=== PATIENT | female | born 1980 | race Caucasian/White ===

== ENCOUNTER 2016-04-10 10:37 | Inpatient (IN) | payer MEDICARE ==
[~2016-04-10] VITALS: Ht 160 cm; Wt 94.8 kg
[~2016-04-10 10:37] MED LIST: HYDR200T5 PO; HYDR2TAB15 PO; PRED5 PO; RIVA20TA PO; ZOLP10TA PO
[2016-04-10] MEDS ORDERED: METHYLPREDNISOLONE 125 MG INJ IV ONE (12:30)
[2016-04-10] MEDS ORDERED: FENTAnyl 50 MCG/ML VIAL IV ONE (12:30)
[2016-04-10] MEDS ORDERED: SOD CHLORIDE 0.9% 1,000 ML IV ONE ×2 (12:30→23:30)
[2016-04-10] MEDS ORDERED: DIPHENHYDRAMINE 50 MG INJ IV ONE ×2 (12:30→20:00)
[2016-04-10 12:47] LABS: ADD UMIC YES; URINE BILIRUBIN (Dip) NEGATIVE (NEGATIVE); URINE BLOOD (Dip) TRACE (NEGATIVE); URINE COLOR YELLOW (YELLOW); URINE GLUCOSE (Dip) NEGATIVE (NEGATIVE); URINE KETONES (Dip) NEGATIVE (NEGATIVE); URINE LEUKOCYTE ESTERASE (Dip) NEGATIVE (NEGATIVE); URINE NITRITE (Dip) NEGATIVE (NEGATIVE); URINE TOTAL PROTEIN (Dip) 1+ (NEGATIVE); URINE UROBILINOGEN (Dip) 0.2 E.U./dL (0.1-1.0)
[2016-04-10 12:48] LABS: BASOPHIL # 0.1 10^3/ul (0.0-0.1); BASOPHILS % 0.6 % (0.0-2.0); LYMPHOCYTES # 0.6 10^3/ul (0.8-2.9); LYMPHOCYTES % 4.3 % (15.0-51.0); MEAN CORPUSCULAR HEMOGLOBIN 28.8 pg (29.0-33.0); MEAN CORPUSCULAR HGB CONC 32.2 g/dl (32.0-37.0); MEAN CORPUSCULAR VOLUME 89.4 fl (82.0-101.0); MEAN PLATELET VOLUME 7.8 fl (7.4-10.4); MONOCYTES % 0.3 % (0.0-11.0); NEUTROPHIL # 13.7 10^3/ul (1.6-7.5); NEUTROPHILS % 94.8 % (39.0-77.0); PLATELET COUNT 246 10^3/UL (140-440); RED BLOOD COUNT 3.81 10^6/ul (4.20-5.40); RED CELL DISTRIBUTION WIDTH 20.9 % (11.5-14.5); UNCORRECTED WBC 14.4 10^3/ul (4.8-10.8); WHITE BLOOD COUNT 14.4 10^3/ul (4.8-10.8)
[2016-04-10 12:50] LABS: CONDITION 1; LH ANALYZER COMMENTS 1
[2016-04-10 12:51] LABS: CHLORIDE 105 mmol/L (97-110); POTASSIUM 4.6 mmol/L (3.5-5.1); SODIUM 141 mmol/L (135-144)
[2016-04-10 12:54] LABS: ANION GAP 16 (8-16); BLOOD UREA NITROGEN 23 mg/dl (7-20); CARBON DIOXIDE 25 mmol/L (21-31); CREATININE 0.88 mg/dl (0.44-1.00)
[2016-04-10 12:55] LABS: CALCIUM 9.4 mg/dl (8.4-10.2); GLUCOSE 122 mg/dl (70-220)
[2016-04-10] MEDS ORDERED: IOHEXOL 100 ML ONE (13:02)
[2016-04-10] MEDS ORDERED: SOD CHLORIDE 0.9% 100 ML ONE (13:03)
[2016-04-10 13:04] LABS: B-TYPE NATRIURETIC PEPTIDE 64 PG/ML (0-125)
[2016-04-10 13:06] LABS: INR 0.93; PROTIME 12.5 Sec (12.2-14.2)
[2016-04-10 13:07] LABS: PARTIAL THROMBOPLASTIN TIME 22.3 Sec (25.0-35.0)
[2016-04-10 13:09] LABS: TROPONIN-I < 0.012 ng/ml (0.00-0.12)
[2016-04-10 13:09] LABS: BACTERIA,URINE RARE; URINE RBCS 0-2 /HPF (0)
--- NOTE | 2016-04-10 13:38 | RADRPT ---
PROCEDURE: XR Chest. CLINICAL INDICATION: Chest pain. TECHNIQUE: Single frontal view of the chest was obtained. COMPARISON: None. FINDINGS: Cardiomediastinal silhouette appears normal Pulmonary vasculature appears normal. There is minimal discoid atelectasis at the right lung base. Costophrenic angles are well defined. The osseous elements appear intact. IMPRESSION: 1. Minimal right basilar discoid atelectasis. 2. No confluent airspace process identified. RPTAT: [facility] Physician Rebecca Date Time Electronically viewed and signed by Checo Chamberlain Physician on 04/10/2016 13:37 /
[2016-04-10] MEDS ORDERED: HYDROmorphONE 1 MG/ML SYG IV STA ×3 (14:07→19:06)
[2016-04-10] MEDS ORDERED: ONDANSETRON 4 MG INJ ONE (14:13)
[2016-04-10] MEDS ORDERED: ONDANSETRON 4 MG INJ IV STA (14:14)
--- NOTE | 2016-04-10 14:22 | RADRPT ---
PROCEDURE: CTA Chest and pulmonary angiogram. CLINICAL INDICATION: Chest pain and shortness of breath. TECHNIQUE: CT scan of the chest and CT pulmonary angiogram was performed on a multidetector high-r esolution CT scanner. High-resolution thin slice coronal and sagittal imaging was obtained from the axial source images. 3-D volumetric rendered post processing was performed as well. The patient w as examined following the uncomplicated intravenous administration of 100 cc of Omnipaque-300. The i mages were reviewed on a PACS workstation. The total exam CTDI equals 55.26 mGy, and the total exam DLP equals 827.72 mGy-cm. COMPARISON: CT pulmonary angiogram March 09, 2016 FINDINGS: There is no central or peripheral pulmonary embolism. Thoracic aorta is normal. No dissection or a neurysm is present. There is minimal atelectasis in the right costophrenic recess. A few scattered ill-defined nodular densities are seen in the right upper lobe suggestive of mild bronchiolitis. N o alveolar infiltrate or mass is present. There is no pleural or pericardial effusion. No pneumoth orax is present. No hilar or mediastinal adenopathy or masses seen. There is a left upper extremit y PICC line. No upper abdominal or adrenal mass is present. The gallbladder has been removed. Thoracic spine is normal. IMPRESSION: No pulmonary embolism. No aortic dissection or aneurysm. A few scattered ill-defined nodular densities right upper lobe suggestive of mild bronchiolitis. Post cholecystectomy. RPTAT: HMJB .Russ Turner MD, Date Time Electronically viewed and signed by .Russ Turner MD, MD on 04/10/2016 14:22 .A/
[2016-04-10] MEDS ORDERED: BEN50 PO (14:25)
[2016-04-10] MEDS ORDERED: VAN500I IMPLANTED (14:26)
[2016-04-10] MEDS ORDERED: VANCOMYCIN 1.25 GM in SOD CHLORIDE 0.9% 250 ML IVPB ONE (18:00)
[2016-04-10] MEDS ORDERED: CEFTRIAXONE 1 GM/50 ML (PMX) 50 ML IVPB ONE (18:00)
[2016-04-10] MEDS ORDERED: ACETAMINOPHEN 325 MG TAB PO PRN ×2 (19:30→20:00)
[2016-04-10] MEDS ORDERED: ONDANSETRON 4 MG INJ IV PRN ×2 (19:30→20:00)
[2016-04-10 19:37] VITALS: TEMP 98.7
[2016-04-10] MEDS ORDERED: LORAZEPAM 2 MG INJ IV PRN (20:00)
[2016-04-10] MEDS ORDERED: NACL 0.9% 3 ML SYG IV SCH (20:00)
[2016-04-10] MEDS ORDERED: DOCUSATE SODIUM 100 MG CAP PO PRN (20:00)
[2016-04-10] MEDS ORDERED: DIPHENHYDRAMINE 50 MG CAP PO PRN (20:00)
[2016-04-10] MEDS ORDERED: ALBUTEROL/IPRATROPIUM (NEB) 3 ML AMP HHN PRN (20:00)
[2016-04-10] MEDS ORDERED: NITROGLYCERIN (SL) 0.4 MG TAB SL PRN (20:00)
[2016-04-10] MEDS ORDERED: hydrALAzine 20 MG INJ IV PRN (20:00)
[2016-04-10] MEDS ORDERED: ZOLPIDEM 5 MG TAB PO PRN (20:00)
[2016-04-10] MEDS ORDERED: NA PHOSPHATE/BIPHOS 133 ML ENEMA PR PRN (20:00)
[2016-04-10] MEDS ORDERED: MAGNESIUM HYDROXIDE 30ML CUP PO PRN (20:00)
[2016-04-10] MEDS ORDERED: HYDROCODONE/APAP (5/325) TAB PO PRN (20:00)
[2016-04-10 20:20] VITALS: PULSE 117
[2016-04-10 20:39] VITALS: Ht 160 cm; Wt 94.8 kg
[2016-04-10 20:50] LABS: CREATINE KINASE 22 IU/L (23-200)
[2016-04-10 21:00] LABS: CK-MB 0.36 ng/ml (0.0-2.4)
[2016-04-10] MEDS ORDERED: HEPARIN 5,000 UNIT/0.5 ML SYG SC SCH (21:00)
[2016-04-10] MEDS ORDERED: VANCOMYCIN 500MG INJ IMPLANTED SCH (21:00)
[2016-04-10 21:04] LABS: TROPONIN-I < 0.012 ng/ml (0.00-0.12)
[2016-04-10 22:02] VITALS: BP 137/78; RESP 20
[2016-04-10] MEDS: SOD CHLORIDE 0.9% 1,000 ML IV SCH (22:14)
[2016-04-10] MEDS: morphine 2 MG INJ IV PRN (22:21)
--- NOTE | 2016-04-10 23:29 | ERA ---
ER Documentation Chief Complaint Date/Time DATE: 04/10/16 TIME: 23:08 Chief Complaint SHORTNESS OF BREATH; SHARP PAIN @ LEFT CHEST AREA NON -RADIATING - HX OF PE HPI This 35-year-old female presents with 2 days of sharp left-sided chest pain with shortness of breath. States that she feels like she is having pulmonary embolism. She has lupus anticoagulant and is currently on Xarelto. She denies fever and chills. Denies dysuria. Has felt generally weak for the last couple days as well. ROS All systems reviewed and are negative except as per history of present illness. Medications Home Meds Reported Medications Vancomycin HCl (Vancomycin HCl) 500 Mg Vial.port, 500 MG IMPLANTED Q12 ON GOING TREATMENT PER PT 04/10/16 Diphenhydramine Hcl* (Benadryl*) 50 Mg Cap, 50 MG PO Q4 Y for ITCHING, CAP 04/10/16 Zolpidem Tartrate* (Ambien*) 10 Mg Tablet, 10 MG PO QHS Y for INSOMNIA, TAB 03/09/16 Hydromorphone Hcl* (Dilaudid*) 2 Mg Tablet, 2 MG PO Q4 Y for PAIN, TAB 03/09/16 Rivaroxaban* (Xarelto*) 20 Mg Tablet, 20 MG PO WITH DINNER, TAB 03/09/16 Prednisone* (Prednisone*) 5 Mg Tab, 5 MG PO DAILY, TAB 03/09/16 Hydroxychloroquine Sulfate* (Plaquenil*) 200 Mg Tab, 400 MG PO DAILY, TAB 03/09/16 Allergies Allergies: Coded Allergies: adhesive tape (Verified Allergy, Severe, 04/10/16) chlorhexidine (Verified Allergy, Severe, anaphylaxis, 03/10/16) ketorolac (Verified Allergy, Severe, anaphylaxis, 03/10/16) NSAIDS (Non-Steroidal Anti-Inflamma (Verified Allergy, Intermediate, hives , 03/10/16) Sulfa (Sulfonamide Antibiotics) (Verified Allergy, Intermediate, hives, ) Uncoded Allergies: CT CONTRAST (Allergy, Severe, 04/10/16) ARTIFICIAL SWEATNERS (Allergy, Unknown, 04/10/16) PMhx/Soc History of Surgery: Yes (CHOLECYSTECTOMY, IVC FILTERS, APPENDECTOMY, META PORTS ) Anesthesia Reaction: No Hx Neurological Disorder: No Hx Cardiac Disorders: No Hx Psychiatric Problems: No Hx Alcohol Use: No Hx Substance Use: No Hx Tobacco Use: No Smoking Status: Never smoker Physical Exam Vitals Vital Signs Date Time Temp Pulse Resp B/P Pulse Ox O2 Delivery O2 Flow Rate FiO2 04/10/16 17:53 118 18 134/95 98 Room Air 04/10/16 16:33 123 18 143/108 98 Room Air 04/10/16 15:32 104 18 130/91 98 Room Air 04/10/16 13:44 122 18 113/89 99 Room Air 04/10/16 10:42 98.3 125 24 124/88 94 Physical Exam Const: [] Mild distress Head: Atraumatic Eyes: Normal Conjunctiva ENT: Normal External Ears, Nose and Mouth. Neck: Full range of motion..~ No meningismus. Resp: Clear to auscultation bilaterally Cardio: Regular tachycardia, no murmurs Abd: Soft, non tender, non distended. Normal bowel sounds Skin: No petechiae or rashes Back: No midline or flank tenderness Ext: No cyanosis, or edema Neur: Awake and alert 3, no focal deficits Psych: Normal Mood and Affect Result Diagram: 04/10/16 1234 04/10/16 1234 Results 24 hrs Laboratory Tests Test 04/10/16 12:28 04/10/16 12:34 04/10/16 17:50 Urine Bacteria RARE Urine Bilirubin NEGATIVE Urine Clarity CLEAR Urine Color YELLOW Urine Epithelial Cells RARE Urine Glucose NEGATIVE% Urine Hemoglobin TRACE Urine Ketones NEGATIVE Urine Leukocyte Esterase NEGATIVE Urine Microscopic RBC 0-2/HPF Urine Microscopic WBC 0-2/HPF Urine Nitrite NEGATIVE Urine Specific [place] 1.010 Urine Total Protein 1+ Urine Urobilinogen 0.2 E.U./dL Urine pH 7.0 Activated Partial Thromboplast Time 22.3Sec Anion Gap 16 B-Type Natriuretic Peptide 64PG/ML Basophils # 0.110^3/ul Basophils % 0.6% Blood Morphology Comment Blood Urea Nitrogen 23mg/dl Calcium Level 9.4mg/dl Carbon Dioxide Level 25mmol/L Chloride Level 105mmol/L Creatinine 0.88mg/dl Eosinophils # 0.010^3/ul Eosinophils % 0.0% Free Thyroxine 1.06ng/dl Glucose Level 122mg/dl Hematocrit 34.0% Hemoglobin 11.0g/dl INR International Normalized Ratio 0.93 Lymphocytes # 0.610^3/ul Lymphocytes % 4.3% Mean Corpuscular Hemoglobin 28.8pg Mean Corpuscular Hemoglobin Concent 32.2g/dl Mean Corpuscular Volume 89.4fl Mean Platelet Volume 7.8fl Monocytes # 0.010^3/ul Monocytes % 0.3% Neutrophils # 13.710^3/ul Neutrophils % 94.8% Nucleated Red Blood Cells # 0.010^3/ul Nucleated Red Blood Cells % 0.0/100WBC Platelet Count 82327^3/UL Potassium Level 4.6mmol/L Prothrombin Time 12.5Sec Prothrombin Time Ratio 1.0 Red Blood Count 3.8110^6/ul Red Cell Distribution Width 20.9% Sodium Level 141mmol/L Troponin I < 0.012ng/ml White Blood Count 14.410^3/ul Lactic Acid Level 2.7mmol/L Current Medications Medications (Trade) Dose Ordered Sig/Omega Route PRN Reason Start Time Stop Time Status Last Admin Dose Admin Methylprednisolone Sodium Succinate (Solu-Medrol) 125 mg ONCE ONCE IV 04/10/16 12:30 04/10/16 12:31 DC 04/10/16 13:10 Diphenhydramine HCl (Benadryl) 50 mg ONCE ONCE IV 04/10/16 12:30 04/10/16 12:31 DC 04/10/16 13:10 Fentanyl 50 mcg 50 mcg ONCE ONCE IV 04/10/16 12:30 04/10/16 12:31 DC 04/10/16 13:10 Sodium Chloride 1,000 ml @ 1,000 mls/hr Q1H ONCE IV 04/10/16 12:30 04/10/16 13:29 DC 04/10/16 13:10 Iohexol 100 ml @ STK-MED ONCE .ROUTE 04/10/16 13:02 04/10/16 13:03 DC 04/10/16 13:28 Sodium Chloride (NS) 100 ml @ STK-MED ONCE .ROUTE 04/10/16 13:03 04/10/16 13:04 DC 04/10/16 13:38 Hydromorphone HCl (Dilaudid) 1 mg ONCE STAT IV 04/10/16 14:07 04/10/16 14:08 DC 04/10/16 14:19 Ondansetron HCl (Zofran Inj) 4 mg STK-MED ONCE .ROUTE 04/10/16 14:13 04/10/16 14:14 DC Ondansetron HCl (Zofran Inj) 4 mg ONCE STAT IV 04/10/16 14:14 04/10/16 14:15 DC 04/10/16 14:19 Hydromorphone HCl 1 mg 1 mg ONCE STAT IV 04/10/16 16:38 04/10/16 16:39 DC 04/10/16 16:42 Vancomycin HCl 1.25 gm/Sodium Chloride 250 ml @ 83.333 mls/ hr ONCE ONCE IVPB 04/10/16 18:00 04/10/16 20:59 DC 04/10/16 19:52 Ceftriaxone Sodium (Rocephin) 50 ml @ 100 mls/hr ONCE ONCE IVPB 04/10/16 18:00 04/10/16 18:29 DC 04/10/16 17:50 Hydromorphone HCl (Dilaudid) 1 mg ONCE STAT IV 04/10/16 19:06 04/10/16 19:07 DC 04/10/16 19:52 Procedures/MDM 35-year-old female multiple risk factors for pulmonary embolism. Stated has leukocytosis and lactic acidosis. Also has persistent tachycardia. He should meet Sirs Oniel the only sign of any infection is the slight airway inflammation on the CT scan. This likely indicates a viral infection. Diagnosis of sepsis was not made until 1435 when laboratories returned and patient remained persistently tachycardic. She is given 3 L total fluid by myself 1 L in the emergency room and 2 L after she had been taking up to the floor, to complete 30 mL/kg and a morbidly obese patient. She is also given a gram of Rocephin. She received Benadryl and Dilaudid as well as Solu-Medrol because this is her normal protocol for a CT scan. She received Dilaudid and vancomycin at home per IV. Ordered dose of her vancomycin as well as her request. She had asked her more Dilaudid. She stated that she could not get her vancomycin without receiving 50 mild grams IV Benadryl first. I do suspect narcotic and IV Benadryl dependence in this patient. She had an elevated lactic acid as well. Does have chest pain and initial troponin is negative and patient has a nonischemic EKG and with a negative troponin acute coronary syndrome is not completely ruled out. She'll be admitted for serial troponins. Spoke with Dr. Diamond who will be admitting. EKG interpretation: Sinus tachycardia rate of 124, normal axis, no ST-T wave changes concerning for acute ischemia youth nutritional monitor interpretation: Sinus tachycardia with no other arrhythmia Chest x-ray interpretation by myself: I see no acute process, no widened mediastinum, no pneumothorax, no infiltrates, no fractures. CTA chest interpretation: No pulmonary embolism or dissection, no acute infiltrates, bronchiolitis, no pulmonary edema, no fractures Critical care time: 31 minutes: Includes management of sepsis in a patient with multiple medical comorbidities, careful fluid administration, antibiotic selection, chart review, discussion with patient admitting doctor, multiple visits the patient's bedside to reassess status. Does not including bubble procedures. Departure Diagnosis: Primary Impression: Sepsis Additional Impressions: Chest pain Dyspnea Normocytic anemia Lactic acidosis Condition: Serious DONNA STAPLETON DO Apr 10, 2016 23:21
[2016-04-10] MEDS: SOD CHLORIDE 0.9% 1,000 ML IV ONE (23:57)
[2016-04-11] VITALS (10 sets, daily range): BP systolic 133–146; BP diastolic 73–87; PULSE 84–127; RESP 18–20
[2016-04-11] MEDS: HYDROmorphONE 2 MG TAB PO PRN ×3 (00:13→18:23)
[2016-04-11] MEDS: DIPHENHYDRAMINE 50 MG INJ IV PRN ×4 (00:13→20:49)
[2016-04-11] MEDS: SOD CHLORIDE 0.9% 1,000 ML IV ONE (00:19)
[2016-04-11 01:32] LABS: CREATINE KINASE < 20 IU/L (23-200)
[2016-04-11 02:16] LABS: CK-MB 0.25 ng/ml (0.0-2.4)
[2016-04-11 02:34] LABS: TROPONIN-I < 0.012 ng/ml (0.00-0.12)
[2016-04-11] MEDS: SOD CHLORIDE 0.9% 1,000 ML IV SCH ×3 (05:07→12:09)
[2016-04-11] MEDS: morphine 2 MG INJ IV PRN ×4 (05:48→20:48)
[2016-04-11] MEDS: PANTOPRAZOLE (EC) 40 MG TAB PO SCH (05:48)
[2016-04-11 07:45] LABS: CHOL/HDL RATIO 4.6 RATIO
[2016-04-11 08:16] LABS: THYROID STIMULATING HORMONE 0.862 MIU/L (0.465-4.680)
--- NOTE | 2016-04-11 08:28 | HP ---
DATE OF ADMISSION: 04/10/2016 Patient is a 35-year-old female with a history of pulmonary embolism, status post IVC filter, on Xar elto, lupus, questionable osteomyelitis of the cervical and thoracic spine, chronic pain syndrome, o besity with a BMI of 37, and possible hemolytic anemia, who presented to the emergency department wi th chest pain. She stated that the pain started this morning, and it is localized under her left br east and is sharp in nature and it is nonradiating. The patient was admitted here a month ago after she presented with chest pain. At that time, she had 3 negative troponins and her echocardiogram s howed EF of 50% to 55%. Now, she states that her pain started this morning as described above. When she presented to the ER she was tachycardic with a heart rate of 125. Otherwise, the rest of h er vitals were stable. CT pulmonary angiogram was done and it was negative for PE, aortic dissection, or aneurysm, but note d were a few scattered, ill-defined nodular densities in the right upper lobe suggestive of mild bro nchiolitis. Chest x-ray shows minimal right basilar discoid atelectasis. Laboratory value was notable for a WBC of 14.4. The patient was given Solu-Medrol with Dilaudid and was started on antibiotics. Of note, during last hospitalization it was noted that the patient did exhibit some drug seeking beh avior. She also reported that she had cervical and thoracic spine osteomyelitis for which she state d she gets treated with antibiotics for 9 months and then takes a break for 3 months. She was suppo sed to present documentation, but during last hospitalization she never did. In any case, patient i s currently admitted to telemetry unit to rule out ACS. Her first troponin is negative and EKG with no ST-T wave abnormality. Of note, she did present with a lactic acid of 2.7. REVIEW OF SYSTEMS: A 12-point review of systems performed, negative except as in the HPI. PAST MEDICAL HISTORY: As per HPI. PAST SURGICAL HISTORY: Cholecystectomy, IVC filter placement, appendectomy. SOCIAL HISTORY: Denied a history of tobacco, alcohol or illicit drug use. ALLERGIES: NO KNOWN DRUG ALLERGIES. HOME MEDICATIONS: 1. Benadryl. 2. Plaquenil. 3. Vancomycin. 4. Xarelto. 5. Dilaudid. 6. Ambien. 7. Prednisone. PHYSICAL EXAMINATION: VITAL SIGNS: Blood pressure 137/78, heart rate 112, respiratory rate 20, temperature 98, oxygen sat uration 98% on room air. GENERAL: No acute distress. Obese. HEENT: No obvious head deformity. Pupils are reactive to light. Extraocular muscles intact. CARDIOVASCULAR: Tachycardic with regular rhythm. LUNGS: Clear. ABDOMEN: Obese, soft, nontender, nondistended. EXTREMITIES: No edema. She has a PICC line in the upper extremity. NEUROLOGIC: No focal deficit. LABORATORY: Pertinent positives as mentioned in the HPI. IMAGING: CT pulmonary angiogram and chest x-ray results as mentioned in the HPI. IMPRESSION: 1. Chest pain, will rule out acute coronary syndrome. 2. Systemic inflammatory response syndrome, with leukocytosis and tachycardia. 3. History of lupus. 4. Chronic pain syndrome. 5. Lactic acidosis. 6. 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 PLAN: Continue telemetry monitoring. We will rule out ACS by sending additional troponins. So far her first troponin and EKG have been negative. We will not perform a 2D echo since she had one las t month and it showed an ejection fraction of 50% to 55%. She will be placed on a beta milo, oxy gen, and as-needed nitroglycerin and morphine. She will be continued with her home medication with adjustment as needed. As far as her presentation of SIRS is concerned, her leukocytosis is most lik kraig steroid induced, as she is on prednisone, but given the lactic acidosis and the fact that she re ported chronic osteomyelitis, it could be from an infectious etiology as well. We will send blood c ulture. Further workup and management per clinical course. Dictated By: LISA OVERTON/OLENA Conf#: [id number] DID#: [id number]
[2016-04-11 08:57] LABS: BASOPHIL # 0.1 10^3/ul (0.0-0.1); BASOPHILS % 0.3 % (0.0-2.0); HEMATOCRIT 28.6 % (37.0-47.0); HEMOGLOBIN 9.3 g/dl (12.0-16.0); LYMPHOCYTES # 0.7 10^3/ul (0.8-2.9); LYMPHOCYTES % 4.4 % (15.0-51.0); MEAN CORPUSCULAR HEMOGLOBIN 29.1 pg (29.0-33.0); MEAN CORPUSCULAR HGB CONC 32.6 g/dl (32.0-37.0); MEAN CORPUSCULAR VOLUME 89.2 fl (82.0-101.0); MEAN PLATELET VOLUME 8.4 fl (7.4-10.4); MONOCYTE # 0.6 10^3/ul (0.3-0.9); MONOCYTES % 3.5 % (0.0-11.0); NEUTROPHIL # 15.3 10^3/ul (1.6-7.5); NEUTROPHILS % 91.8 % (39.0-77.0); PLATELET COUNT 226 10^3/UL (140-440); RED BLOOD COUNT 3.21 10^6/ul (4.20-5.40); RED CELL DISTRIBUTION WIDTH 20.9 % (11.5-14.5); UNCORRECTED WBC 16.6 10^3/ul (4.8-10.8); WHITE BLOOD COUNT 16.6 10^3/ul (4.8-10.8)
[2016-04-11] MEDS: ASPIRIN (EC) 325 MG TAB PO SCH (09:00)
[2016-04-11 09:07] LABS: CONDITION 1; LH ANALYZER COMMENTS 1
[2016-04-11] MEDS: predniSONE 5 MG TAB PO SCH (09:24)
[2016-04-11] MEDS: HYDROXYCHLOROQUINE 200 MG TAB PO SCH (09:24)
[2016-04-11 09:58] LABS: POTASSIUM 4.1 mmol/L (3.5-5.1)
[2016-04-11 10:01] LABS: CREATININE 0.76 mg/dl (0.44-1.00); PHOSPHORUS 3.2 mg/dl (2.5-4.9)
[2016-04-11 10:02] LABS: CALCIUM 8.5 mg/dl (8.4-10.2); MAGNESIUM 1.9 mg/dl (1.7-2.5)
[2016-04-11] MEDS ORDERED: CEPASTAT LOZENGE MT PRN (11:30)
[2016-04-11] MEDS: ALBUTEROL/IPRATROPIUM (NEB) 3 ML AMP HHN PRN ×2 (12:58→20:58)
[2016-04-11] MEDS ORDERED: VANCOMYCIN IV PER PHARMACY XX SCH (16:00)
[2016-04-11] MEDS: LEVOFLOXACIN 750MG/D5W (PMX) 150 ML IVPB SCH (16:35)
--- NOTE | 2016-04-11 18:23 | PN ---
Date/Time of Note Date/Time of Note DATE: 04/11/16 TIME: 18:18 Assessment/Plan VTE Prophylaxis VTE Prophylaxis Intervention: other Lines/Catheters Urinary Cath still in place: No Assessment/Plan Chief Complaint/Hosp Course 1. Atypical Chest pain 2/2 mild bronchiolitis in the RUL -no ACS -Levaquin IV 2. Systemic inflammatory response syndrome, with leukocytosis and tachycardia. -pt on Steroids and reports having pain but may be 2/2 #1 3. History of lupus -cont Prednisone 4. Chronic pain syndrome -cont Home regimen with Dilaudid PO 5. Lactic acidosis-resolved 6. Self-reported osteomyelitis of the cervical and thoracic spine -this has never been conformed but continue Vanco for now PPx- Xarelto Dispo- DC in 1-2 days Problems: Subjective 24 Hr Interval Summary Musculoskeletal: bone/joint pain Exam/Review of Systems Vital Signs Vitals Vital Signs Date Time Temp Pulse Resp B/P Pulse Ox O2 Delivery O2 Flow Rate FiO2 04/11/16 16:03 104 04/11/16 16:00 98.6 18 142/86 93 Room Air 04/11/16 13:00 21 Intake and Output 04/10/16 04/10/16 04/11/16 15:00 23:00 07:00 Intake Total 1000 ml 1400 ml Balance 1000 ml 1400 ml Exam Constitutional: alert, oriented Respiratory: congested cough Cardiovascular: regular rate and rhythm Gastrointestinal: soft, No distended Musculoskeletal: nl extremities to inspection Results Result Diagram: 04/11/16 0535 04/11/16 0912 Results 24 hrs Laboratory Tests Test 04/10/16 20:25 04/11/16 01:06 04/11/16 05:35 04/11/16 09:12 Creatine Kinase 22 L < 20 L Creatine Kinase Index 1.6 Creatinine Kinase MB (Mass) 0.36 0.25 Lactic Acid Level 2.6 H 2.5 H 2.4 H Troponin I < 0.012 < 0.012 Basophils # 0.1 Basophils % 0.3 Blood Morphology Comment Cholesterol Level 196 Cholesterol/HDL Ratio 4.6 Eosinophils # 0.0 Eosinophils % 0.0 HDL Cholesterol 42 Hematocrit 28.6 L Hemoglobin 9.3 L Hemoglobin A1c 4.6 LDL Cholesterol, Calculated 136 Lymphocytes # 0.7 L Lymphocytes % 4.4 L Mean Corpuscular Hemoglobin 29.1 Mean Corpuscular Hemoglobin Concent 32.6 Mean Corpuscular Volume 89.2 Mean Platelet Volume 8.4 Monocytes # 0.6 Monocytes % 3.5 Neutrophils # 15.3 H Neutrophils % 91.8 H Nucleated Red Blood Cells # 0.0 Nucleated Red Blood Cells % 0.0 Platelet Count 226 Red Blood Count 3.21 L Red Cell Distribution Width 20.9 H Thyroid Stimulating Hormone (TSH) 0.862 Triglycerides Level 92 White Blood Count 16.6 H Anion Gap 13 Blood Urea Nitrogen 17 Calcium Level 8.5 Carbon Dioxide Level 24 Chloride Level 109 Creatinine 0.76 Glucose Level 112 Magnesium Level 1.9 Phosphorus Level 3.2 Potassium Level 4.1 Sodium Level 142 Test 04/11/16 12:18 Lactic Acid Level 1.5 Medications Medications Current Medications Ondansetron HCl (Zofran Inj) 4 mg Q6H PRN IV NAUSEA AND/OR VOMITING; Start at 20:00 Acetaminophen (Tylenol Tab) 650 mg Q6H PRN PO PAIN LEVEL 1-3 OR FEVER; Start at 20:00 Acetaminophen/ Hydrocodone Bitart ([place] (5/325)) 1 tab Q6H PRN PO MODERATE PAIN LEVEL 4-6; Start 04/10/16 at 20:00 Morphine Sulfate (morphine) 2 mg Q4H PRN IV SEVERE PAIN LEVEL 7-10 Last administered on 04/11/16 16:17; Admin Dose 2 MG; Start 04/10/16 at 20:00 Docusate Sodium (Colace) 100 mg Q12H PRN PO CONSTIPATION; Start 04/10/16 at 20: 00 Magnesium Hydroxide (Milk Of Mag) 30 ml DAILY PRN PO CONSTIPATION; Start at 20:00 Sodium Biphosphate/ Sodium Phosphate (Fleet Enema) 133 ml DAILY PRN [place] CONSTIPATION; Start 04/10/16 at 20:00 Pantoprazole (Protonix Tab) 40 mg DAILY@06 PO Last administered on 04/11/16 05 :48; Admin Dose 40 MG; Start 04/11/16 at 06:00 Lorazepam 0.5 mg 0.5 mg Q6H PRN IV ANXIETY; Start 04/10/16 at 20:00 Sodium Chloride (NS) 1,000 ml @ 100 mls/hr Q10H IV Last administered on 12:09; Admin Dose 100 MLS/HR; Start 04/10/16 at 19:41 Hydralazine HCl (Apresoline) 10 mg Q6H PRN IV ELEVATED BLOOD PRESSURE; Start at 20:00 Clonidine (Catapres) 0.1 mg Q6H PRN PO ELEVATED BLOOD PRESSURE; Start 04/10/16 at 20:00 Nitroglycerin (Nitroglycerin (Sl Tab) 0.4 Mg) 1 tab Q5M PRN SL ANGINA; Start at 20:00 Aspirin (Ecotrin) 325 mg DAILY PO ; Start 04/11/16 at 09:00 Hydromorphone HCl (Dilaudid) 2 mg Q4 PRN PO PAIN Last administered on 09:23; Admin Dose 2 MG; Start 04/10/16 at 20:00 Hydroxychloroquine Sulfate (Plaquenil) 400 mg DAILY PO Last administered on 09:24; Admin Dose 400 MG; Start 04/11/16 at 09:00 Prednisone (Prednisone) 5 mg DAILY PO Last administered on 04/11/16 09:24; Admin Dose 5 MG; Start 04/11/16 at 09:00 Zolpidem Tartrate (Ambien) 10 mg QHS PRN PO INSOMNIA; Start 04/10/16 at 20:00 Diphenhydramine HCl (Benadryl) 50 mg Q4 PRN IV ITCHING Last administered on 16:56; Admin Dose 50 MG; Start 04/10/16 at 23:00 Phenol 1 lozenge 1 lozenge Q1H PRN [place] COUGH; Start 04/11/16 at 11:30 Levofloxacin/ Dextrose 150 ml @ 100 mls/hr Q24H IVPB Last administered on 04/11 16:35; Admin Dose 100 MLS/HR; Start 04/11/16 at 17:00 Vancomycin HCl/ Sodium Chloride (Vancocin/NS) 250 ml @ 83.333 mls/ hr Q12H IVPB ; Start 04/11/16 at 18:00 ZULEIMA ERAZO Apr 11, 2016 18:23
[2016-04-11] MEDS: RIVAROXABAN 20 MG TABLET PO SCH (18:24)
[2016-04-11] MEDS: VANCOMYCIN 1.5 GM in SOD CHLORIDE 0.9% 250 ML IVPB SCH (18:24)
[2016-04-12] VITALS (13 sets, daily range): BP systolic 136–166; BP diastolic 67–100; PULSE 83–108; RESP 18–20
[2016-04-12] MEDS: DIPHENHYDRAMINE 50 MG INJ IV PRN ×6 (00:50→21:35)
[2016-04-12] MEDS: morphine 2 MG INJ IV PRN ×6 (00:50→21:35)
[2016-04-12] MEDS: SOD CHLORIDE 0.9% 1,000 ML IV SCH ×4 (01:57→21:36)
[2016-04-12] MEDS: PANTOPRAZOLE (EC) 40 MG TAB PO SCH (05:01)
[2016-04-12] MEDS: VANCOMYCIN 1.5 GM in SOD CHLORIDE 0.9% 250 ML IVPB SCH ×2 (05:02→18:23)
[2016-04-12 07:58] LABS: POTASSIUM 3.3 mmol/L (3.5-5.1)
[2016-04-12 08:00] LABS: CREATININE 0.9 mg/dl (0.44-1.00)
[2016-04-12 08:01] LABS: CALCIUM 8.2 mg/dl (8.4-10.2)
[2016-04-12 08:21] LABS: BASOPHILS % 0.3 % (0.0-2.0); EOSINOPHILS % 0.2 % (0.0-7.0); HEMATOCRIT 25.9 % (37.0-47.0); HEMOGLOBIN 8.5 g/dl (12.0-16.0); LYMPHOCYTES # 1.4 10^3/ul (0.8-2.9); LYMPHOCYTES % 15.1 % (15.0-51.0); MEAN CORPUSCULAR HEMOGLOBIN 29.6 pg (29.0-33.0); MEAN CORPUSCULAR HGB CONC 32.7 g/dl (32.0-37.0); MEAN CORPUSCULAR VOLUME 90.5 fl (82.0-101.0); MONOCYTE # 0.5 10^3/ul (0.3-0.9); MONOCYTES % 5.5 % (0.0-11.0); NEUTROPHIL # 7.4 10^3/ul (1.6-7.5); NEUTROPHILS % 78.9 % (39.0-77.0); PLATELET COUNT 173 10^3/UL (140-440); RED BLOOD COUNT 2.86 10^6/ul (4.20-5.40); RED CELL DISTRIBUTION WIDTH 21.2 % (11.5-14.5); UNCORRECTED WBC 9.4 10^3/ul (4.8-10.8); WHITE BLOOD COUNT 9.4 10^3/ul (4.8-10.8)
[2016-04-12 08:22] LABS: CONDITION 1; LH ANALYZER COMMENTS 1
[2016-04-12] MEDS: ASPIRIN (EC) 325 MG TAB PO SCH (08:48)
[2016-04-12] MEDS: HYDROXYCHLOROQUINE 200 MG TAB PO SCH (08:49)
[2016-04-12] MEDS: predniSONE 5 MG TAB PO SCH (08:49)
[2016-04-12] MEDS ORDERED: POTASSIUM CHLORIDE (SR) 20 MEQ TAB PO STA (13:19)
--- NOTE | 2016-04-12 13:22 | PN ---
Date/Time of Note Date/Time of Note DATE: 04/12/16 TIME: 13:17 Assessment/Plan VTE Prophylaxis VTE Prophylaxis Intervention: other Lines/Catheters IV Catheter Type (from Nrs): PICC Line Central line still needed: Yes Urinary Cath still in place: No Assessment/Plan Assessment/Plan 1.Chest pain, chest wall pain from cough 2. Acute bronchitis, still with SOB, on levaquin and vanco 3. Systemic inflammatory response syndrome, with leukocytosis and tachycardia. 4. History of lupus. 5. Lactic acidosis. 6. 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 7. Chronic pain syndrome. Subjective 24 Hr Interval Summary Free Text/Dictation still cough with diffuse frontal chest pain, shortness of breath Exam/Review of Systems Vital Signs Vitals Vital Signs Date Time Temp Pulse Resp B/P Pulse Ox O2 Delivery O2 Flow Rate FiO2 04/12/16 12:10 94 04/12/16 11:34 98.2 20 136/75 95 04/12/16 07:28 Room Air 04/11/16 20:59 21 Intake and Output 04/11/16 04/11/16 04/12/16 15:00 23:00 07:00 Intake Total 1600 ml 1583.33 ml Balance 1600 ml 1583.33 ml Exam Constitutional: alert, oriented, well developed Psych: nl mood/affect, no complaints Head: atraumatic, normocephalic Eyes: EOMI, PERRL, nl conjunctiva, nl lids, nl sclera ENMT: mucosa pink and moist, nl external ears & nose, nl lips & teeth, nl nasal mucosa & septum Neck: non-tender, supple Respiratory: other (diffuse rhonchi) Cardiovascular: nl pulses, regular rate and rhythm, No S3, No S4, No bruits, No diastolic murmur, No edema, No gallop, No irregular rhythm, No jugular venous distention (JVD), No murmurs/extra sounds, No rub, No systolic murmur Gastrointestinal: bowel sounds, nl liver, spleen, non-tender, soft, No ascites, No distended, No firm, No hepatomegaly, No mass, No rebound or guarding, No splenomegaly, No surgical scars, No tender Musculoskeletal: nl extremities to inspection Extremities: normal pulses, No calf tenderness, No clubbing, No cyanosis, No edema, No palpable cord, No pitting pedal edema, No tenderness 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, nl mental status, nl speech, nl strength Skin: nl turgor, rash or lesions Lymph: nl lymph nodes Results Result Diagram: 04/12/16 0600 04/12/16 0600 Results 24 hrs Laboratory Tests Test 04/11/16 17:45 04/12/16 06:00 Lactic Acid Level 1.6 Anion Gap 15 Basophils # 0.0 Basophils % 0.3 Blood Morphology Comment Blood Urea Nitrogen 16 Calcium Level 8.2 L Carbon Dioxide Level 22 Chloride Level 111 H Creatinine 0.90 Eosinophils # 0.0 Eosinophils % 0.2 Glucose Level 86 Hematocrit 25.9 L Hemoglobin 8.5 L Lymphocytes # 1.4 Lymphocytes % 15.1 Mean Corpuscular Hemoglobin 29.6 Mean Corpuscular Hemoglobin Concent 32.7 Mean Corpuscular Volume 90.5 Mean Platelet Volume 8.0 Monocytes # 0.5 Monocytes % 5.5 Neutrophils # 7.4 Neutrophils % 78.9 H Nucleated Red Blood Cells # 0.0 Nucleated Red Blood Cells % 0.0 Platelet Count 173 # Potassium Level 3.3 L Red Blood Count 2.86 L Red Cell Distribution Width 21.2 H Sodium Level 145 H White Blood Count 9.4 # Medications Medications Current Medications Ondansetron HCl (Zofran Inj) 4 mg Q6H PRN IV NAUSEA AND/OR VOMITING; Start at 20:00 Acetaminophen (Tylenol Tab) 650 mg Q6H PRN PO PAIN LEVEL 1-3 OR FEVER; Start at 20:00 Acetaminophen/ Hydrocodone Bitart ([place] (5/325)) 1 tab Q6H PRN PO MODERATE PAIN LEVEL 4-6; Start 04/10/16 at 20:00 Morphine Sulfate (morphine) 2 mg Q4H PRN IV SEVERE PAIN LEVEL 7-10 Last administered on 04/12/16t 13:03; Admin Dose 2 MG; Start 04/10/16 at 20:00 Docusate Sodium (Colace) 100 mg Q12H PRN PO CONSTIPATION; Start 04/10/16 at 20: 00 Magnesium Hydroxide (Milk Of Mag) 30 ml DAILY PRN PO CONSTIPATION; Start at 20:00 Sodium Biphosphate/ Sodium Phosphate (Fleet Enema) 133 ml DAILY PRN [place] CONSTIPATION; Start 04/10/16 at 20:00 Pantoprazole (Protonix Tab) 40 mg DAILY@06 PO Last administered on 04/12/16 05 :01; Admin Dose 40 MG; Start 04/11/16 at 06:00 Lorazepam 0.5 mg 0.5 mg Q6H PRN IV ANXIETY; Start 04/10/16 at 20:00 Sodium Chloride (NS) 1,000 ml @ 100 mls/hr Q10H IV Last administered on 01:57; Admin Dose 100 MLS/HR; Start 04/10/16 at 19:41 Hydralazine HCl (Apresoline) 10 mg Q6H PRN IV ELEVATED BLOOD PRESSURE; Start at 20:00 Clonidine (Catapres) 0.1 mg Q6H PRN PO ELEVATED BLOOD PRESSURE Last administered on 04/12/16 08:49; Admin Dose 0.1 MG; Start 04/10/16 at 20:00 Nitroglycerin (Nitroglycerin (Sl Tab) 0.4 Mg) 1 tab Q5M PRN SL ANGINA; Start at 20:00 Aspirin (Ecotrin) 325 mg DAILY PO ; Start 04/11/16 at 09:00 Hydromorphone HCl (Dilaudid) 2 mg Q4 PRN PO PAIN Last administered on 18:23; Admin Dose 2 MG; Start 04/10/16 at 20:00 Hydroxychloroquine Sulfate (Plaquenil) 400 mg DAILY PO Last administered on 08:49; Admin Dose 400 MG; Start 04/11/16 at 09:00 Prednisone (Prednisone) 5 mg DAILY PO Last administered on 04/12/16 08:49; Admin Dose 5 MG; Start 04/11/16 at 09:00 Zolpidem Tartrate (Ambien) 10 mg QHS PRN PO INSOMNIA; Start 04/10/16 at 20:00 Diphenhydramine HCl (Benadryl) 50 mg Q4 PRN IV ITCHING Last administered on 13:02; Admin Dose 50 MG; Start 04/10/16 at 23:00 Phenol 1 lozenge 1 lozenge Q1H PRN MT COUGH Last administered on 04/12/16 05: 01; Admin Dose 1 LOZENGE; Start 04/11/16 at 11:30 Levofloxacin/ Dextrose 150 ml @ 100 mls/hr Q24H IVPB Last administered on 04/11 16:35; Admin Dose 100 MLS/HR; Start 04/11/16 at 17:00 Vancomycin HCl/ Sodium Chloride (Vancocin/NS) 250 ml @ 83.333 mls/ hr Q12H IVPB Last administered on 04/12/16 05:02; Admin Dose 83.333 MLS/HR; Start at 18:00 Miscellaneous Information (*Rx Drug Level Order Reminder*) VANCOMYCIN TROUGH AT 0500 ONCE ONCE XX ; Start 04/13/16 at 05:00; Stop 04/13/16 at 05:01 JILLIAN COLORADO MD Apr 12, 2016 13:22
[2016-04-12] MEDS: LEVOFLOXACIN 750MG/D5W (PMX) 150 ML IVPB SCH (17:04)
[2016-04-12] MEDS: RIVAROXABAN 20 MG TABLET PO SCH (18:22)
--- NOTE | 2016-04-12 20:10 | CONS ---
DATE OF ADMISSION: 04/10/2016 DATE OF CONSULTATION: 04/12/2016 TYPE OF CONSULTATION: Cardiology. REASON FOR CONSULTATION: Chest pain, assess for acute coronary syndrome. REQUESTING PHYSICIAN: Dr. Mckeon HISTORY OF PRESENT ILLNESS: Ms. Genao is a 35-year-old female with a history of recurrent pulmon belén embolism, status post IVC filter placement, on systemic anticoagulation; hypercoagulable state _ ___ anticoagulant; obesity who initially presented with complaints of substernal chest pain. The pa tient states that she had stabbing substernal chest pain, was afraid she was having another pulmonar y embolism. Upon arrival in the emergency department, temperature of 97.5, blood pressure 133/95, p ulse 121, respiratory rate 22, saturating 96%. The patient's labs revealed a white cell count of 22 .8, hemoglobin 9.4, platelet count of 354. Sodium of 141, potassium 3.5, creatinine 0.7, BUN of 20. Troponin negative. BNP 257. INR 1. UA negative. The patient underwent a CTA revealing no evide nce of central, proximal or segmental pulmonary emboli; distal segmental and subsegmental branches w ere not well visualized; no acute airspace infiltrates. The patient additionally underwent a renal ultrasound revealing 2 left renal cysts up to 1.4 cm, multiple right kidney hyperenhancing ____ structures seen on CT, no ndistended urinary bladder. The patient's electrocardiogram was sinus tachycardia, rate of 124, nor mal axis, normal intervals, nonspecific ST and T abnormalities. The patient subsequently admitted t o the floor and since admit to the floor denies ongoing chest pain, has had some improvement in her systolic blood pressure, continues to have mild tachycardia. PAST MEDICAL HISTORY: As above in HPI. MEDICATIONS CURRENTLY IN HOSPITAL: 1. Xarelto 20 mg daily. 2. Vancomycin. 3. Levofloxacin. 4. Aspirin 325 grams daily. 5. Plaquenil 400 mg daily. 6. Prednisone 5 mg daily. 7. Protonix 40 mg daily. ALLERGIES: 1. NSAIDS. 2. SULFA. 3. CHLORHEXADINE. SOCIAL HISTORY: No tobacco, ETOH, illicit drug use. FAMILY HISTORY: No history of sudden cardiac or early CAD. REVIEW OF SYSTEMS: As above in HPI. CONSTITUTIONAL: No fevers, chills. PULMONARY: No current shortness of breath. CARDIOVASCULAR: Intermittent chest pain. GASTROINTESTINAL: No vomiting. GENITOURINARY: No hematuria. MUSCULOSKELETAL: No degenerative joint disease. PSYCHIATRIC: The patient denies depression. NEUROLOGIC: No documented history of CVA. ENDOCRINE: No documented history of diabetes mellitus or thyroid disease. PHYSICAL EXAMINATION: VITAL SIGNS: Temperature 98.2, blood pressure most recently 151/89, respiratory rate 20, saturating 98%. GENERAL: The patient is alert, awake. No acute distress. NECK: JVP approximately 9 cm water. CHEST: Fair air movement throughout. HEART: Regular rate, rhythm. Normal S1, S2. I/ systolic murmur. Nondisplaced PMI. ABDOMEN: Positive bowel sounds, soft. EXTREMITIES: No pitting edema. 1+ pulses bilaterally at posterior tibial. LABORATORIES: As above in HPI with most recent from today: White cells 9.4, hemoglobin 8.5, platel et count of 173. Sodium 145, potassium 3.3, creatinine 0.9, BUN of 16. INR 0.9. UA negative. ELECTROCARDIOGRAM: As above in HPI. No further electrocardiograms for my review at this time. IMPRESSION: 1. Chest pain, somewhat atypical symptomatology for cardiac etiology at this time. Assess for acut e coronary syndrome. 2. Abnormal electrocardiogram with nonspecific ST and T abnormalities, assess for acute coronary sy ndrome. 3. History of deep venous thrombosis, status post inferior vena cava filter, on systemic anticoagul ation with a negative CT, CTA. 4. Anemia. 5. Hypernatremia. 6. Leukocytosis, improving. RECOMMENDATIONS: 1. At this time would maintain the patient on telemetry monitoring to follow rhythm and rate contro l closely. 2. Continue the patient's aspirin for prophylaxis against cardiovascular events and will start martha ent on beta milo to improve overall heart rate and blood pressure control in setting of chest carolyn n, EKG abnormalities. 3. Continue the patient's Xarelto systemic anticoagulation given history of recurrent DVT, PE. 4. The patient is status post 2D echo 12/____ preserved EF, and now patient has recurrent admission s for chest pain less than a month apart and thus will schedule patient for a stress test to assess for any possible ischemia lending to her symptoms of chest pain, EKG abnormalities and recurrent adm issions to the hospital. Thank you for allowing me to take part in the care of this patient. I will continue to follow along very closely with you with further recommendations to be made as the patient progresses through her inpatient hospital clinical course. Dictated By: ILAN MACDONALD/OLENA Conf#: [id number] DID#: [id number] CC: JILLIAN MCKEON MD;*EndCC*
[2016-04-12] MEDS: METOPROLOL 25 MG TAB PO SCH (21:36)
[2016-04-13] VITALS (9 sets, daily range): BP systolic 139–159; BP diastolic 77–108; PULSE 73–97; RESP 20
[2016-04-13] MEDS: DIPHENHYDRAMINE 50 MG INJ IV PRN ×6 (01:40→22:54)
[2016-04-13] MEDS: morphine 2 MG INJ IV PRN ×6 (01:41→22:55)
[2016-04-13] MEDS: PANTOPRAZOLE (EC) 40 MG TAB PO SCH (06:00)
[2016-04-13 07:10] LABS: CHOL/HDL RATIO 4.7 RATIO
[2016-04-13 07:41] LABS: BASOPHILS % 0.4 % (0.0-2.0); EOSINOPHILS # 0.1 10^3/ul (0.0-0.5); EOSINOPHILS % 1.1 % (0.0-7.0); HEMATOCRIT 26.6 % (37.0-47.0); HEMOGLOBIN 8.7 g/dl (12.0-16.0); LYMPHOCYTES # 1.7 10^3/ul (0.8-2.9); LYMPHOCYTES % 18.9 % (15.0-51.0); MEAN CORPUSCULAR HEMOGLOBIN 29.7 pg (29.0-33.0); MEAN CORPUSCULAR HGB CONC 32.8 g/dl (32.0-37.0); MEAN CORPUSCULAR VOLUME 90.6 fl (82.0-101.0); MEAN PLATELET VOLUME 7.9 fl (7.4-10.4); MONOCYTE # 0.6 10^3/ul (0.3-0.9); MONOCYTES % 7.1 % (0.0-11.0); NEUTROPHIL # 6.6 10^3/ul (1.6-7.5); NEUTROPHILS % 72.5 % (39.0-77.0); PLATELET COUNT 222 10^3/UL (140-440); RED BLOOD COUNT 2.93 10^6/ul (4.20-5.40); UNCORRECTED WBC 9.2 10^3/ul (4.8-10.8); WHITE BLOOD COUNT 9.2 10^3/ul (4.8-10.8)
[2016-04-13 07:43] LABS: CONDITION 1; LH ANALYZER COMMENTS 1
[2016-04-13 08:36] LABS: POTASSIUM 3.7 mmol/L (3.5-5.1)
[2016-04-13 08:39] LABS: CALCIUM 8.5 mg/dl (8.4-10.2); CREATININE 0.83 mg/dl (0.44-1.00)
[2016-04-13] MEDS: predniSONE 5 MG TAB PO SCH ×2 (09:00→15:23)
[2016-04-13] MEDS: HYDROXYCHLOROQUINE 200 MG TAB PO SCH ×2 (09:00→15:24)
[2016-04-13] MEDS: ASPIRIN (EC) 325 MG TAB PO SCH (09:00)
[2016-04-13] MEDS: METOPROLOL 25 MG TAB PO SCH ×3 (09:00→21:10)
[2016-04-13] MEDS: SOD CHLORIDE 0.9% 1,000 ML IV SCH ×2 (09:12→17:32)
[2016-04-13] MEDS ORDERED: REGADENOSON 0.4 MG/5 ML SYG ONE (12:23)
--- NOTE | 2016-04-13 14:17 | PN ---
Date/Time of Note Date/Time of Note DATE: 04/13/16 TIME: 14:16 Assessment/Plan VTE Prophylaxis VTE Prophylaxis Intervention: other (xarelto) Lines/Catheters IV Catheter Type (from Nrsg): PICC Line Central line still needed: Yes Urinary Cath still in place: No Assessment/Plan Assessment/Plan 1.Chest pain, negative stress test result, chest wall pain from cough 2. Acute bronchitis, still with SOB, on levaquin and vanco 3. Systemic inflammatory response syndrome, with leukocytosis and tachycardia. 4. History of lupus. 5. Lactic acidosis. 6. 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 7. Chronic pain syndrome Subjective 24 Hr Interval Summary Free Text/Dictation still cough Exam/Review of Systems Vital Signs Vitals Vital Signs Date Time Temp Pulse Resp B/P Pulse Ox O2 Delivery O2 Flow Rate FiO2 04/13/16 11:52 98.0 80 20 144/88 96 04/12/16 07:28 Room Air 04/11/16 20:59 21 Intake and Output 04/12/16 04/12/16 04/13/16 15:00 23:00 07:00 Intake Total 1800 ml 1600 ml Balance 1800 ml 1600 ml Exam Constitutional: alert, oriented, well developed Psych: nl mood/affect, no complaints Head: atraumatic, normocephalic Eyes: EOMI, nl conjunctiva, nl lids, nl sclera ENMT: nl external ears & nose, nl lips & teeth, nl nasal mucosa & septum Neck: non-tender, supple Respiratory: crackles/rales, normal air movement Cardiovascular: nl pulses, regular rate and rhythm, No S3, No S4, No bruits, No diastolic murmur, No edema, No gallop, No irregular rhythm, No jugular venous distention (JVD), No murmurs/extra sounds, No rub, No systolic murmur Gastrointestinal: nl liver, spleen, non-tender, soft, No ascites, No bowel sounds, No distended, No firm, No hepatomegaly, No mass , No rebound or guarding, No splenomegaly, No surgical scars, No tender Musculoskeletal: nl extremities to inspection Extremities: normal pulses 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, nl mental status, nl speech, nl strength Skin: nl turgor, rash or lesions Lymph: nl lymph nodes Results Result Diagram: 04/13/16 0520 04/13/16 0520 Results 24 hrs Laboratory Tests Test 04/13/16 05:20 Anion Gap 15 Basophils # 0.0 Basophils % 0.4 Blood Morphology Comment Blood Urea Nitrogen 10 Calcium Level 8.5 Carbon Dioxide Level 24 Chloride Level 108 Cholesterol Level 184 Cholesterol/HDL Ratio 4.7 Creatinine 0.83 Eosinophils # 0.1 Eosinophils % 1.1 Glucose Level 71 HDL Cholesterol 39 Hematocrit 26.6 L Hemoglobin 8.7 L LDL Cholesterol, Calculated 105 Lymphocytes # 1.7 Lymphocytes % 18.9 Mean Corpuscular Hemoglobin 29.7 Mean Corpuscular Hemoglobin Concent 32.8 Mean Corpuscular Volume 90.6 Mean Platelet Volume 7.9 Monocytes # 0.6 Monocytes % 7.1 Neutrophils # 6.6 Neutrophils % 72.5 Nucleated Red Blood Cells # 0.0 Nucleated Red Blood Cells % 0.0 Platelet Count 222 # Potassium Level 3.7 Red Blood Count 2.93 L Red Cell Distribution Width 21.0 H Sodium Level 143 Triglycerides Level 201 H Vancomycin Level Trough 20.9 *H White Blood Count 9.2 Medications Medications Current Medications Ondansetron HCl (Zofran Inj) 4 mg Q6H PRN IV NAUSEA AND/OR VOMITING; Start at 20:00 Acetaminophen (Tylenol Tab) 650 mg Q6H PRN PO PAIN LEVEL 1-3 OR FEVER; Start at 20:00 Acetaminophen/ Hydrocodone Bitart ([place] (5/325)) 1 tab Q6H PRN PO MODERATE PAIN LEVEL 4-6; Start 04/10/16 at 20:00 Morphine Sulfate (morphine) 2 mg Q4H PRN IV SEVERE PAIN LEVEL 7-10 Last administered on 04/13/16 09:38; Admin Dose 2 MG; Start 04/10/16 at 20:00 Docusate Sodium (Colace) 100 mg Q12H PRN PO CONSTIPATION; Start 04/10/16 at 20: 00 Magnesium Hydroxide (Milk Of Mag) 30 ml DAILY PRN PO CONSTIPATION; Start at 20:00 Sodium Biphosphate/ Sodium Phosphate (Fleet Enema) 133 ml DAILY PRN [place] CONSTIPATION; Start 04/10/16 at 20:00 Pantoprazole (Protonix Tab) 40 mg DAILY@06 PO Last administered on 04/12/16 05 :01; Admin Dose 40 MG; Start 04/11/16 at 06:00 Lorazepam 0.5 mg 0.5 mg Q6H PRN IV ANXIETY; Start 04/10/16 at 20:00 Sodium Chloride (NS) 1,000 ml @ 100 mls/hr Q10H IV Last administered on 09:12; Admin Dose 100 MLS/HR; Start 04/10/16 at 19:41 Hydralazine HCl (Apresoline) 10 mg Q6H PRN IV ELEVATED BLOOD PRESSURE; Start at 20:00 Clonidine (Catapres) 0.1 mg Q6H PRN PO ELEVATED BLOOD PRESSURE Last administered on 04/12/16 08:49; Admin Dose 0.1 MG; Start 04/10/16 at 20:00 Nitroglycerin (Nitroglycerin (Sl Tab) 0.4 Mg) 1 tab Q5M PRN SL ANGINA; Start at 20:00 Aspirin (Ecotrin) 325 mg DAILY PO ; Start 04/11/16 at 09:00 Hydromorphone HCl (Dilaudid) 2 mg Q4 PRN PO PAIN Last administered on 18:23; Admin Dose 2 MG; Start 04/10/16 at 20:00 Hydroxychloroquine Sulfate (Plaquenil) 400 mg DAILY PO Last administered on 08:49; Admin Dose 400 MG; Start 04/11/16 at 09:00 Prednisone (Prednisone) 5 mg DAILY PO Last administered on 04/12/16 08:49; Admin Dose 5 MG; Start 04/11/16 at 09:00 Zolpidem Tartrate (Ambien) 10 mg QHS PRN PO INSOMNIA; Start 04/10/16 at 20:00 Diphenhydramine HCl (Benadryl) 50 mg Q4 PRN IV ITCHING Last administered on 09:38; Admin Dose 50 MG; Start 04/10/16 at 23:00 Phenol 1 lozenge 1 lozenge Q1H PRN MT COUGH Last administered on 04/12/16 05: 01; Admin Dose 1 LOZENGE; Start 04/11/16 at 11:30 Levofloxacin/ Dextrose (Levaquin 750 Mg/ D5W 150 ml (Pmx)) 150 ml @ 100 mls/hr Q24H IVPB Last administered on 04/12/16 17:04; Admin Dose 100 MLS/HR; Start at 17:00 Metoprolol Tartrate 25 mg 25 mg BID PO Last administered on 04/12/16 21:36; Admin Dose 25 MG; Start 04/12/16 at 21:00 Vancomycin HCl/ Sodium Chloride (Vancocin/NS) 250 ml @ 83.333 mls/ hr Q12H IVPB ; Start 04/13/16 at 13:00 JILLIAN COLORADO MD Apr 13, 2016 14:17
[2016-04-13] MEDS: VANCOMYCIN 1.25 GM in SOD CHLORIDE 0.9% 250 ML IVPB SCH (14:56)
--- NOTE | 2016-04-13 15:38 | RADRPT ---
PROCEDURE: Lexiscan myocardial perfusion study CLINICAL INDICATION: 35 -year-old patient complaining of chest pain. TECHNIQUE: Lexiscan 0.4 mg intravenously separate acquisition gated myocardial perfusion SPECT usi ng Tc 99m Myoview 31.9 mCi intravenously at stress and Tc-99m Myoview, 10.8 mCi intravenously at res t was performed using the rest/stress sequence. Poststress Myoview SPECT images were obtained in th e supine position. COMPARISON: No prior studies. FINDINGS: Perfusion images reveal mild nonreversible reduction in perfusion is seen in the anterior and inferi or kelly, which as likely related to soft tissue attenuation. Lexiscan post stress gated SPECT images demonstrate mild to moderate hypokinesis of the left ventric le. IMPRESSION: 1. No evidence of stress-induced ischemia. 2. Mild to moderate hypokinesis of the left ventricle. 3. The left ventricle ejection fraction at stress is 38%. A call report was made to Dr. Russell at 03:35 p.m. on April 13, 2016. RPTAT: HH .Lala Pinon MD, Date Time Electronically viewed and signed by .Lala Pinon MD, on 04/13/2016 15:38 .L/
--- NOTE | 2016-04-13 16:40 | CONS ---
Date/Time of Note Date/Time of Note DATE: 04/13/16 TIME: 16:34 Assessment/Plan Assessment/Plan Chief Complaint/Hosp Course IMPRESSION: 1. Chest pain, somewhat atypical symptomatology for cardiac etiology at this time. Assess for acute coronary syndrome.-negative troponini x3 2. Abnormal electrocardiogram with nonspecific ST and T abnormalities, assess for acute coronary syndrome. 3. History of deep venous thrombosis, status post inferior vena cava filter, on systemic anticoagulation with a negative CT, CTA. 4. Anemia. 5. Hypernatremia. 6. Leukocytosis, improving. 7.HTN Recc: -Tele -serial ecg's -Increase BB to improve BP -Lexiscan stress test today -Continue xarelto/baby asa -Continue abx's -Contineu steroids Problems: Consultation Date/Type/Reason Admit Date/Time Apr 10, 2016 at 19:06 Initial Consult Date 04/12/2016 Type of Consultation: Cardiology Reason for Consultation Chest pain Referring Provider: JILLIAN COLORADO MD Exam/Review of Systems Vital Signs Vitals Vital Signs Date Time Temp Pulse Resp B/P Pulse Ox O2 Delivery O2 Flow Rate FiO2 04/13/16 16:16 98.4 93 20 139/77 98 04/12/16 07:28 Room Air 04/11/16 20:59 21 Intake and Output 04/12/16 04/12/16 04/13/16 15:00 23:00 07:00 Intake Total 1800 ml 1600 ml Balance 1800 ml 1600 ml Exam Review of Systems: CONSTITUTIONAL: No fevers, chills. PULMONARY: No sob CARDIOVASCULAR:intermittent chest pain GASTROINTESTINAL: No nausea/vomiting. GENITOURINARY: No hematuria/dysuria. MUSCULOSKELETAL: No myagias/arthalgias. PSYCHIATRIC: The patient denies depression. NEUROLOGIC: No weakness Constitutional: alert, oriented Psych: no complaints Head: normocephalic ENMT: mucosa pink and moist Neck: jvd (9 cm water), supple Respiratory: diminished breath sounds (at bases/B) Cardiovascular: regular rate and rhythm Gastrointestinal: non-tender, soft Extremities: edema Neurological: other (No focal mdeficits) Results Result Diagram: 04/13/16 0520 04/13/16 0520 Results 24 hrs Laboratory Tests Test 04/13/16 05:20 Anion Gap 15 Basophils # 0.0 Basophils % 0.4 Blood Morphology Comment Blood Urea Nitrogen 10 Calcium Level 8.5 Carbon Dioxide Level 24 Chloride Level 108 Cholesterol Level 184 Cholesterol/HDL Ratio 4.7 Creatinine 0.83 Eosinophils # 0.1 Eosinophils % 1.1 Glucose Level 71 HDL Cholesterol 39 Hematocrit 26.6 L Hemoglobin 8.7 L LDL Cholesterol, Calculated 105 Lymphocytes # 1.7 Lymphocytes % 18.9 Mean Corpuscular Hemoglobin 29.7 Mean Corpuscular Hemoglobin Concent 32.8 Mean Corpuscular Volume 90.6 Mean Platelet Volume 7.9 Monocytes # 0.6 Monocytes % 7.1 Neutrophils # 6.6 Neutrophils % 72.5 Nucleated Red Blood Cells # 0.0 Nucleated Red Blood Cells % 0.0 Platelet Count 222 # Potassium Level 3.7 Red Blood Count 2.93 L Red Cell Distribution Width 21.0 H Sodium Level 143 Triglycerides Level 201 H Vancomycin Level Trough 20.9 *H White Blood Count 9.2 Medications Medications Current Medications Ondansetron HCl (Zofran Inj) 4 mg Q6H PRN IV NAUSEA AND/OR VOMITING; Start at 20:00 Acetaminophen (Tylenol Tab) 650 mg Q6H PRN PO PAIN LEVEL 1-3 OR FEVER; Start at 20:00 Acetaminophen/ Hydrocodone Bitart ([place] (5/325)) 1 tab Q6H PRN PO MODERATE PAIN LEVEL 4-6; Start 04/10/16 at 20:00 Morphine Sulfate (morphine) 2 mg Q4H PRN IV SEVERE PAIN LEVEL 7-10 Last administered on 04/13/16 14:52; Admin Dose 2 MG; Start 04/10/16 at 20:00 Docusate Sodium (Colace) 100 mg Q12H PRN PO CONSTIPATION; Start 04/10/16 at 20: 00 Magnesium Hydroxide (Milk Of Mag) 30 ml DAILY PRN PO CONSTIPATION; Start at 20:00 Sodium Biphosphate/ Sodium Phosphate (Fleet Enema) 133 ml DAILY PRN [place] CONSTIPATION; Start 04/10/16 at 20:00 Pantoprazole (Protonix Tab) 40 mg DAILY@06 PO Last administered on 04/12/16 05 :01; Admin Dose 40 MG; Start 04/11/16 at 06:00 Lorazepam 0.5 mg 0.5 mg Q6H PRN IV ANXIETY; Start 04/10/16 at 20:00 Sodium Chloride (NS) 1,000 ml @ 100 mls/hr Q10H IV Last administered on 09:12; Admin Dose 100 MLS/HR; Start 04/10/16 at 19:41 Hydralazine HCl (Apresoline) 10 mg Q6H PRN IV ELEVATED BLOOD PRESSURE; Start at 20:00 Clonidine (Catapres) 0.1 mg Q6H PRN PO ELEVATED BLOOD PRESSURE Last administered on 04/12/16 08:49; Admin Dose 0.1 MG; Start 04/10/16 at 20:00 Nitroglycerin (Nitroglycerin (Sl Tab) 0.4 Mg) 1 tab Q5M PRN SL ANGINA; Start at 20:00 Aspirin (Ecotrin) 325 mg DAILY PO ; Start 04/11/16 at 09:00 Hydromorphone HCl (Dilaudid) 2 mg Q4 PRN PO PAIN Last administered on 18:23; Admin Dose 2 MG; Start 04/10/16 at 20:00 Hydroxychloroquine Sulfate (Plaquenil) 400 mg DAILY PO Last administered on 15:24; Admin Dose 400 MG; Start 04/11/16 at 09:00 Prednisone (Prednisone) 5 mg DAILY PO Last administered on 04/13/16 15:23; Admin Dose 5 MG; Start 04/11/16 at 09:00 Zolpidem Tartrate (Ambien) 10 mg QHS PRN PO INSOMNIA; Start 04/10/16 at 20:00 Diphenhydramine HCl (Benadryl) 50 mg Q4 PRN IV ITCHING Last administered on 14:51; Admin Dose 50 MG; Start 04/10/16 at 23:00 Phenol 1 lozenge 1 lozenge Q1H PRN MT COUGH Last administered on 04/12/16 05: 01; Admin Dose 1 LOZENGE; Start 04/11/16 at 11:30 Levofloxacin/ Dextrose (Levaquin 750 Mg/ D5W 150 ml (Pmx)) 150 ml @ 100 mls/hr Q24H IVPB Last administered on 04/12/16 17:04; Admin Dose 100 MLS/HR; Start at 17:00 Metoprolol Tartrate 25 mg 25 mg BID PO Last administered on 04/13/16 15:24; Admin Dose 25 MG; Start 04/12/16 at 21:00 Vancomycin HCl/ Sodium Chloride (Vancocin/NS) 250 ml @ 83.333 mls/ hr Q12H IVPB Last administered on 04/13/16 14:56; Admin Dose 83.333 MLS/HR; Start at 13:00 ILAN PAINTING Apr 13, 2016 16:40
[2016-04-13] MEDS: LEVOFLOXACIN 750MG/D5W (PMX) 150 ML IVPB SCH (17:49)
[2016-04-13] MEDS: RIVAROXABAN 20 MG TABLET PO SCH (17:49)
--- NOTE | 2016-04-13 23:06 | CARRPT ---
DATE OF PROCEDURE: 04/13/2016 PROCEDURE: Lexiscan Cardiolite stress test, electrocardiogram portion. REASON FOR STRESS TESTING: Chest pain, assess for ischemia. BASELINE VITAL SIGNS AND ELECTROCARDIOGRAM: Pulse 79, blood pressure 163/105. Electrocardiogram wa s normal sinus rhythm, rate of 79, normal axis, normal intervals, lateral T-wave inversion. PROCEDURE: The patient underwent standard Lexiscan infusion protocol over 10 seconds followed by ra diolabeled tracer. The patient's test was stopped due to completion of protocol. Maximal achieved blood pressure during the test 161/103. Maximal achieved heart rate during the test 114. ELECTROCARDIOGRAM FINDINGS: The patient did not develop any new Lexiscan-induced ST or T-wave b[place] es from baseline abnormalities. No documented PVCs, rare PAC. SYMPTOMS: The patient had complaints of chest pain, stomach ache during stress test that resolved i n recovery. IMPRESSION: 1. No Lexiscan-induced ST or T-wave changes from baseline abnormalities diagnostic of cardiac ische mary. 2. Positive complaints of chest pain during stress test, resolved in recovery. 3. No documented premature ventricular contractions during stress test. 4. Report of nuclear images to follow in separate dictation. Dictated By: ILAN MACDONALD/OLENA Conf#: [id number] DID#: [id number] CC: KOMAL CHARLES;*EndCC*
[2016-04-14] VITALS (10 sets, daily range): BP systolic 135–176; BP diastolic 83–104; PULSE 84–90; RESP 18–20
[2016-04-14] MEDS: VANCOMYCIN 1.25 GM in SOD CHLORIDE 0.9% 250 ML IVPB SCH ×2 (01:00→13:57)
[2016-04-14] MEDS: DIPHENHYDRAMINE 50 MG INJ IV PRN ×5 (03:14→20:20)
[2016-04-14] MEDS: SOD CHLORIDE 0.9% 1,000 ML IV SCH ×3 (03:14→23:41)
[2016-04-14] MEDS: morphine 2 MG INJ IV PRN ×5 (03:15→20:19)
[2016-04-14] MEDS ORDERED: FLUCONAZOLE 200 MG TAB PO ONE (04:00)
[2016-04-14] MEDS: PANTOPRAZOLE (EC) 40 MG TAB PO SCH (05:40)
[2016-04-14] MEDS ORDERED: ALTEPLASE (CATHFLO) 2 MG INJ CATHETER ONE (08:30)
[2016-04-14] MEDS: predniSONE 5 MG TAB PO SCH (08:51)
[2016-04-14] MEDS: METOPROLOL 25 MG TAB PO SCH ×2 (08:52→20:26)
[2016-04-14] MEDS: HYDROXYCHLOROQUINE 200 MG TAB PO SCH (08:52)
[2016-04-14 12:34] LABS: POTASSIUM 3.5 mmol/L (3.5-5.1)
[2016-04-14 12:37] LABS: BASOPHILS % 0.4 % (0.0-2.0); CREATININE 0.83 mg/dl (0.44-1.00); EOSINOPHILS # 0.1 10^3/ul (0.0-0.5); EOSINOPHILS % 1.6 % (0.0-7.0); HEMATOCRIT 31.8 % (37.0-47.0); HEMOGLOBIN 10.2 g/dl (12.0-16.0); LYMPHOCYTES # 1.4 10^3/ul (0.8-2.9); LYMPHOCYTES % 16.6 % (15.0-51.0); MEAN CORPUSCULAR HEMOGLOBIN 28.9 pg (29.0-33.0); MEAN CORPUSCULAR HGB CONC 32.2 g/dl (32.0-37.0); MEAN CORPUSCULAR VOLUME 89.9 fl (82.0-101.0); MEAN PLATELET VOLUME 7.6 fl (7.4-10.4); MONOCYTE # 0.5 10^3/ul (0.3-0.9); MONOCYTES % 6.1 % (0.0-11.0); NEUTROPHIL # 6.6 10^3/ul (1.6-7.5); NEUTROPHILS % 75.3 % (39.0-77.0); PLATELET COUNT 228 10^3/UL (140-440); RED BLOOD COUNT 3.53 10^6/ul (4.20-5.40); RED CELL DISTRIBUTION WIDTH 20.6 % (11.5-14.5); UNCORRECTED WBC 8.7 10^3/ul (4.8-10.8); WHITE BLOOD COUNT 8.7 10^3/ul (4.8-10.8)
[2016-04-14 12:38] LABS: CALCIUM 8.2 mg/dl (8.4-10.2)
[2016-04-14 12:49] LABS: CONDITION 1; LH ANALYZER COMMENTS 1
--- NOTE | 2016-04-14 14:08 | CONS ---
Date/Time of Note Date/Time of Note DATE: 04/14/16 TIME: 14:05 Assessment/Plan Assessment/Plan Additional Assessment/Plan 1. Chest pain, somewhat atypical symptomatology for cardiac etiology at this time. Assess for acute coronary syndrome.-negative troponini x3 - stress test with EF 38%, no rev ischemia noted 2. Abnormal electrocardiogram with nonspecific ST and T abnormalities, assess for acute coronary syndrome. No rev ischemia by stress test 3. History of deep venous thrombosis, status post inferior vena cava filter, on systemic anticoagulation with a negative CT, CTA. 4. Anemia- H/H stable - no obvious bleed 5. Hypernatremia. 6. Leukocytosis, improving- con't Rx 7.HTN Consultation Date/Type/Reason Admit Date/Time Apr 10, 2016 at 19:06 Initial Consult Date Type of Consultation: Cardiology Referring Provider: JILLIAN COLORADO MD 24 HR Interval Summary Free Text/Dictation Stress test with EF 38%, no rev ischemia noted - no chest pain noted now. ROS: No fever, no chills, no nausea, no vomiting, no diarrhea/constipation No recent weight changes No chest pain, no PND, no orthopnea No dizziness, blurred vision No thirst, no heat or cold intolerance Exam/Review of Systems Vital Signs Vitals Vital Signs Date Time Temp Pulse Resp B/P Pulse Ox O2 Delivery O2 Flow Rate FiO2 04/14/16 12:41 88 04/14/16 11:59 98.3 20 135/92 98 04/12/16 07:28 Room Air 04/11/16 20:59 21 Intake and Output 04/13/16 04/13/16 04/14/16 15:00 23:00 07:00 Intake Total 1650 ml 1750 ml Balance 1650 ml 1750 ml Exam General: WN/WD/NAD, AOx 2-3 HEENT: Unicetric/atraumatic/EOMI (follow commands) NECK: JVD elevated, no thyromegaly Lymph: no lymphadenopathy HEART: regular with no S3, II/ systolic murmur at apex LUNGS: Coarse sounds ABD: soft, NT, ND, +BS : Intact Neuro: non focal SKIN: chronic changes EXT: trace edema Results Result Diagram: 04/14/16 1205 04/14/16 1205 Results 24 hrs Laboratory Tests Test 04/14/16 12:05 Anion Gap 13 Basophils # 0.0 Basophils % 0.4 Blood Morphology Comment Blood Urea Nitrogen 11 Calcium Level 8.2 L Carbon Dioxide Level 26 Chloride Level 105 Creatinine 0.83 Eosinophils # 0.1 Eosinophils % 1.6 Glucose Level 86 Hematocrit 31.8 L Hemoglobin 10.2 L Lymphocytes # 1.4 Lymphocytes % 16.6 Mean Corpuscular Hemoglobin 28.9 L Mean Corpuscular Hemoglobin Concent 32.2 Mean Corpuscular Volume 89.9 Mean Platelet Volume 7.6 Monocytes # 0.5 Monocytes % 6.1 Neutrophils # 6.6 Neutrophils % 75.3 Nucleated Red Blood Cells # 0.0 Nucleated Red Blood Cells % 0.0 Platelet Count 228 Potassium Level 3.5 Red Blood Count 3.53 #L Red Cell Distribution Width 20.6 H Sodium Level 140 White Blood Count 8.7 Medications Medications Current Medications Ondansetron HCl (Zofran Inj) 4 mg Q6H PRN IV NAUSEA AND/OR VOMITING; Start at 20:00 Acetaminophen (Tylenol Tab) 650 mg Q6H PRN PO PAIN LEVEL 1-3 OR FEVER; Start at 20:00 Acetaminophen/ Hydrocodone Bitart ([place] (5/325)) 1 tab Q6H PRN PO MODERATE PAIN LEVEL 4-6; Start 04/10/16 at 20:00 Morphine Sulfate (morphine) 2 mg Q4H PRN IV SEVERE PAIN LEVEL 7-10 Last administered on 04/14/16 12:03; Admin Dose 2 MG; Start 04/10/16 at 20:00 Docusate Sodium (Colace) 100 mg Q12H PRN PO CONSTIPATION; Start 04/10/16 at 20: 00 Magnesium Hydroxide (Milk Of Mag) 30 ml DAILY PRN PO CONSTIPATION; Start at 20:00 Sodium Biphosphate/ Sodium Phosphate (Fleet Enema) 133 ml DAILY PRN [place] CONSTIPATION; Start 04/10/16 at 20:00 Pantoprazole (Protonix Tab) 40 mg DAILY@06 PO Last administered on 04/14/16 05 :40; Admin Dose 40 MG; Start 04/11/16 at 06:00 Lorazepam 0.5 mg 0.5 mg Q6H PRN IV ANXIETY; Start 04/10/16 at 20:00 Sodium Chloride (NS) 1,000 ml @ 100 mls/hr Q10H IV Last administered on 03:14; Admin Dose 100 MLS/HR; Start 04/10/16 at 19:41 Hydralazine HCl (Apresoline) 10 mg Q6H PRN IV ELEVATED BLOOD PRESSURE; Start at 20:00 Clonidine (Catapres) 0.1 mg Q6H PRN PO ELEVATED BLOOD PRESSURE Last administered on 04/12/16 08:49; Admin Dose 0.1 MG; Start 04/10/16 at 20:00 Nitroglycerin (Nitroglycerin (Sl Tab) 0.4 Mg) 1 tab Q5M PRN SL ANGINA; Start at 20:00 Hydromorphone HCl (Dilaudid) 2 mg Q4 PRN PO PAIN Last administered on 18:23; Admin Dose 2 MG; Start 04/10/16 at 20:00 Hydroxychloroquine Sulfate (Plaquenil) 400 mg DAILY PO Last administered on 08:52; Admin Dose 400 MG; Start 04/11/16 at 09:00 Prednisone (Prednisone) 5 mg DAILY PO Last administered on 04/14/16 08:51; Admin Dose 5 MG; Start 04/11/16 at 09:00 Zolpidem Tartrate (Ambien) 10 mg QHS PRN PO INSOMNIA; Start 04/10/16 at 20:00 Diphenhydramine HCl (Benadryl) 50 mg Q4 PRN IV ITCHING Last administered on 12:03; Admin Dose 50 MG; Start 04/10/16 at 23:00 Phenol (Cepastat Lozenge) 1 lozenge Q1H PRN MT COUGH Last administered on 05:01; Admin Dose 1 LOZENGE; Start 04/11/16 at 11:30 Metoprolol Tartrate 25 mg 25 mg BID PO Last administered on 04/14/16 08:52; Admin Dose 25 MG; Start 04/12/16 at 21:00 Vancomycin HCl/ Sodium Chloride (Vancocin/NS) 250 ml @ 83.333 mls/ hr Q12H IVPB Last administered on 04/14/16 13:57; Admin Dose 83.333 MLS/HR; Start 1/ 24/17 at 13:00 Levofloxacin (Levaquin) 750 mg DAILY@06 PO ; Start 04/14/16 at 17:00 TASHA HUGHES MD Apr 14, 2016 14:08
--- NOTE | 2016-04-14 14:49 | RADRPT ---
Vent Rate: 0 bpm RR Interval: 0 msec [place] Interval: 0 msec QRS Duration: 0 msec QT Interval: 0 msec QTC Interval: 0 msec P-R-T [place]: 0 - 0 - 0 degrees Electronically Signed By: Dany Singleton [id number]
--- NOTE | 2016-04-14 15:15 | PN ---
Date/Time of Note Date/Time of Note DATE: 04/14/16 TIME: 15:12 Assessment/Plan VTE Prophylaxis VTE Prophylaxis Intervention: other (xarelto) Lines/Catheters IV Catheter Type (from Nrsg): PICC Line Central line still needed: Yes Urinary Cath still in place: No Assessment/Plan Assessment/Plan 1.Chest pain, chest wall pain from cough, negative stress test result 2. Acute bronchitis, still with SOB, on levaquin and vanco 3. Systemic inflammatory response syndrome, with leukocytosis and tachycardia. 4. History of lupus. 5. Lactic acidosis. 6. 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 7. Chronic pain syndrome Subjective 24 Hr Interval Summary Free Text/Dictation still cough with chest pain. Talked to her about discharge she states she is still weak and cough Exam/Review of Systems Vital Signs Vitals Vital Signs Date Time Temp Pulse Resp B/P Pulse Ox O2 Delivery O2 Flow Rate FiO2 04/14/16 12:41 88 04/14/16 11:59 98.3 20 135/92 98 04/12/16 07:28 Room Air 04/11/16 20:59 21 Intake and Output 04/13/16 04/13/16 04/14/16 15:00 23:00 07:00 Intake Total 1650 ml 1750 ml Balance 1650 ml 1750 ml Exam Constitutional: alert, oriented, well developed Psych: nl mood/affect, no complaints Head: atraumatic, normocephalic Eyes: EOMI, PERRL, nl conjunctiva, nl sclera ENMT: nl external ears & nose, nl lips & teeth, nl nasal mucosa & septum Neck: non-tender, supple Respiratory: congested cough, other (some rhonchi) Cardiovascular: nl pulses, regular rate and rhythm, No S3, No S4, No bruits, No diastolic murmur, No edema, No gallop, No irregular rhythm, No jugular venous distention (JVD), No murmurs/extra sounds, No rub, No systolic murmur Gastrointestinal: nl liver, spleen, non-tender, soft, No ascites, No bowel sounds, No distended, No firm, No hepatomegaly, No mass , No rebound or guarding, No splenomegaly, No surgical scars, No tender Musculoskeletal: nl extremities to inspection Extremities: normal pulses, No calf tenderness, No clubbing, No cyanosis, No edema, No palpable cord, No pitting pedal edema, No tenderness Neurological: [employer] II-XII intact, nl mental status, nl speech, nl strength Skin: nl turgor, rash or lesions Lymph: nl lymph nodes Results Result Diagram: 04/14/16 1205 04/14/16 1205 Results 24 hrs Laboratory Tests Test 04/14/16 12:05 Anion Gap 13 Basophils # 0.0 Basophils % 0.4 Blood Morphology Comment Blood Urea Nitrogen 11 Calcium Level 8.2 L Carbon Dioxide Level 26 Chloride Level 105 Creatinine 0.83 Eosinophils # 0.1 Eosinophils % 1.6 Glucose Level 86 Hematocrit 31.8 L Hemoglobin 10.2 L Lymphocytes # 1.4 Lymphocytes % 16.6 Mean Corpuscular Hemoglobin 28.9 L Mean Corpuscular Hemoglobin Concent 32.2 Mean Corpuscular Volume 89.9 Mean Platelet Volume 7.6 Monocytes # 0.5 Monocytes % 6.1 Neutrophils # 6.6 Neutrophils % 75.3 Nucleated Red Blood Cells # 0.0 Nucleated Red Blood Cells % 0.0 Platelet Count 228 Potassium Level 3.5 Red Blood Count 3.53 #L Red Cell Distribution Width 20.6 H Sodium Level 140 White Blood Count 8.7 Medications Medications Current Medications Ondansetron HCl (Zofran Inj) 4 mg Q6H PRN IV NAUSEA AND/OR VOMITING; Start at 20:00 Acetaminophen (Tylenol Tab) 650 mg Q6H PRN PO PAIN LEVEL 1-3 OR FEVER; Start at 20:00 Acetaminophen/ Hydrocodone Bitart ([place] (5/325)) 1 tab Q6H PRN PO MODERATE PAIN LEVEL 4-6; Start 04/10/16 at 20:00 Morphine Sulfate (morphine) 2 mg Q4H PRN IV SEVERE PAIN LEVEL 7-10 Last administered on 04/14/16t 12:03; Admin Dose 2 MG; Start 04/10/16 at 20:00 Docusate Sodium (Colace) 100 mg Q12H PRN PO CONSTIPATION; Start 04/10/16 at 20: 00 Magnesium Hydroxide (Milk Of Mag) 30 ml DAILY PRN PO CONSTIPATION; Start at 20:00 Sodium Biphosphate/ Sodium Phosphate (Fleet Enema) 133 ml DAILY PRN [place] CONSTIPATION; Start 04/10/16 at 20:00 Pantoprazole (Protonix Tab) 40 mg DAILY@06 PO Last administered on 04/14/16 05 :40; Admin Dose 40 MG; Start 04/11/16 at 06:00 Lorazepam 0.5 mg 0.5 mg Q6H PRN IV ANXIETY; Start 04/10/16 at 20:00 Sodium Chloride (NS) 1,000 ml @ 100 mls/hr Q10H IV Last administered on 03:14; Admin Dose 100 MLS/HR; Start 04/10/16 at 19:41 Hydralazine HCl (Apresoline) 10 mg Q6H PRN IV ELEVATED BLOOD PRESSURE; Start at 20:00 Clonidine (Catapres) 0.1 mg Q6H PRN PO ELEVATED BLOOD PRESSURE Last administered on 04/12/16 08:49; Admin Dose 0.1 MG; Start 04/10/16 at 20:00 Nitroglycerin (Nitroglycerin (Sl Tab) 0.4 Mg) 1 tab Q5M PRN SL ANGINA; Start at 20:00 Hydromorphone HCl (Dilaudid) 2 mg Q4 PRN PO PAIN Last administered on 18:23; Admin Dose 2 MG; Start 04/10/16 at 20:00 Hydroxychloroquine Sulfate (Plaquenil) 400 mg DAILY PO Last administered on 08:52; Admin Dose 400 MG; Start 04/11/16 at 09:00 Prednisone (Prednisone) 5 mg DAILY PO Last administered on 04/14/16 08:51; Admin Dose 5 MG; Start 04/11/16 at 09:00 Zolpidem Tartrate (Ambien) 10 mg QHS PRN PO INSOMNIA; Start 04/10/16 at 20:00 Diphenhydramine HCl (Benadryl) 50 mg Q4 PRN IV ITCHING Last administered on 12:03; Admin Dose 50 MG; Start 04/10/16 at 23:00 Phenol (Cepastat Lozenge) 1 lozenge Q1H PRN [place] COUGH Last administered on 05:01; Admin Dose 1 LOZENGE; Start 04/11/16 at 11:30 Metoprolol Tartrate 25 mg 25 mg BID PO Last administered on 04/14/16 08:52; Admin Dose 25 MG; Start 04/12/16 at 21:00 Vancomycin HCl/ Sodium Chloride (Vancocin/NS) 250 ml @ 83.333 mls/ hr Q12H IVPB Last administered on 04/14/16 13:57; Admin Dose 83.333 MLS/HR; Start at 13:00 Levofloxacin (Levaquin) 750 mg DAILY@06 PO ; Start 04/14/16 at 17:00 JILLIAN COLORADO MD Apr 14, 2016 15:15
[2016-04-14] MEDS: LEVOFLOXACIN 750 MG TABLET PO SCH (17:27)
[2016-04-14] MEDS: RIVAROXABAN 20 MG TABLET PO SCH (17:27)
[2016-04-15] MEDS: DIPHENHYDRAMINE 50 MG INJ IV PRN ×5 (00:37→16:39)
[2016-04-15] MEDS: morphine 2 MG INJ IV PRN ×5 (00:37→16:40)
[2016-04-15] MEDS ORDERED: VANCOMYCIN 1 GM in NS 250 ML IVPB SCH (05:00)
[2016-04-15] MEDS: PANTOPRAZOLE (EC) 40 MG TAB PO SCH (05:31)
[2016-04-15] MEDS: LEVOFLOXACIN 750 MG TABLET PO SCH (05:31)
[2016-04-15 08:21] VITALS: BP 139/92; RESP 18
[2016-04-15] MEDS: METOPROLOL 25 MG TAB PO SCH (08:48)
[2016-04-15] MEDS: predniSONE 5 MG TAB PO SCH (08:48)
[2016-04-15] MEDS: HYDROXYCHLOROQUINE 200 MG TAB PO SCH (08:48)
[2016-04-15 10:32] LABS: BASOPHILS % 0.4 % (0.0-2.0); EOSINOPHILS # 0.1 10^3/ul (0.0-0.5); EOSINOPHILS % 1.8 % (0.0-7.0); HEMATOCRIT 32.6 % (37.0-47.0); HEMOGLOBIN 10.8 g/dl (12.0-16.0); LYMPHOCYTES # 1.1 10^3/ul (0.8-2.9); LYMPHOCYTES % 15.2 % (15.0-51.0); MEAN CORPUSCULAR HGB CONC 33.2 g/dl (32.0-37.0); MEAN CORPUSCULAR VOLUME 90.4 fl (82.0-101.0); MEAN PLATELET VOLUME 7.8 fl (7.4-10.4); MONOCYTE # 0.3 10^3/ul (0.3-0.9); MONOCYTES % 4.7 % (0.0-11.0); NEUTROPHIL # 5.4 10^3/ul (1.6-7.5); NEUTROPHILS % 77.9 % (39.0-77.0); PLATELET COUNT 223 10^3/UL (140-440); RED BLOOD COUNT 3.61 10^6/ul (4.20-5.40); RED CELL DISTRIBUTION WIDTH 20.6 % (11.5-14.5); UNCORRECTED WBC 6.9 10^3/ul (4.8-10.8); WHITE BLOOD COUNT 6.9 10^3/ul (4.8-10.8)
[2016-04-15 10:34] LABS: CONDITION 1; LH ANALYZER COMMENTS 1
[2016-04-15 10:44] LABS: POTASSIUM 3.7 mmol/L (3.5-5.1)
[2016-04-15 10:47] LABS: CREATININE 0.89 mg/dl (0.44-1.00)
[2016-04-15 10:48] LABS: CALCIUM 8.6 mg/dl (8.4-10.2)
--- NOTE | 2016-04-15 11:07 | CONS ---
Date/Time of Note Date/Time of Note DATE: 04/15/16 TIME: 11:05 Assessment/Plan Assessment/Plan Additional Assessment/Plan 1. Chest pain, somewhat atypical symptomatology for cardiac etiology at this time. Assess for acute coronary syndrome.-negative troponini x3 - stress test with EF 38%, no rev ischemia noted - STABLE now. 2. Abnormal electrocardiogram with nonspecific ST and T abnormalities, assess for acute coronary syndrome. No rev ischemia by stress test 3. History of deep venous thrombosis, status post inferior vena cava filter, on systemic anticoagulation with a negative CT, CTA. 4. Anemia- H/H stable - no obvious bleed 5. Hypernatremia. 6. Leukocytosis, improving- con't Rx 7. HTN - well Rx - will adjust Rx as needed =- dispo plan in place Consultation Date/Type/Reason Admit Date/Time Apr 10, 2016 at 19:06 Type of Consultation: Cardiology Referring Provider: JILLIAN COLORADO MD 24 HR Interval Summary Free Text/Dictation NO acute change. BP stable. Dispo plan in place. ROS: No fever, no chills, no nausea, no vomiting, no diarrhea/constipation No recent weight changes No chest pain, no PND, no orthopnea No dizziness, blurred vision No thirst, no heat or cold intolerance Exam/Review of Systems Vital Signs Vitals Vital Signs Date Time Temp Pulse Resp B/P Pulse Ox O2 Delivery O2 Flow Rate FiO2 04/15/16 08:21 98.4 81 18 139/92 100 04/12/16 07:28 Room Air 04/11/16 20:59 21 Intake and Output 04/14/16 04/14/16 04/15/16 15:00 23:00 07:00 Intake Total 1450 ml 850 ml Balance 1450 ml 850 ml Exam General: WN/WD/NAD, AOx 3 HEENT: Unicetric/atraumatic/EOMI (follow commands) NECK: JVD elevated, no thyromegaly Lymph: no lymphadenopathy HEART: regular with no S3, II/ systolic murmur at apex LUNGS: Coarse sounds ABD: soft, NT, ND, +BS : Intact Neuro: non focal SKIN: chronic changes EXT: trace edema Results Result Diagram: 04/15/16 1005 04/15/16 1005 Results 24 hrs Laboratory Tests Test 04/14/16 12:05 04/15/16 00:45 04/15/16 10:05 Anion Gap 13 13 Basophils # 0.0 0.0 Basophils % 0.4 0.4 Blood Morphology Comment Blood Urea Nitrogen 11 Pending Calcium Level 8.2 L 8.6 Carbon Dioxide Level 26 26 Chloride Level 105 107 Creatinine 0.83 0.89 Eosinophils # 0.1 0.1 Eosinophils % 1.6 1.8 Glucose Level 86 96 Hematocrit 31.8 L 32.6 L Hemoglobin 10.2 L 10.8 L Lymphocytes # 1.4 1.1 Lymphocytes % 16.6 15.2 Mean Corpuscular Hemoglobin 28.9 L 30.0 Mean Corpuscular Hemoglobin Concent 32.2 33.2 Mean Corpuscular Volume 89.9 90.4 Mean Platelet Volume 7.6 7.8 Monocytes # 0.5 0.3 Monocytes % 6.1 4.7 Neutrophils # 6.6 5.4 Neutrophils % 75.3 77.9 H Nucleated Red Blood Cells # 0.0 0.0 Nucleated Red Blood Cells % 0.0 0.0 Platelet Count 228 223 Potassium Level 3.5 3.7 Red Blood Count 3.53 #L 3.61 L Red Cell Distribution Width 20.6 H 20.6 H Sodium Level 140 142 White Blood Count 8.7 6.9 # Vancomycin Level Trough 22.0 *H Medications Medications Current Medications Ondansetron HCl (Zofran Inj) 4 mg Q6H PRN IV NAUSEA AND/OR VOMITING; Start at 20:00 Acetaminophen (Tylenol Tab) 650 mg Q6H PRN PO PAIN LEVEL 1-3 OR FEVER; Start at 20:00 Acetaminophen/ Hydrocodone Bitart ([place] (5/325)) 1 tab Q6H PRN PO MODERATE PAIN LEVEL 4-6; Start 04/10/16 at 20:00 Morphine Sulfate (morphine) 2 mg Q4H PRN IV SEVERE PAIN LEVEL 7-10 Last administered on 04/15/16t 08:47; Admin Dose 2 MG; Start 04/10/16 at 20:00 Docusate Sodium (Colace) 100 mg Q12H PRN PO CONSTIPATION; Start 04/10/16 at 20: 00 Magnesium Hydroxide (Milk Of Mag) 30 ml DAILY PRN PO CONSTIPATION; Start at 20:00 Sodium Biphosphate/ Sodium Phosphate (Fleet Enema) 133 ml DAILY PRN [place] CONSTIPATION; Start 04/10/16 at 20:00 Pantoprazole (Protonix Tab) 40 mg DAILY@06 PO Last administered on 04/15/16 05 :31; Admin Dose 40 MG; Start 04/11/16 at 06:00 Lorazepam (Ativan) 0.5 mg Q6H PRN IV ANXIETY; Start 04/10/16 at 20:00 Hydralazine HCl (Apresoline) 10 mg Q6H PRN IV ELEVATED BLOOD PRESSURE; Start at 20:00 Clonidine (Catapres) 0.1 mg Q6H PRN PO ELEVATED BLOOD PRESSURE Last administered on 04/12/16 08:49; Admin Dose 0.1 MG; Start 04/10/16 at 20:00 Nitroglycerin (Nitroglycerin (Sl Tab) 0.4 Mg) 1 tab Q5M PRN SL ANGINA; Start at 20:00 Hydromorphone HCl (Dilaudid) 2 mg Q4 PRN PO PAIN Last administered on 18:23; Admin Dose 2 MG; Start 04/10/16 at 20:00 Hydroxychloroquine Sulfate (Plaquenil) 400 mg DAILY PO Last administered on 08:48; Admin Dose 400 MG; Start 04/11/16 at 09:00 Prednisone (Prednisone) 5 mg DAILY PO Last administered on 04/15/16 08:48; Admin Dose 5 MG; Start 04/11/16 at 09:00 Zolpidem Tartrate (Ambien) 10 mg QHS PRN PO INSOMNIA; Start 04/10/16 at 20:00 Diphenhydramine HCl (Benadryl) 50 mg Q4 PRN IV ITCHING Last administered on 08:47; Admin Dose 50 MG; Start 04/10/16 at 23:00 Phenol (Cepastat Lozenge) 1 lozenge Q1H PRN [place] COUGH Last administered on 05:01; Admin Dose 1 LOZENGE; Start 04/11/16 at 11:30 Metoprolol Tartrate (Lopressor) 25 mg BID PO Last administered on 04/15/16 08: 48; Admin Dose 25 MG; Start 04/12/16 at 21:00 Levofloxacin 750 mg 750 mg DAILY@06 PO Last administered on 04/15/16t 05:31; Admin Dose 750 MG; Start 04/14/16 at 17:00 Vancomycin HCl/ Sodium Chloride (Vancocin/NS) 150 ml @ 75 mls/hr Q12H IVPB ; Start 04/15/16 at 18:00 TASHA HUGHES MD Apr 15, 2016 11:07
[2016-04-15] MEDS ORDERED: LEVO500T72 PO (15:42)
--- NOTE | 2016-04-15 15:47 | DS ---
Date/Time of Note Date/Time of Note DATE: 04/15/16 TIME: 15:43 Discharge Summary Admission/Discharge Info Admit Date/Time Apr 10, 2016 at 19:06 Discharge Date/Time Final Diagnosis 1.Chest pain, chest wall pain from cough, negative stress test result 2. Acute bronchitis, still with SOB, on levaquin and vanco 3. Systemic inflammatory response syndrome, with leukocytosis and tachycardia. 4. History of lupus. 5. Lactic acidosis. 6. 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 7. Chronic pain syndrome Procedures [place] [address] Radiology Main Line: [phone] DIAGNOSTIC IMAGING REPORT Patient: CLAUDIA FERREIRA : 1980 Age: 35 Sex: F MR #: [id number] DOS: 04/10/16 1215 Ordering MD: DONNA STAPLETON DO Location: E/R Room/Bed: PROCEDURE: CTA Chest and pulmonary angiogram. CLINICAL INDICATION: Chest pain and shortness of breath. TECHNIQUE: CT scan of the chest and CT pulmonary angiogram was performed on a multidetector high-resolution CT scanner. High-resolution thin slice coronal and sagittal imaging was obtained from the axial source images. 3-D volumetric rendered post processing was performed as well. The patient was examined following the uncomplicated intravenous administration of 100 cc of Omnipaque- 300. The images were reviewed on a PACS workstation. The total exam CTDI equals 55.26 mGy, and the total exam DLP equals 827.72 mGy-cm. COMPARISON: CT pulmonary angiogram March 09, 2016 FINDINGS: There is no central or peripheral pulmonary embolism. Thoracic aorta is normal. No dissection or aneurysm is present. There is minimal atelectasis in the right costophrenic recess. A few scattered ill-defined nodular densities are seen in the right upper lobe suggestive of mild bronchiolitis. No alveolar infiltrate or mass is present. There is no pleural or pericardial effusion. No pneumothorax is present. No hilar or mediastinal adenopathy or masses seen. There is a left upper extremity PICC line. No upper abdominal or adrenal mass is present. The gallbladder has been removed. Thoracic spine is normal. IMPRESSION: No pulmonary embolism. No aortic dissection or aneurysm. A few scattered ill-defined nodular densities right upper lobe suggestive of mild bronchiolitis. Post cholecystectomy. RPTAT: HMJB .Russ Turner MD, Date Time Electronically viewed and signed by .Russ Turner MD, MD on 04/10/2016 14: 22 .A/ CC: DONNA STAPLETON DO [place] [address] Radiology Main Line: [phone] DIAGNOSTIC IMAGING REPORT Patient: CLADUIA FERREIRA : 1980 Age: 35 Sex: F MR #: [id number] DOS: 04/13/16 1200 Ordering MD: ILAN RUSSELL MD Location: [facility] [place] Room/Bed: [place] PROCEDURE: Lexiscan myocardial perfusion study CLINICAL INDICATION: 35 -year-old patient complaining of chest pain. TECHNIQUE: Lexiscan 0.4 mg intravenously separate acquisition gated myocardial perfusion SPECT using Tc 99m Myoview 31.9 mCi intravenously at stress and Tc-99m Myoview, 10.8 mCi intravenously at rest was performed using the rest/stress sequence. Poststress Myoview SPECT images were obtained in the supine position. COMPARISON: No prior studies. FINDINGS: Perfusion images reveal mild nonreversible reduction in perfusion is seen in the anterior and inferior kelly, which as likely related to soft tissue attenuation. Lexiscan post stress gated SPECT images demonstrate mild to moderate hypokinesis of the left ventricle. IMPRESSION: 1. No evidence of stress-induced ischemia. 2. Mild to moderate hypokinesis of the left ventricle. 3. The left ventricle ejection fraction at stress is 38%. A call report was made to Dr. Russell at 03:35 p.m. on April 13, 2016. RPTAT: HH .Lala Pinon MD, MD Date Time Electronically viewed and signed by .Lala Pinon MD, MD on 04/13/2016 15:38 .L/ CC: ILAN RUSSELL of Present Illness Patient is a 35-year-old female with a history of pulmonary embolism, status post IVC filter, on Xarelto, lupus, questionable osteomyelitis of the cervical and thoracic spine, chronic pain syndrome, obesity with a BMI of 37, and possible hemolytic anemia, who presented to the emergency department with chest pain. She stated that the pain started this morning, and it is localized under her left breast and is sharp in nature and it is nonradiating. The patient was admitted here a month ago after she presented with chest pain. At that time, she had 3 negative troponins and her echocardiogram showed EF of 50% to 55%. Now, she states that her pain started this morning as described above. When she presented to the ER she was tachycardic with a heart rate of 125. Otherwise, the rest of her vitals were stable. CT pulmonary angiogram was done and it was negative for PE, aortic dissection, or aneurysm, but noted were a few scattered, ill-defined nodular densities in the right upper lobe suggestive of mild bronchiolitis. Chest x-ray shows minimal right basilar discoid atelectasis. Laboratory value was notable for a WBC of 14.4. The patient was given Solu- Medrol with Dilaudid and was started on antibiotics. Of note, during last hospitalization it was noted that the patient did exhibit some drug seeking behavior. She also reported that she had cervical and thoracic spine osteomyelitis for which she stated she gets treated with antibiotics for 9 months and then takes a break for 3 months. She was supposed to present documentation, but during last hospitalization she never did. In any case, patient is currently admitted to telemetry unit to rule out ACS. Her first troponin is negative and EKG with no ST-T wave abnormality. Of note, she did present with a lactic acid of 2.7. Hospital Course About the chest pain, patient has negative troponin, negative stress thallium test. The chest pain is considered chest wall pain from cough. Patgient has bronchitis/pneumonia that she is on levaquin. She is discharged on levaquin 5 days. No preganancy while taking levaquin. Home Meds Active Scripts Levofloxacin* (Levaquin*) 500 Mg Tablet, 500 MG PO DAILY for 5 Days, TAB Prov:JILLIAN COLORADO MD 04/15/16 Reported Medications Vancomycin HCl (Vancomycin HCl) 500 Mg Vial.port, 500 MG IMPLANTED Q12 ON GOING TREATMENT PER PT 04/10/16 Diphenhydramine Hcl* (Benadryl*) 50 Mg Cap, 50 MG PO Q4 Y for ITCHING, CAP 04/10/16 Zolpidem Tartrate* (Ambien*) 10 Mg Tablet, 10 MG PO QHS Y for INSOMNIA, TAB 03/09/16 Hydromorphone Hcl* (Dilaudid*) 2 Mg Tablet, 2 MG PO Q4 Y for PAIN, TAB 03/09/16 Rivaroxaban* (Xarelto*) 20 Mg Tablet, 20 MG PO WITH DINNER, TAB 03/09/16 Prednisone* (Prednisone*) 5 Mg Tab, 5 MG PO DAILY, TAB 03/09/16 Hydroxychloroquine Sulfate* (Plaquenil*) 200 Mg Tab, 400 MG PO DAILY, TAB 03/09/16 Follow-up Plan PCP 1-2 weeks Pending Labs Laboratory Tests Test 04/15/16 00:45 04/15/16 10:05 Vancomycin Level Trough 22.0ug/ml (10.0-20.0) Anion Gap 13 (8-16) Basophils # 0.010^3/ul (0.0-0.1) Basophils % 0.4% (0.0-2.0) Blood Morphology Comment Blood Urea Nitrogen 12mg/dl (7-20) Calcium Level 8.6mg/dl (8.4-10.2) Carbon Dioxide Level 26mmol/L (21-31) Chloride Level 107mmol/L (97-110) Creatinine 0.89mg/dl (0.44-1.00) Eosinophils # 0.110^3/ul (0.0-0.5) Eosinophils % 1.8% (0.0-7.0) Glucose Level 96mg/dl (70-220) Hematocrit 32.6% (37.0-47.0) Hemoglobin 10.8g/dl (12.0-16.0) Lymphocytes # 1.110^3/ul (0.8-2.9) Lymphocytes % 15.2% (15.0-51.0) Mean Corpuscular Hemoglobin 30.0pg (29.0-33.0) Mean Corpuscular Hemoglobin Concent 33.2g/dl (32.0-37.0) Mean Corpuscular Volume 90.4fl (82.0-101.0) Mean Platelet Volume 7.8fl (7.4-10.4) Monocytes # 0.310^3/ul (0.3-0.9) Monocytes % 4.7% (0.0-11.0) Neutrophils # 5.410^3/ul (1.6-7.5) Neutrophils % 77.9% (39.0-77.0) Nucleated Red Blood Cells # 0.010^3/ul (0.0-0.0) Nucleated Red Blood Cells % 0.0/100WBC (0.0-0.0) Platelet Count 84096^3/UL (140-440) Potassium Level 3.7mmol/L (3.5-5.1) Red Blood Count 3.6110^6/ul (4.20-5.40) Red Cell Distribution Width 20.6% (11.5-14.5) Sodium Level 142mmol/L (135-144) White Blood Count 6.910^3/ul (4.8-10.8) JILLIAN COLORADO MD Apr 15, 2016 15:47
[2016-04-15] MEDS ORDERED: VANCOMYCIN 750 MG in SOD CHLORIDE 0.9% 150 ML IVPB SCH (18:00)
== END 2016-04-15 18:40 | disposition home or self-care (01) | DRG 202 ==
LOC: E/R 10:37 → MS4 19:06 → PP2 04-14 18:39
PROVIDERS: ADMIT Hospitalist; ATTEND Hospitalist
DX: J20.9 Acute bronchitis, unspecified (principal); R65.10 Systemic inflammatory response syndrome (SIRS) of non-infectious origin without acute organ dysfunction; E87.0 Hyperosmolality and hypernatremia; E87.2 Acidosis; D68.62 Lupus anticoagulant syndrome; Z79.52 Long term (current) use of systemic steroids; D64.9 Anemia, unspecified; Z86.711 Personal history of pulmonary embolism; Z79.02 Long term (current) use of antithrombotics/antiplatelets; G89.4 Chronic pain syndrome; R07.89 Other chest pain; I10 Essential (primary) hypertension
CPT/HCPCS: 36415; 71010; 71275; 78452; 80048; 80061; 80202; 81001; 81003; 82550; 82553; 83036; 83605; 83735; 83880; 84100; 84439; 84443; 84484; 85025; 85610; 85730; 87040; 87086; 93005; 93017; 94640; 94664; 96374; 96375; 96376; 97162; A9500; A9505; J0696; J1170; J1200; J1956; J2270; J2405; J2785; J2930; J2997; J3010; J3370; J7030; J7050; J7512; Q9967

== ENCOUNTER 2016-06-16 09:42 | Observation (INO) | payer MEDICARE ==
[~2016-06-16] VITALS: Ht 160 cm; Wt 90.0 kg
[~2016-06-16 09:42] MED LIST changes: +BEN50 IV; +HYDR2TAB15 IV*; -HYDR2TAB15 PO; +LEVO500T72 PO; +VAN500I IMPLANTED
[2016-06-16] MEDS ORDERED: SOD CHLORIDE 0.9% 1,000 ML IV STA (10:03)
[2016-06-16] MEDS ORDERED: HYDROmorphONE 2 MG/ML SYG IV STA ×2 (10:03→12:21)
[2016-06-16] MEDS ORDERED: METHYLPREDNISOLONE 125 MG INJ IV ONE (10:30)
[2016-06-16] MEDS ORDERED: DIPHENHYDRAMINE 50 MG INJ IV ONE ×2 (10:30→12:30)
[2016-06-16 10:49] LABS: ADD SCAN DIFF NO
[2016-06-16 10:50] LABS: BASOPHILS % 0.1 % (0.0-2.0); HEMATOCRIT 35.7 % (37.0-47.0); HEMOGLOBIN 11.7 g/dl (12.0-16.0); LYMPHOCYTES # 0.8 10^3/ul (0.8-2.9); LYMPHOCYTES % 5.3 % (15.0-51.0); MEAN CORPUSCULAR HEMOGLOBIN 29.8 pg (29.0-33.0); MEAN CORPUSCULAR HGB CONC 32.8 g/dl (32.0-37.0); MEAN CORPUSCULAR VOLUME 91.1 fl (82.0-101.0); MEAN PLATELET VOLUME 10.3 fl (7.4-10.4); MONOCYTE # 0.6 10^3/ul (0.3-0.9); MONOCYTES % 4.4 % (0.0-11.0); NEUTROPHIL # 12.8 10^3/ul (1.6-7.5); NEUTROPHILS % 89.7 % (39.0-77.0); PLATELET COUNT 291 10^3/UL (140-415); RED BLOOD COUNT 3.92 10^6/ul (4.20-5.40); RED CELL DISTRIBUTION WIDTH 13.9 % (11.5-14.5); WHITE BLOOD COUNT 14.3 10^3/ul (4.8-10.8)
[2016-06-16 11:01] LABS: INR 0.95; PARTIAL THROMBOPLASTIN TIME 22.6 Sec (25.0-35.0); PROTIME 12.7 Sec (12.2-14.2)
[2016-06-16 11:02] LABS: ALBUMIN 3.9 g/dl (3.3-4.9); CHLORIDE 105 mmol/L (97-110)
[2016-06-16 11:03] LABS: POTASSIUM 3.6 mmol/L (3.5-5.1); SODIUM 144 mmol/L (135-144)
[2016-06-16 11:05] LABS: ALANINE AMINOTRANSFERASE 32 IU/L (13-69); ALKALINE PHOSPHATASE 84 IU/L (42-121); ANION GAP 16 (8-16); ASPARTATE AMINO TRANSFERASE 19 IU/L (15-46); BILIRUBIN,INDIRECT 0.1 mg/dl (0-1.1); BILIRUBIN,TOTAL 0.1 mg/dl (0.2-1.3); BLOOD UREA NITROGEN 16 mg/dl (7-20); CARBON DIOXIDE 27 mmol/L (21-31); CREATININE 0.77 mg/dl (0.44-1.00); GLUCOSE 94 mg/dl (70-220); TOTAL PROTEIN 6.5 g/dl (6.1-8.1)
[2016-06-16 11:06] LABS: CALCIUM 9.4 mg/dl (8.4-10.2); CREATINE KINASE 23 IU/L (23-200)
[2016-06-16 11:15] LABS: B-TYPE NATRIURETIC PEPTIDE 600 PG/ML (0-125)
[2016-06-16 11:29] LABS: TROPONIN-I < 0.012 ng/ml (0.00-0.12)
[2016-06-16 11:30] LABS: CK-MB < 0.22 ng/ml (0.0-2.4)
[2016-06-16] MEDS ORDERED: SOD CHLORIDE 0.9% 100 ML ONE (11:51)
[2016-06-16] MEDS ORDERED: IODIXANOL LOCM 100 ML BTL ONE (11:51)
[2016-06-16] MEDS ORDERED: IODIXANOL LOCM 50 ML BTL ONE (11:51)
--- NOTE | 2016-06-16 12:20 | RADRPT ---
PROCEDURE: CTA Chest. CLINICAL INDICATION: Chest pain and shortness of breath TECHNIQUE: Continues 1.25 mm axial images were obtained from lung apices to the domes of diaphragm s following intravenous injection of 115 cc of Isovue 370. Images reconstructed in coronal, sagitta l, and 3-D format using maximum intensity projection technique.. The calculated dose length product (DLP) = 687.65 mGy-cm. The CTDlvol = 19.80 mGy. One or more of the following dose reduction techniq ues were used: Automated exposure control, adjustment of the mA and or KV according to patient size, or use of iterative reconstruction technique. COMPARISON: 04/10/2016 FINDINGS: Images through the pulmonary arteries demonstrates no evidence of a large or central pulmonary embol i. The ascending and descending thoracic aorta are normal in caliber without aneurysmal dilatation or dissection. Heart chambers are normal in size. There is no pericardial effusion. No significan t coronary calcification is seen. There are no pathologically enlarged mediastinal or axillary lymp h nodes. Evaluation of the lung luna demonstrates interval resolution of previously described foci of pneum onitis in the right upper lung. There is a persistent area of rounded atelectasis in the right lowe r lobe posteriorly. The lungs otherwise clear. No suspicious or dominant lung nodules or masses ar e seen. There is no confluent pneumonia, pleural fluid, or pneumothorax. The underlying architectu re of the lungs is normal. No destructive bony lesions are seen. Images through the upper abdomen demonstrate hyperdense cysts within the right kidney. This may rep resent hemorrhagic/proteinaceous cyst. The gallbladder surgically absent. Incidental note is made of left arm PICC line. IMPRESSION: 1. No evidence of large or central pulmonary emboli. 2. No aortic aneurysm or dissection. 3. Previously seen areas of pneumonitis in the right upper lung of resolved. There is stable rounde d atelectasis in the right lower lobe. Lungs otherwise clear. 4. Left arm PICC line. 5. Stable hyperdense cyst within the right kidney. 6. Status post cholecystectomy RPTAT: HH .Shamir Reis MD, MD Date Time Electronically viewed and signed by .Shamir Reis MD, on 06/16/2016 12:20 .W/
--- NOTE | 2016-06-16 12:40 | ERA ---
ER Documentation Chief Complaint Date/Time DATE: 06/16/16 TIME: 12:34 Chief Complaint chest pain sudden onset for the past hour. mild sob. HPI This is a 35-year-old female with a significant past medical history of lupus, ostium myelitis, hemolytic anemia and multiple pulmonary embolisms. The patient had a first pulmonary embolism in 2011 and since that time has had had subsequently 7 recurrent pulmonary embolisms. She had 2 IVC filters placed in 2011 after her second pulmonary and pleasant. The patient takes 20 mg of Xarelto on a daily basis but indicates she does still have recurrent PEs while on the Xarelto. 3 days prior to arrival the patient had traveled on an airplane from [place] to [place] for 4 hours. She indicates that just an hour prior to arrival she developed a sudden onset of left chest pressure which was underneath her breast, nonradiating, worse with exertion and shortness of breath. The patient indicated that 1 hour prior to arrival she was sitting and had a brief transient loss of consciousness that lasted for roughly 30 seconds. She denies a headache. She denies any neck pain. The patient is currently on IV vancomycin and takes Dilaudid through her PICC line. 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 She has had no fevers or shaking or chills. She denies any associated symptoms of nausea vomiting or diaphoresis. ROS All systems reviewed and are negative except as per history of present illness. Medications Home Meds Reported Medications Vancomycin HCl (Vancomycin HCl) 500 Mg Vial.port, 500 MG IMPLANTED Q12 ON GOING TREATMENT PER PT 04/10/16 Diphenhydramine Hcl* (Benadryl*) 50 Mg Cap, 50 MG PO Q4 Y for ITCHING, CAP 04/10/16 Zolpidem Tartrate* (Ambien*) 10 Mg Tablet, 10 MG PO QHS Y for INSOMNIA, TAB 03/09/16 Hydromorphone Hcl* (Dilaudid*) 2 Mg Tablet, 2 MG PO Q4 Y for PAIN, TAB 03/09/16 Rivaroxaban* (Xarelto*) 20 Mg Tablet, 20 MG PO WITH DINNER, TAB 03/09/16 Hydroxychloroquine Sulfate* (Plaquenil*) 200 Mg Tab, 400 MG PO DAILY, TAB 03/09/16 Discontinued Reported Medications Prednisone* (Prednisone*) 5 Mg Tab, 5 MG PO DAILY, TAB 03/09/16 Discontinued Scripts Levofloxacin* (Levaquin*) 500 Mg Tablet, 500 MG PO DAILY for 5 Days, TAB Prov:JILLIAN COLORADO MD 04/15/16 Allergies Allergies: Coded Allergies: adhesive tape (Verified Allergy, Severe, 04/10/16) chlorhexidine (Verified Allergy, Severe, anaphylaxis, 03/10/16) ketorolac (Verified Allergy, Severe, anaphylaxis, 03/10/16) NSAIDS (Non-Steroidal Anti-Inflamma (Verified Allergy, Intermediate, hives , 03/10/16) Sulfa (Sulfonamide Antibiotics) (Verified Allergy, Intermediate, hives, ) aspirin (Verified Allergy, Unknown, 04/13/16) Uncoded Allergies: CT CONTRAST (Allergy, Severe, 04/10/16) ARTIFICIAL SWEATNERS (Allergy, Unknown, 04/10/16) PMhx/Soc History of Surgery: Yes (CHOLECYSTECTOMY, IVC FILTERS, APPENDECTOMY, META PORTS ) Anesthesia Reaction: No Hx Neurological Disorder: No Hx Cardiac Disorders: No Hx Psychiatric Problems: No Hx Miscellaneous Medical Probl: Yes (Lupus anticoagulants, SLE lupus, hemolytic anemia.) Hx Alcohol Use: No Hx Substance Use: No Hx Tobacco Use: No Smoking Status: Never smoker Physical Exam Vitals Vital Signs Date Time Temp Pulse Resp B/P Pulse Ox O2 Delivery O2 Flow Rate FiO2 06/16/16 12:31 98.8 124 22 167/103 98 Nasal Cannula 2.0 06/16/16 10:21 Nasal Cannula 2 06/16/16 09:47 98.8 115 22 178/98 98 Physical Exam Constitutional:Well-developed. Well-nourished. HEENT:Normocephalic. Atraumatic.Pupils were equal round reactive to light. Moist mucous membranes.No tonsillar exudates. Neck: No nuchal rigidity. No lymphadenopathy. No posterior cervical spine tenderness or step-offs. Respiratory: Not using accessory muscles of respiration.Lungs were clear to auscultation bilaterally. No rhonchi. No rales. No wheezing. Cardiovascular: Tachycardic with regular rhythm.No murmurs. No rubs were appreciated.S1, S2 normal. Distal pulses are palpable 2+ bilaterally. No reproducible chest wall tenderness crepitus or ecchymosis GI: Abdomen was soft. Nontender. Non Distended. No pulsatile abdominal masses or bruits. No rebound. No guarding. Bowel sounds were present and normal. Muscle skeletal: Full range of motion of both the upper and lower extremities bilaterally.Normal muscle tone.No assymetrical calf tenderness or swelling. No tenderness with palpation or percussion of the thoracic or lumbar spinous processes Skin: No petechia, no purpura. No lesions on the palms or the soles of the feet. No maculopapular rash. Left-sided PICC line in the upper extremity is clean dry and intact NEURO: Patient was alert, awake, orientated x3.No facial droop. Gait observed and normal with no ataxia.Speech had regular rate and rhythm. No focal neurological deficits. Result Diagram: 06/16/16 1025 06/16/16 1025 Results 24 hrs Laboratory Tests Test 06/16/16 10:25 White Blood Count 14.310^3/ul Red Blood Count 3.9210^6/ul Hemoglobin 11.7g/dl Hematocrit 35.7% Mean Corpuscular Volume 91.1fl Mean Corpuscular Hemoglobin 29.8pg Mean Corpuscular Hemoglobin Concent 32.8g/dl Red Cell Distribution Width 13.9% Platelet Count 01085^3/UL Mean Platelet Volume 10.3fl Neutrophils % 89.7% Lymphocytes % 5.3% Monocytes % 4.4% Eosinophils % 0.0% Basophils % 0.1% Nucleated Red Blood Cells % 0.0/100WBC Neutrophils # 12.810^3/ul Lymphocytes # 0.810^3/ul Monocytes # 0.610^3/ul Eosinophils # 0.010^3/ul Basophils # 0.010^3/ul Nucleated Red Blood Cells # 0.010^3/ul Prothrombin Time 12.7Sec Prothrombin Time Ratio 1.0 INR International Normalized Ratio 0.95 Activated Partial Thromboplast Time 22.6Sec Sodium Level 144mmol/L Potassium Level 3.6mmol/L Chloride Level 105mmol/L Carbon Dioxide Level 27mmol/L Anion Gap 16 Blood Urea Nitrogen 16mg/dl Creatinine 0.77mg/dl Glucose Level 94mg/dl Calcium Level 9.4mg/dl Total Bilirubin 0.1mg/dl Direct Bilirubin 0.00mg/dl Indirect Bilirubin 0.1mg/dl Aspartate Amino Transf (AST/SGOT) 19IU/L Alanine Aminotransferase (ALT/SGPT) 32IU/L Alkaline Phosphatase 84IU/L Creatine Kinase 23IU/L Creatine Kinase Index 1.0 Creatinine Kinase MB (Mass) < 0.22ng/ml Troponin I < 0.012ng/ml B-Type Natriuretic Peptide 600PG/ML Total Protein 6.5g/dl Albumin 3.9g/dl Globulin 2.60g/dl Albumin/Globulin Ratio 1.50 Serum HCG, Qualitative NEGATIVE Current Medications Medications (Trade) Dose Ordered Sig/Omega Route PRN Reason Start Time Stop Time Status Last Admin Dose Admin Sodium Chloride (NS) 1,000 ml @ 1,000 mls/hr Q1H STAT IV 06/16/16 10:03 06/16/16 11:03 DC 06/16/16 10:15 Hydromorphone HCl (Dilaudid) 2 mg ONCE STAT IV 06/16/16 10:03 06/16/16 10:06 DC 06/16/16 10:15 Diphenhydramine HCl (Benadryl) 50 mg ONCE ONCE IV 06/16/16 10:30 06/16/16 10:31 DC 06/16/16 10:15 Methylprednisolone Sodium Succinate (Solu-Medrol) 125 mg ONCE ONCE IV 06/16/16 10:30 06/16/16 10:31 DC 06/16/16 10:15 IV Flush 10 ml 10 ml STK-MED ONCE .ROUTE 06/16/16 11:51 06/16/16 11:52 DC 06/16/16 12:11 Sodium Chloride (NS) 100 ml @ ud STK-MED ONCE .ROUTE 06/16/16 11:51 06/16/16 11:52 DC 06/16/16 12:11 Iodixanol (Visipaque Locm) 100 ml STK-MED ONCE .ROUTE 06/16/16 11:51 06/16/16 11:52 DC 06/16/16 12:12 Iodixanol (Visipaque Locm) 50 ml STK-MED ONCE .ROUTE 06/16/16 11:51 06/16/16 11:52 DC 06/16/16 12:12 Diphenhydramine HCl (Benadryl) 50 mg ONCE ONCE IV 06/16/16 12:30 06/16/16 12:31 DC 06/16/16 12:29 Hydromorphone HCl (Dilaudid) 2 mg ONCE STAT IV 06/16/16 12:21 06/16/16 12:22 DC 06/16/16 12:29 Procedures/MDM The patient presented to the emergency department with shortness of breath. My differential diagnosis included but was not limited to upper airway obstruction , CHF, pulmonary embolism, cardiac ischemia, pneumonia, pneumothorax, anemia, drug overdose, pulmonary edema, COPD or asthma. The patient was immediately placed on residential monitor continuous pulse oximetry and indicates that she has an allergy to IV contrast and therefore requested to be given 125 mg of Solu-Medrol and 50 mg of Benadryl prior to the CT scan. The CT scan was reviewed by myself and indicated there is no evidence of a pulmonary embolism at this time. The abdominal aorta was not widened my clinical suspicion for aortic dissection was low. The patient also complained of chest pain which she stated was exacerbated with exertion. I did feel this could be result of pleurisy. Cardiac troponins were normal. There is no evidence of ischemia on the 12-lead EKG tracing. 12 Lead EKG tracing ordered and reviewed by myself showed: Sinus tachycardia at 114 bpm and no arrhythmia. TN interval normal. QRS duration normal. No ST segment elevation No ST segment depression. No changes consistent with acute ischemia. The patient also presented to the emergency department with a transient loss of consciousness with loss of postural tone, suggestive of a syncope episode in addition to her chest pain and SOB. The differential diagnosis of syncope is vast but my workup considered common benign disorders to life-threatening processes. Therefore my differential diagnosis included but was not limited to reflex-mediated syncope such as vasovagal or carotid sinus syncope from coughing , sneezing, micturition, or GI stimulation (eg, defecation). Other etiologies in my workup included orthostatic hypotension which could cause syncope from an abrupt drop in venous return to heart from volume depletion. An EKG and cardiac enzymes were obtained to rule out cardiac arrhythmias or ischemia. Cardiopulmonary disease such as valvular disease, hypertrophic cardiomyopathy, pericardial tamponade, or pulmonary embolism were considered as a factor causing the patients syncope episode. The patient had no difference in blood pressure in both arms that could suggest aortic dissection or subclavian steal syndrome. Rectal exam was negative for fecal occult blood that could suggest GI bleeding. Ancillary laboratory work was obtained to evaluate for metabolic or electrolyte abnormalities. The patient had no witnessed brief tonic movements that could suggest postictal confusion. Given that the patient has multiple comorbidities is still stated she was feeling chest discomfort after receiving IV Dilaudid I did feel she required admission for observation. She will be admitted to the hospitalist. Departure Diagnosis: Primary Impression: Chest pain Qualified Code: R07.1 - Chest pain on breathing Additional Impression: Syncope Qualified Code: R55 - Syncope, unspecified syncope type Condition: Serious CHARI WILLINGHAM Jun 16, 2016 12:40
[2016-06-16] MEDS ORDERED: ONDANSETRON 4 MG INJ IV PRN ×2 (13:30→16:30)
[2016-06-16] MEDS ORDERED: ACETAMINOPHEN 325 MG TAB PO PRN ×2 (13:30→16:30)
[2016-06-16] MEDS ORDERED: LABETALOL HCL 20MG INJ IV ONE (14:00)
[2016-06-16 14:02] VITALS: TEMP 98.6
[2016-06-16 14:21] VITALS: BP 161/85; PULSE 104; RESP 20
[2016-06-16 14:27] VITALS: Ht 160 cm; Wt 90.0 kg
[2016-06-16 16:00] VITALS: BP 131/96; PULSE 94; RESP 20
[2016-06-16] MEDS ORDERED: LORAZEPAM 2 MG INJ IV PRN (16:30)
[2016-06-16] MEDS ORDERED: NACL 0.9% 3 ML SYG IV SCH (16:30)
[2016-06-16] MEDS ORDERED: ZOLPIDEM 5 MG TAB PO PRN (16:30)
[2016-06-16] MEDS ORDERED: MAGNESIUM HYDROXIDE 30ML CUP PO PRN (16:30)
[2016-06-16] MEDS ORDERED: NITROGLYCERIN (SL) 0.4 MG TAB SL PRN (16:30)
[2016-06-16] MEDS ORDERED: ALBUTEROL/IPRATROPIUM (NEB) 3 ML AMP HHN PRN (16:30)
[2016-06-16] MEDS ORDERED: hydrALAzine 20 MG INJ IV PRN ×2 (16:30→20:30)
[2016-06-16] MEDS ORDERED: DOCUSATE SODIUM 100 MG CAP PO PRN (16:30)
[2016-06-16] MEDS ORDERED: NA PHOSPHATE/BIPHOS 133 ML ENEMA PR PRN (16:30)
[2016-06-16 16:33] VITALS: PULSE 107
[2016-06-16] MEDS: morphine 2 MG INJ IV PRN ×2 (17:22→21:49)
[2016-06-16] MEDS: SOD CHLORIDE 0.45% 1,000 ML IV SCH (17:28)
[2016-06-16] MEDS ORDERED: VANCOMYCIN IV PER PHARMACY XX SCH (17:30)
[2016-06-16] MEDS: RIVAROXABAN 20 MG TABLET PO SCH (18:11)
[2016-06-16 18:17] LABS: CK-MB < 0.22 ng/ml (0.0-2.4); CREATINE KINASE < 20 IU/L (23-200); TROPONIN-I < 0.012 ng/ml (0.00-0.12)
[2016-06-16 20:00] VITALS: BP 155/87; RESP 19
[2016-06-16] MEDS: DIPHENHYDRAMINE 25 MG CAP PO PRN (20:01)
[2016-06-16] MEDS: LEVOFLOXACIN 750MG/D5W (PMX) 150 ML IVPB SCH (20:02)
[2016-06-16 20:19] VITALS: PULSE 98
--- NOTE | 2016-06-16 20:42 | HP ---
DATE OF ADMISSION: 06/16/2016 CHIEF COMPLAINT: Chest pain. HISTORY OF PRESENT ILLNESS: A 35-year-old female with past medical history of questionable osteomye litis of the C and T-spine regions on IV antibiotics at home for chronic treatment for the last 2 ye ars, history of chronic pain syndrome and drug-seeking behavior, multiple blood clots including pulm onary embolism status post IVC filter placement, on Xarelto, history of lupus on Plaquenil, who pres ents with chest pain that began earlier today, substernal in nature. Apparently, she traveled from [place] to [place] 3 days prior to arrival. When she was arriving at that time, she apparently d eveloped chest pain and had chest pain again today. No nausea, vomiting. No fevers or chills. No upper or lower GI bleeding, no diarrhea, no constipation. No headaches or neck pain. When she came into the ER today, she was found with a white blood cell count of 14.3 and her BNP is slightly high at 600. She had a CTA performed that was negative for any pulmonary embolism, but there are some a reas of possible pneumonitis in the right upper lung area as well. The patient was last here at our hospital from 04/10/2016 to 04/15/2016. At that time, she was treated for chest pain, ruled out fo r acute coronary syndrome including having a negative cardiac stress test at that time. Of note, he r last echocardiogram was in 02/2016. At that time, showed lower limits of normal systolic function , normal left ventricular cavity size, normal left ventricular wall thickness, ejection fraction of 50% to 55%, mild enlargement of the left atrium, mitral valve leaflets appear mildly thickened. PAST MEDICAL HISTORY: As stated above. ALLERGIES: SHE HAS MULTIPLE ALLERGIES INCLUDIN. ARTIFICIAL SWEETENERS. 2. CT CONTRAST. 3. NSAIDS. 4. SULFA MEDICATIONS. 5. ADHESIVE TAPE. 6. ASPIRIN. 7. CHLORHEXIDINE. 8. TORADOL. PAST SURGICAL HISTORY: Again apparently, IVC filter placement in the past as well as cholecystectom y, appendectomy. SOCIAL HISTORY: Negative for smoking, drinking, or IV drug abuse, supposedly. FAMILY HISTORY: Noncontributory. PHYSICAL EXAMINATION: VITAL SIGNS: T-max 98.8, pulse 115 to 124, respirations 22, blood pressure 167 to 178 systolic over 98 to 103, diastolic, saturating at 98% on 2 liters nasal cannula. GENERAL: The patient is sitting up in bed, answering questions appropriately, slightly anxious, but alert, in no acute distress. HEENT: Pupils equal, round, react to light. Extraocular muscles intact. NECK: Supple. No thyromegaly. LUNGS: Clear to auscultation bilaterally. CARDIOVASCULAR: Slightly tachycardic heart rate, but no rubs or gallops are noted. ABDOMEN: Soft, nontender, nondistended. Normal bowel sounds. No rebound or guarding. MUSCULOSKELETAL: No lower extremity edema bilaterally. NEUROLOGIC: No focal deficits. LABORATORIES: WBC 14.3, hemoglobin 11.7, hematocrit 35.7, platelets 291. The comprehensive metabol ic panel is normal. Again, the troponin is negative x1. BNP is 600. Free T4 is a little low at 0. 76. Again, CTA results as mentioned above in the HPI. ASSESSMENT AND PLAN: A 35-year-old female coming in with chest pain symptoms, rule out for acute co ronary syndrome with a prior history of multiple pulmonary embolisms and chronic osteomyelitis and l upus. 1. Chest pain. Again, admit her to telemetry floor, trend her troponins, check them every 6 hours x3. SHE IS ALLERGIC APPARENTLY TO ASPIRIN, so put her on morphine, oxygen, and nitrates p.r.n. Darek l check a TSH, A1c, lipid panel. If there are any abnormalities, we will get a cardiology consult a t that time. 2. Leukocytosis. Again, unclear source, possibly from a mild upper respiratory infection. Again a pparently, she has history of chronic osteomyelitis. I have asked her again to bring in her medical records to get more information about patient's possible chronic osteomyelitis and needs for PICC l ine and history of IVC filter placement. She claims she will bring that in. In the meantime regard ing leukocytosis, will put her on vancomycin and Levaquin for now to treat possible upper respirator y infection and/or osteomyelitis or both. If there are any abnormalities, we will get an ID consult at that time. 3. History of multiple pulmonary embolisms and possible lupus anticoagulant. Continue Xarelto for now. Again, CTA of the chest was negative for pulmonary embolism. We will also check anticonvulsan t antiphospholipid antibody test as well. See if I can confirm or deny that she may have lupus anti coagulant. 4. History of lupus. Continue Plaquenil for now. 5. Breast rash. Continue p.o. Benadryl for now and also will add Nystatin powder. 6. Chronic pain syndrome and drug-seeking behavior. It has been explained to the patient that ranjan viera she provides documentation about the needs for IV Benadryl and IV Dilaudid, which she claims she t akes at home, we will be cautious with her pain medicines. For now, her vital signs are relatively stable. She is not in any overt pain symptoms right now, so we will continue with just p.r.n. morph ine and [place] for now and monitor vital signs very carefully. 7. Gastrointestinal prophylaxis, proton pump inhibitor. 8. Deep venous thrombosis prophylaxis. She is on Xarelto. Dictated By: KOMAL KUMAR/OLENA Conf#: [id number] DID#: [id number] CC: ZULEIMA ERAZO MD;*[facility]*
[2016-06-16] MEDS ORDERED: VANCOMYCIN 500MG INJ IMPLANTED SCH (21:00)
[2016-06-16] MEDS: NYSTATIN 30 GM POWDER BTL TOP SCH (21:49)
[2016-06-16] MEDS: VANCOMYCIN 1.25 GM in SOD CHLORIDE 0.9% 250 ML IVPB SCH (21:50)
[2016-06-16] MEDS: HEPARIN 5,000 UNIT/0.5 ML VIAL SC SCH (22:00)
[2016-06-16 23:15] LABS: CK-MB < 0.22 ng/ml (0.0-2.4); CREATINE KINASE < 20 IU/L (23-200); TROPONIN-I < 0.012 ng/ml (0.00-0.12)
[2016-06-17] VITALS (12 sets, daily range): BP systolic 125–177; BP diastolic 68–105; PULSE 76–110; RESP 18–20
[2016-06-17] MEDS: morphine 2 MG INJ IV PRN ×6 (02:11→21:05)
[2016-06-17] MEDS: SOD CHLORIDE 0.45% 1,000 ML IV SCH ×2 (05:37→17:59)
[2016-06-17] MEDS: PANTOPRAZOLE (EC) 40 MG TAB PO SCH (06:45)
[2016-06-17] MEDS: DIPHENHYDRAMINE 25 MG CAP PO PRN ×2 (07:21→20:29)
[2016-06-17] MEDS: VANCOMYCIN 1.25 GM in SOD CHLORIDE 0.9% 250 ML IVPB SCH ×2 (07:22→20:29)
[2016-06-17] MEDS: HYDROCODONE/APAP (5/325) TAB PO PRN ×2 (07:31→16:07)
[2016-06-17 08:01] LABS: ADD SCAN DIFF NO
[2016-06-17 08:11] LABS: BASOPHILS % 0.1 % (0.0-2.0); HEMATOCRIT 30.4 % (37.0-47.0); HEMOGLOBIN 9.5 g/dl (12.0-16.0); LYMPHOCYTES # 0.7 10^3/ul (0.8-2.9); MEAN CORPUSCULAR HEMOGLOBIN 29.3 pg (29.0-33.0); MEAN CORPUSCULAR HGB CONC 31.3 g/dl (32.0-37.0); MEAN CORPUSCULAR VOLUME 93.8 fl (82.0-101.0); MEAN PLATELET VOLUME 10.1 fl (7.4-10.4); MONOCYTE # 0.7 10^3/ul (0.3-0.9); MONOCYTES % 5.6 % (0.0-11.0); NEUTROPHIL # 10.8 10^3/ul (1.6-7.5); NEUTROPHILS % 87.9 % (39.0-77.0); PLATELET COUNT 222 10^3/UL (140-415); RED BLOOD COUNT 3.24 10^6/ul (4.20-5.40); RED CELL DISTRIBUTION WIDTH 14.2 % (11.5-14.5); WHITE BLOOD COUNT 12.2 10^3/ul (4.8-10.8)
[2016-06-17 08:28] LABS: POTASSIUM 3.5 mmol/L (3.5-5.1)
[2016-06-17 08:31] LABS: CREATININE 0.76 mg/dl (0.44-1.00)
[2016-06-17 08:32] LABS: CALCIUM 8.5 mg/dl (8.4-10.2); MAGNESIUM 1.9 mg/dl (1.7-2.5); PHOSPHORUS 3.4 mg/dl (2.5-4.9)
[2016-06-17] MEDS: NYSTATIN 30 GM POWDER BTL TOP SCH ×2 (08:52→21:05)
[2016-06-17] MEDS: HYDROXYCHLOROQUINE 200 MG TAB PO SCH (08:52)
[2016-06-17] MEDS: HEPARIN 5,000 UNIT/0.5 ML VIAL SC SCH ×2 (08:53→20:31)
[2016-06-17] MEDS ORDERED: ASPIRIN (EC) 325 MG TAB PO SCH (09:00)
[2016-06-17 13:28] LABS: THYROID STIMULATING HORMONE 1.28 MIU/L (0.465-4.680)
--- NOTE | 2016-06-17 15:12 | PN ---
Date/Time of Note Date/Time of Note DATE: 06/17/16 TIME: 15:07 Assessment/Plan VTE Prophylaxis VTE Prophylaxis Intervention: other (xarelto) Lines/Catheters IV Catheter Type (from Nrs): PICC Line Central line still needed: Yes Urinary Cath still in place: No Assessment/Plan Assessment/Plan 1. Chest pain, musculoskeletal, negative stress test in 03/2016 2. Chronic cough, no significant pathology on CT chest, Robitassin prn 3. Leukocytosis. follow up with CBC 4. History of multiple pulmonary embolisms and possible lupus anticoagulant. Continue Xarelto for now. Again, CTA of the chest was negative for pulmonary embolism. We will also check anticonvulsant antiphospholipid antibody test as well. See if I can confirm or deny that she may have lupus anticoagulant. 5. History of lupus. Continue Plaquenil for now. 6. Breast rash. Continue p.o. Benadryl for now and also will add Nystatin powder. 7. Chronic pain syndrome and drug-seeking behavior. It has been explained to the patient that until she provides documentation about the needs for IV Benadryl and IV Dilaudid, which she claims she takes at home, we will be cautious with her pain medicines. For now, her vital signs are relatively stable. She is not in any overt pain symptoms right now, so we will continue with just p.r.n. morphine and [place] for now and monitor vital signs very carefully. 8. Gastrointestinal prophylaxis, proton pump inhibitor. 9. Deep venous thrombosis prophylaxis. She is on Xarelto. Subjective 24 Hr Interval Summary Free Text/Dictation chest pain all over, from cough. No sputum, no fever or chills. Exam/Review of Systems Vital Signs Vitals Vital Signs Date Time Temp Pulse Resp B/P Pulse Ox O2 Delivery O2 Flow Rate FiO2 06/17/16 12:26 100 06/17/16 12:17 98.9 20 177/105 99 Room Air 06/16/16 12:31 2.0 Intake and Output 06/16/16 06/16/16 06/17/16 15:00 23:00 07:00 Intake Total 1000 ml 400 ml Balance 1000 ml 400 ml Exam Constitutional: alert, obese, oriented, well developed Psych: nl mood/affect, no complaints Head: atraumatic, normocephalic Eyes: EOMI, PERRL, nl conjunctiva, nl lids ENMT: mucosa pink and moist, nl external ears & nose, nl lips & teeth, nl nasal mucosa & septum Neck: non-tender, supple Respiratory: clear to auscultation, normal air movement, No congested cough, No crackles/rales, No diminished breath sounds, No intercostal retraction, No labored breathing, No other, No respirations, No tactile fremitus, No wheezing Cardiovascular: nl pulses, regular rate and rhythm, No S3, No S4, No bruits, No diastolic murmur, No edema, No gallop, No irregular rhythm, No jugular venous distention (JVD), No murmurs/extra sounds, No other, No rub, No systolic murmur Gastrointestinal: nl liver, spleen, non-tender, soft, No ascites, No bowel sounds, No distended, No firm, No hepatomegaly, No mass , No other, No rebound or guarding, No splenomegaly, No surgical scars, No tender Musculoskeletal: nl extremities to inspection Extremities: normal pulses, No calf tenderness, No clubbing, No cyanosis, No edema, No other, No palpable cord, No pitting pedal edema, No tenderness Neurological: [employer] II-XII intact, nl mental status, nl speech Skin: nl turgor Lymph: nl lymph nodes Results Result Diagram: 06/17/1642 06/17/16 0642 Results 24 hrs Laboratory Tests Test 06/16/16 17:25 06/16/16 22:20 06/17/16 06:42 Creatine Kinase < 20 L < 20 L Creatine Kinase Index Creatinine Kinase MB (Mass) < 0.22 < 0.22 Troponin I < 0.012 < 0.012 Free Thyroxine 0.76 L Random Vancomycin Level < 5.0 White Blood Count 12.2 H Red Blood Count 3.24 L Hemoglobin 9.5 L Hematocrit 30.4 L Mean Corpuscular Volume 93.8 Mean Corpuscular Hemoglobin 29.3 Mean Corpuscular Hemoglobin Concent 31.3 L Red Cell Distribution Width 14.2 Platelet Count 222 # Mean Platelet Volume 10.1 Neutrophils % 87.9 H Lymphocytes % 6.0 L Monocytes % 5.6 Eosinophils % 0.0 Basophils % 0.1 Nucleated Red Blood Cells % 0.0 Neutrophils # 10.8 H Lymphocytes # 0.7 L Monocytes # 0.7 Eosinophils # 0.0 Basophils # 0.0 Nucleated Red Blood Cells # 0.0 Sodium Level 141 Potassium Level 3.5 Chloride Level 107 Carbon Dioxide Level 26 Anion Gap 12 Blood Urea Nitrogen 17 Creatinine 0.76 Glucose Level 84 Hemoglobin A1c 5.1 Calcium Level 8.5 Phosphorus Level 3.4 Magnesium Level 1.9 Triglycerides Level 58 Cholesterol Level 178 LDL Cholesterol, Calculated 108 HDL Cholesterol 58 Cholesterol/HDL Ratio 3.0 Thyroid Stimulating Hormone (TSH) 1.280 Medications Medications Current Medications Ondansetron HCl (Zofran Inj) 4 mg Q6H PRN IV NAUSEA AND/OR VOMITING; Start at 16:30 Acetaminophen (Tylenol Tab) 650 mg Q6H PRN PO PAIN LEVEL 1-3 OR FEVER; Start at 16:30 Acetaminophen/ Hydrocodone Bitart ([place] (5/325)) 1 tab Q6H PRN PO MODERATE PAIN LEVEL 4-6 Last administered on 06/17/16 07:31; Admin Dose 1 TAB; Start at 16:30 Morphine Sulfate (morphine) 2 mg Q4H PRN IV SEVERE PAIN LEVEL 7-10 Last administered on 06/17/16 14:24; Admin Dose 2 MG; Start 06/16/16 at 16:30 Docusate Sodium (Colace) 100 mg Q12H PRN PO CONSTIPATION; Start 06/16/16 at 16: 30 Magnesium Hydroxide (Milk Of Mag) 30 ml DAILY PRN PO CONSTIPATION; Start at 16:30 Sodium Biphosphate/ Sodium Phosphate (Fleet Enema) 133 ml DAILY PRN [place] CONSTIPATION; Start 06/16/16 at 16:30 Pantoprazole (Protonix Tab) 40 mg DAILY@06 PO Last administered on 06/17/16 06 :45; Admin Dose 40 MG; Start 06/17/16 at 06:00 Heparin Sodium (Porcine) 5000 unit 5,000 unit Q12 SC Last administered on 22:00; Admin Dose 5,000 UNIT; Start 06/16/16 at 21:00 Sodium Chloride (1/2 NS) 1,000 ml @ 75 mls/hr [id number] IV Last administered on 06/17/16 05:37; Admin Dose 75 MLS/HR; Start 06/16/16 at 16:17 Lorazepam (Ativan) 0.5 mg Q6H PRN IV ANXIETY; Start 06/16/16 at 16:30 Nitroglycerin (Nitroglycerin (Sl Tab) 0.4 Mg) 1 tab Q5M PRN SL ANGINA; Start at 16:30 Hydroxychloroquine Sulfate (Plaquenil) 400 mg DAILY PO Last administered on 08:52; Admin Dose 400 MG; Start 06/17/16 at 09:00 Zolpidem Tartrate (Ambien) 10 mg QHS PRN PO INSOMNIA; Start 06/16/16 at 16:30 Nystatin (Nystatin Powder) 1 applic BID TOP Last administered on 06/17/16 08: 52; Admin Dose 1 APPLIC; Start 06/16/16 at 21:00 Vancomycin HCl PER PHARMACY DOSING NOTE XX ; Start 06/16/16 at 17:30 Vancomycin HCl/ Sodium Chloride (Vancocin/NS) 250 ml @ 83.333 mls/ hr Q12H IVPB Last administered on 06/17/16 07:22; Admin Dose 83.333 MLS/HR; Start at 20:00 Diphenhydramine HCl 25 mg 25 mg Q6H PRN PO ITCHING Last administered on 07:21; Admin Dose 25 MG; Start 06/16/16 at 19:00 Levofloxacin/ Dextrose (Levaquin 750 Mg/ D5W 150 ml (Pmx)) 150 ml @ 100 mls/hr Q24H IVPB Last administered on 06/16/16 20:02; Admin Dose 100 MLS/HR; Start at 21:00 Hydralazine HCl (Apresoline) 10 mg Q4H PRN IV ELEVATED BLOOD PRESSURE Last administered on 06/17/16 12:19; Admin Dose 10 MG; Start 06/16/16 at 20:30 Phenol (Cepastat Lozenge) 1 lozenge Q1H PRN MT sore throat ; Start 06/17/16 at 10:30 Miscellaneous Information (*Rx Drug Level Order Reminder*) 1 ONCE ONCE XX ; Start 06/18/16 at 07:00; Stop 06/18/16 at 07:01 JILLIAN COLORADO MD Jun 17, 2016 15:12
[2016-06-17] MEDS: CEPASTAT LOZENGE MT PRN ×2 (16:07→17:53)
[2016-06-17] MEDS ORDERED: GUAIFENESIN 20 MG/ML 5ML CUP PO PRN (16:30)
[2016-06-17] MEDS: RIVAROXABAN 20 MG TABLET PO SCH (17:53)
[2016-06-18] MEDS: morphine 2 MG INJ IV PRN (00:04)
[2016-06-18 00:36] VITALS: PULSE 96
[2016-06-18] MEDS: LEVOFLOXACIN 750MG/D5W (PMX) 150 ML IVPB SCH (00:38)
[2016-06-18] MEDS: morphine 4 MG/ML VIAL IV PRN ×4 (00:38→15:17)
[2016-06-18] MEDS: HYDROCODONE/APAP (5/325) TAB PO PRN (01:05)
[2016-06-18] MEDS: CEPASTAT LOZENGE MT PRN (01:05)
[2016-06-18 04:35] VITALS: PULSE 94
[2016-06-18] MEDS: PANTOPRAZOLE (EC) 40 MG TAB PO SCH (07:04)
[2016-06-18 07:55] VITALS: BP 170/98; RESP 18
[2016-06-18 08:18] LABS: ADD SCAN DIFF NO
[2016-06-18 08:21] LABS: EOSINOPHILS # 0.3 10^3/ul (0.0-0.5); EOSINOPHILS % 3.6 % (0.0-7.0); HEMATOCRIT 29.5 % (37.0-47.0); HEMOGLOBIN 9.2 g/dl (12.0-16.0); LYMPHOCYTES # 0.8 10^3/ul (0.8-2.9); LYMPHOCYTES % 10.5 % (15.0-51.0); MEAN CORPUSCULAR HEMOGLOBIN 29.5 pg (29.0-33.0); MEAN CORPUSCULAR HGB CONC 31.2 g/dl (32.0-37.0); MEAN CORPUSCULAR VOLUME 94.6 fl (82.0-101.0); MEAN PLATELET VOLUME 10.1 fl (7.4-10.4); MONOCYTE # 0.7 10^3/ul (0.3-0.9); MONOCYTES % 9.1 % (0.0-11.0); NEUTROPHIL # 6.1 10^3/ul (1.6-7.5); NEUTROPHILS % 75.9 % (39.0-77.0); PLATELET COUNT 197 10^3/UL (140-415); RED BLOOD COUNT 3.12 10^6/ul (4.20-5.40); RED CELL DISTRIBUTION WIDTH 14.6 % (11.5-14.5)
[2016-06-18 08:36] VITALS: PULSE 117
[2016-06-18] MEDS: HEPARIN 5,000 UNIT/0.5 ML VIAL SC SCH (09:00)
[2016-06-18] MEDS: DIPHENHYDRAMINE 25 MG CAP PO PRN (09:20)
[2016-06-18] MEDS: NYSTATIN 30 GM POWDER BTL TOP SCH (09:20)
[2016-06-18] MEDS: HYDROXYCHLOROQUINE 200 MG TAB PO SCH (09:20)
[2016-06-18] MEDS: VANCOMYCIN 1.25 GM in SOD CHLORIDE 0.9% 250 ML IVPB SCH (09:20)
[2016-06-18] MEDS: SOD CHLORIDE 0.45% 1,000 ML IV SCH (09:24)
[2016-06-18 12:13] LABS: POTASSIUM 3.5 mmol/L (3.5-5.1)
[2016-06-18 12:16] LABS: CREATININE 0.69 mg/dl (0.44-1.00)
[2016-06-18 12:17] LABS: CALCIUM 8.2 mg/dl (8.4-10.2)
[2016-06-18 12:20] VITALS: BP 167/98; PULSE 86; RESP 18
--- NOTE | 2016-06-18 13:45 | DS ---
Date/Time of Note Date/Time of Note DATE: 06/18/16 TIME: 13:40 Discharge Summary Admission/Discharge Info Admit Date/Time Jun 16, 2016 at 13:02 Discharge Date/Time Final Diagnosis 1. Chest pain, musculoskeletal, negative stress test in 03/2016 2. Chronic cough, no significant pathology on CT chest, Robitassin prn 3. Leukocytosis. resolved 4. History of multiple pulmonary embolisms and possible lupus anticoagulant. Continue Xarelto for now. A 5. History of lupus. Continue Plaquenil 6. Breast rash. Continue p.o. Benadryl for now and also will add Nystatin powder. 7. Chronic pain syndrome and drug-seeking behavior. Patient Condition: Stable Hospital Course A 35-year-old female with past medical history of questionable osteomyelitis of the C and T-spine regions on IV antibiotics at home for chronic treatment for the last 2 years, history of chronic pain syndrome and drug-seeking behavior, multiple blood clots including pulmonary embolism status post IVC filter placement, on Xarelto, history of lupus on Plaquenil, who presents with chest pain that began earlier today, substernal in nature. Apparently, she traveled from [place] to [place] 3 days prior to arrival. When she was arriving at that time, she apparently developed chest pain and had chest pain again today. No nausea, vomiting. No fevers or chills. No upper or lower GI bleeding, no diarrhea, no constipation. No headaches or neck pain. When she came into the ER today, she was found with a white blood cell count of 14.3 and her BNP is slightly high at 600. She had a CTA performed that was negative for any pulmonary embolism, but there are some areas of possible pneumonitis in the right upper lung area as well. The patient was last here at our hospital from 04/10/2016 to 04/15/2016. At that time, she was treated for chest pain, ruled out for acute coronary syndrome including having a negative cardiac stress test at that time. Of note, her last echocardiogram was in 02/2016. At that time, showed lower limits of normal systolic function, normal left ventricular cavity size, normal left ventricular wall thickness, ejection fraction of 50% to 55%, mild enlargement of the left atrium, mitral valve leaflets appear mildly thickened. The chest pain is considered musculoskeletal, that has been stable, no need for further cardiac work up. Leukocytosis, there is no obvious evidence of infection. It resolved. Patient is on vancomycin in the last two years or so. Follow up with PCP. Home Meds Reported Medications Vancomycin HCl (Vancomycin HCl) 500 Mg Vial.port, 500 MG IMPLANTED Q12 ON GOING TREATMENT PER PT 04/10/16 Diphenhydramine Hcl* (Benadryl*) 50 Mg Cap, 50 MG IV Q4 Y for ITCHING, CAP 04/10/16 Zolpidem Tartrate* (Ambien*) 10 Mg Tablet, 10 MG PO QHS Y for INSOMNIA, TAB 03/09/16 Hydromorphone Hcl* (Dilaudid*) 2 Mg Tablet, 2 MG IV* Q4 Y for PAIN, TAB 03/09/16 Rivaroxaban* (Xarelto*) 20 Mg Tablet, 20 MG PO WITH DINNER, TAB 03/09/16 Hydroxychloroquine Sulfate* (Plaquenil*) 200 Mg Tab, 400 MG PO DAILY, TAB 03/09/16 Discontinued Reported Medications Prednisone* (Prednisone*) 5 Mg Tab, 5 MG PO DAILY, TAB 03/09/16 Discontinued Scripts Levofloxacin* (Levaquin*) 500 Mg Tablet, 500 MG PO DAILY for 5 Days, TAB Prov:JILLIAN COLORADO MD 04/15/16 Follow-up Plan PCP in two weeks Pending Labs Laboratory Tests Test 06/18/16 07:00 White Blood Count 8.010^3/ul (4.8-10.8) Red Blood Count 3.1210^6/ul (4.20-5.40) Hemoglobin 9.2g/dl (12.0-16.0) Hematocrit 29.5% (37.0-47.0) Mean Corpuscular Volume 94.6fl (82.0-101.0) Mean Corpuscular Hemoglobin 29.5pg (29.0-33.0) Mean Corpuscular Hemoglobin Concent 31.2g/dl (32.0-37.0) Red Cell Distribution Width 14.6% (11.5-14.5) Platelet Count 72014^3/UL (140-415) Mean Platelet Volume 10.1fl (7.4-10.4) Neutrophils % 75.9% (39.0-77.0) Lymphocytes % 10.5% (15.0-51.0) Monocytes % 9.1% (0.0-11.0) Eosinophils % 3.6% (0.0-7.0) Basophils % 0.0% (0.0-2.0) Nucleated Red Blood Cells % 0.0/100WBC (0.0-0.0) Neutrophils # 6.110^3/ul (1.6-7.5) Lymphocytes # 0.810^3/ul (0.8-2.9) Monocytes # 0.710^3/ul (0.3-0.9) Eosinophils # 0.310^3/ul (0.0-0.5) Basophils # 0.010^3/ul (0.0-0.1) Nucleated Red Blood Cells # 0.010^3/ul (0.0-0.0) Sodium Level 138mmol/L (135-144) Potassium Level 3.5mmol/L (3.5-5.1) Chloride Level 105mmol/L (97-110) Carbon Dioxide Level 26mmol/L (21-31) Anion Gap 11 (8-16) Blood Urea Nitrogen 11mg/dl (7-20) Creatinine 0.69mg/dl (0.44-1.00) Glucose Level 75mg/dl (70-220) Calcium Level 8.2mg/dl (8.4-10.2) Vancomycin Level Trough 15.7ug/ml (10.0-20.0) JILLIAN COLORADO MD Jun 18, 2016 13:45
[2016-06-18 16:44] VITALS: BP 148/89; RESP 18
== END 2016-06-18 16:32 | disposition home or self-care (01) ==
LOC: E/R 09:42 → MS4 13:02
PROVIDERS: ADMIT Internal Medicine; ATTEND Internal Medicine
DX: R07.9 Chest pain, unspecified (principal); R05 Cough; D72.829 Elevated white blood cell count, unspecified; M32.9 Systemic lupus erythematosus, unspecified; R21 Rash and other nonspecific skin eruption; G89.4 Chronic pain syndrome; Z76.5 Malingerer [conscious simulation]; Z86.711 Personal history of pulmonary embolism; Z88.6 Allergy status to analgesic agent; Z88.2 Allergy status to sulfonamides; Z88.8 Allergy status to other drugs, medicaments and biological substances; Z91.048 Other nonmedicinal substance allergy status; Z91.041 Radiographic dye allergy status; Z90.49 Acquired absence of other specified parts of digestive tract
CPT/HCPCS: 36415; 71275; 80048; 80053; 80061; 80202; 80307; 82550; 82553; 83036; 83735; 83880; 84100; 84439; 84443; 84484; 84703; 85025; 85610; 85613; 85730; 93005; 94664; 96361; 96365; 96366; 96372; 96374; 96375; 96376; 99285; G0378; J0360; J1170; J1200; J1644; J1956; J2060; J2270; J2930; J3370; J7030; J7050; Q9967

== ENCOUNTER 2017-02-18 09:11 | Emergency (ER) | payer MEDICARE ==
[~2017-02-18] VITALS: Ht 160 cm; Wt 87.8 kg
[~2017-02-18 09:11] MED LIST changes: -HYDR2TAB15 IV*; +HYDR2TAB36 IV*; -LEVO500T72 PO; -PRED5 PO
[2017-02-18 09:15] VITALS: Ht 160 cm; Wt 87.8 kg
[2017-02-18] MEDS ORDERED: ONDANSETRON 4 MG INJ IV STA ×2 (09:29→11:22)
[2017-02-18] MEDS ORDERED: HYDROmorphONE 1 MG/ML SYG IV STA ×2 (09:29→11:22)
--- NOTE | 2017-02-18 10:02 | RADRPT ---
PROCEDURE: XR Chest. CLINICAL INDICATION: The chest pain. TECHNIQUE: Single frontal view. COMPARISON: 04/10/2016. FINDINGS: The right arm PICC line is in satisfactory position with the tip in the lower superior vena cava. Th e lungs are clear. The heart size is normal. There is no pleural effusion. There is no pneumothorax. IMPRESSION: 1. Right arm PICC line in satisfactory position. 2. Clear lungs. 3. Otherwise unremarkable chest radiograph. RPTAT: QQ .Kenan Linares MD, MD Date Time Electronically viewed and signed by .Kenan Linares MD, on 02/18/2017 10:01 .R/
[2017-02-18 10:56] LABS: ABNORMAL IP MESSAGE 1; BASOPHILS % 0.3 % (0.0-2.0); HEMATOCRIT 37.6 % (37.0-47.0); LYMPHOCYTES # 0.5 10^3/ul (0.8-2.9); LYMPHOCYTES % 4.9 % (15.0-51.0); MEAN CORPUSCULAR HEMOGLOBIN 26.1 pg (29.0-33.0); MEAN CORPUSCULAR HGB CONC 31.9 g/dl (32.0-37.0); MEAN CORPUSCULAR VOLUME 81.7 fl (82.0-101.0); MONOCYTE # 0.1 10^3/ul (0.3-0.9); MONOCYTES % 0.8 % (0.0-11.0); NEUTROPHILS % 93.6 % (39.0-77.0); PLATELET COUNT 317 10^3/UL (140-415); RED CELL DISTRIBUTION WIDTH 14.5 % (11.5-14.5); WHITE BLOOD COUNT 9.6 10^3/ul (4.8-10.8)
[2017-02-18 10:58] LABS: POSITIVE DIFF @See below
[2017-02-18 11:11] LABS: ANION GAP 14 (8-16); BLOOD UREA NITROGEN 15 mg/dl (7-20); CALCIUM 9.2 mg/dl (8.4-10.2); CARBON DIOXIDE 22 mmol/L (21-31); CHLORIDE 111 mmol/L (97-110); CREATININE 0.86 mg/dl (0.44-1.00); GLUCOSE 109 mg/dl (70-220); POTASSIUM 3.9 mmol/L (3.5-5.1); SODIUM 143 mmol/L (135-144)
[2017-02-18 11:25] LABS: INR 0.98; PROTIME 13.1 Sec (11.9-14.9)
[2017-02-18 11:26] LABS: PARTIAL THROMBOPLASTIN TIME 27.3 Sec (25.0-35.0)
[2017-02-18 11:27] LABS: TROPONIN-I < 0.012 ng/ml (0.00-0.12)
[2017-02-18 12:05] VITALS: BP 156/107; PULSE 103; RESP 16; TEMP 98.1
--- NOTE | 2017-02-18 12:35 | ERD ---
ER Documentation Chief Complaint Chief Complaint Pt presents with CP and SOB X 1.5 hrs. Pt with hx of 9 PE's. HPI Patient is a 36-year-old female with lupus and previous pulmonary embolism he says "I think I might have a PE". The patient is complaining of chest pain. She has had chest pain that started this morning. The patient says that she is already on blood thinning medicines with Xarelto and has an IVC filter. She said that she started with chest pain and shortness of breath this morning. If left-sided pain with no radiation. Sharp in nature. She is not on control pills. She does not smoke. She has a PICC line and says that she gives herself Dilaudid and Benadryl through the PICC line at home. Upon review of old medical records this is the patient's third visit to the ER since 2016 but reviewed the emergency department information exchange system shows visits to 14 separate emergency departments over the past 1 year. ROS All systems reviewed and are negative except as per history of present illness. Medications Home Meds Reported Medications Vancomycin HCl (Vancomycin HCl) 500 Mg Vial.port, 500 MG IMPLANTED Q12 ON GOING TREATMENT PER PT 04/10/16 Diphenhydramine Hcl* (Benadryl*) 50 Mg Cap, 50 MG IV Q4 Y for ITCHING, CAP 04/10/16 Zolpidem Tartrate* (Ambien*) 10 Mg Tablet, 10 MG PO QHS Y for INSOMNIA, TAB 03/09/16 Hydromorphone Hcl* (Dilaudid*) 2 Mg Tablet, 2 MG IV* Q4 Y for PAIN, TAB 03/09/16 Rivaroxaban* (Xarelto*) 20 Mg Tablet, 20 MG PO WITH DINNER, TAB 03/09/16 Hydroxychloroquine Sulfate* (Plaquenil*) 200 Mg Tab, 400 MG PO DAILY, TAB 03/09/16 Allergies Allergies: Coded Allergies: adhesive tape (Verified Allergy, Severe, 04/10/16) chlorhexidine (Verified Allergy, Severe, anaphylaxis, 03/10/16) ketorolac (Verified Allergy, Severe, anaphylaxis, 03/10/16) NSAIDS (Non-Steroidal Anti-Inflamma (Verified Allergy, Intermediate, hives , 03/10/16) Sulfa (Sulfonamide Antibiotics) (Verified Allergy, Intermediate, hives, ) aspirin (Verified Allergy, Unknown, 04/13/16) Uncoded Allergies: CT CONTRAST (Allergy, Severe, 04/10/16) ARTIFICIAL SWEATNERS (Allergy, Unknown, 04/10/16) PMhx/Soc History of Surgery: Yes (colycystectomy, appendectomy, ivc filters, ports ) Anesthesia Reaction: No Hx Neurological Disorder: No Hx Respiratory Disorders: Yes (9 pulmonary embolisms in the past ) Hx Cardiac Disorders: Yes (loop recorder ) Hx Psychiatric Problems: No Hx Miscellaneous Medical Probl: Yes (LUPUS, HEMOLYTIC ANEMIA) Hx Alcohol Use: No Hx Substance Use: No Hx Tobacco Use: No Smoking Status: Never smoker FmHx Family History: coronary disease Physical Exam Vitals Vital Signs Date Time Temp Pulse Resp B/P Pulse Ox O2 Delivery O2 Flow Rate FiO2 02/18/17 12:05 98.1 103 16 156/107 95 Room Air 02/18/17 09:40 Nasal Cannula 2 02/18/17 09:15 99.2 113 24 168/112 97 Physical Exam Const: No acute distress Head: Atraumatic Eyes: Normal Conjunctiva ENT: Normal External Ears, Nose and Mouth. Neck: Full range of motion..~ No meningismus. Resp: Clear to auscultation bilaterally Cardio: Tachycardic rate without murmur Abd: Soft, non tender, non distended. Normal bowel sounds Skin: No petechiae or rashes Back: No midline or flank tenderness Ext: No cyanosis, or edema Neur: Awake and alert Psych: Normal Mood and Affect Result Diagram: 02/18/17 1023 02/18/17 1023 Results 24 hrs Laboratory Tests Test 02/18/17 10:23 White Blood Count 9.610^3/ul Red Blood Count 4.6010^6/ul Hemoglobin 12.0g/dl Hematocrit 37.6% Mean Corpuscular Volume 81.7fl Mean Corpuscular Hemoglobin 26.1pg Mean Corpuscular Hemoglobin Concent 31.9g/dl Red Cell Distribution Width 14.5% Platelet Count 55267^3/UL Mean Platelet Volume 10.0fl Neutrophils % 93.6% Lymphocytes % 4.9% Monocytes % 0.8% Eosinophils % 0.0% Basophils % 0.3% Nucleated Red Blood Cells % 0.0/100WBC Neutrophils # 9.010^3/ul Lymphocytes # 0.510^3/ul Monocytes # 0.110^3/ul Eosinophils # 0.010^3/ul Basophils # 0.010^3/ul Nucleated Red Blood Cells # 0.010^3/ul Prothrombin Time 13.1Sec Prothrombin Time Ratio 1.0 INR International Normalized Ratio 0.98 Activated Partial Thromboplast Time 27.3Sec Sodium Level 143mmol/L Potassium Level 3.9mmol/L Chloride Level 111mmol/L Carbon Dioxide Level 22mmol/L Anion Gap 14 Blood Urea Nitrogen 15mg/dl Creatinine 0.86mg/dl Glucose Level 109mg/dl Calcium Level 9.2mg/dl Troponin I < 0.012ng/ml Current Medications Medications (Trade) Dose Ordered Sig/Omega Route PRN Reason Start Time Stop Time Status Last Admin Dose Admin Hydromorphone HCl (Dilaudid) 1 mg ONCE STAT IV 02/18/17 09:29 02/18/17 09:30 DC 02/18/17 10:34 Ondansetron HCl (Zofran Inj) 4 mg ONCE STAT IV 02/18/17 09:29 02/18/17 09:30 DC 02/18/17 10:35 Hydromorphone HCl (Dilaudid) 1 mg ONCE STAT IV 02/18/17 11:22 02/18/17 11:23 DC 02/18/17 11:30 Ondansetron HCl (Zofran Inj) 4 mg ONCE STAT IV 02/18/17 11:22 02/18/17 11:23 DC 02/18/17 11:29 Procedures/MDM EKG read by me: Rate/Rhythm: Regular rate and rhythm at a rate of 86 Intervals: Normal Impression: No evidence of ischemia or arrhythmia Chest x-ray negative per radiology. Patient is a 36-year-old female with previous PE and lupus who presents with chest pain. Her oxygen saturation was 97% on room air. She was tachycardic. Her laboratory studies are basically normal with a negative troponin. EKG shows no signs of ischemia or arrhythmia. Chest x-ray shows no pneumonia or pneumothorax. It is possible the patient has a pulmonary embolism at this time however I did speak to her at length and she is already being treated with Xarelto and has an IVC filter. I felt like the risks of doing a another CT scan of the chest that with the benefit as she has had multiple CT scans of her chest and abdomen over the past few years. She agrees. We discussed the possibility of admission versus discharge. At this point she would prefer to be discharged and I feel this is likely a reasonable option. In any case is that does not appear to be a large pulmonary embolism and she is in no acute distress and is not hypoxic. The patient will be discharged home but will need to follow-up closely with a primary doctor within 24 hours. She can return sooner for any worsening symptoms. Shared decision-making was used and the patient agreed to the plan. Departure Diagnosis: Primary Impression: Chest pain Chest pain type: unspecified Qualified Code: R07.9 - Chest pain, unspecified type Condition: Fair Patient Instructions: Chest Pain, Uncertain Cause Referrals: Dr. Medrano Additional Instructions: Call your primary care doctor TOMORROW for an appointment during the next 1-2 days.See the doctor sooner or return here if your condition worsens before your appointment time. NATACHA BLAIR MD Feb 18, 2017 12:35
== END 2017-02-18 12:05 | disposition home or self-care (01) ==
LOC: E/R 09:11
DX: R07.9 Chest pain, unspecified (principal)
CPT/HCPCS: 36415; 71010; 80048; 84484; 85025; 85610; 85730; 93005; 96374; 96375; 96376; 99285; J1170; J2405

== ENCOUNTER 2017-02-20 18:06 | Observation (INO) | payer MEDICARE ==
[~2017-02-20] VITALS: Ht 160 cm; Wt 87.2 kg
[~2017-02-20 18:06] MED LIST changes: -RIVA20TA PO; +RIVA20TA5 PO
[2017-02-20 18:28] LABS: BASOPHILS % 0.1 % (0.0-2.0); HEMATOCRIT 35.7 % (37.0-47.0); HEMOGLOBIN 11.5 g/dl (12.0-16.0); LYMPHOCYTES # 0.6 10^3/ul (0.8-2.9); LYMPHOCYTES % 5.9 % (15.0-51.0); MEAN CORPUSCULAR HEMOGLOBIN 26.3 pg (29.0-33.0); MEAN CORPUSCULAR HGB CONC 32.2 g/dl (32.0-37.0); MEAN CORPUSCULAR VOLUME 81.7 fl (82.0-101.0); MEAN PLATELET VOLUME 9.2 fl (7.4-10.4); MONOCYTE # 0.1 10^3/ul (0.3-0.9); MONOCYTES % 0.9 % (0.0-11.0); NEUTROPHIL # 9.8 10^3/ul (1.6-7.5); NEUTROPHILS % 92.7 % (39.0-77.0); PLATELET COUNT 314 10^3/UL (140-415); RED BLOOD COUNT 4.37 10^6/ul (4.20-5.40); RED CELL DISTRIBUTION WIDTH 14.7 % (11.5-14.5); WHITE BLOOD COUNT 10.6 10^3/ul (4.8-10.8)
--- NOTE | 2017-02-20 18:33 | RADRPT ---
PROCEDURE: CT Brain. CLINICAL INDICATION: Left sided facial droop. TECHNIQUE: Multiple contiguous axial CT images of the brain were obtained without the administrati on of intravenous contrast. Coronal and sagittal reconstructions were also performed. DICOM images are available. CTDIvol (mGy): 42.56; Total Exam DLP (mGy-cm): 720.23. One or more of the following dose reduction techniques were utilized: - Automated exposure control. - Adjustment of the mA and/or kV according to patient size. - Use of iterative reconstruction technique. COMPARISON: 02/19/2017. FINDINGS: The ventricles are not enlarged. There is no mass effect or midline shift. There is no intracranial hemorrhage or extra-axial fluid collection. The still-white matter differentiation is well maintain ed. The posterior fossa is unremarkable. The paranasal sinuses and mastoid air cells are clear. The calvarium is intact. Extracalvarial sof t tissues are unremarkable. IMPRESSION: No evidence of acute intracranial pathology. Call report: Imaging findings discussed with Dr. Capps at 1830 hours. RPTAT: QQ .Leisa Heller MD, Date Time Electronically viewed and signed by .Leisa Heller MD, on 02/20/2017 18:33 .T/
[2017-02-20] MEDS ORDERED: VAN120L IV (18:40)
[2017-02-20] MEDS ORDERED: CARI350T PO (18:40)
--- NOTE | 2017-02-20 18:41 | RADRPT ---
PROCEDURE: XR Chest. Stroke CLINICAL INDICATION: 02/18/2017. TECHNIQUE: Single frontal chest x-ray. COMPARISON: None. FINDINGS: There is a right PICC line with tip in the SVC. Heart is normal in size.. There is no congestive he art failure.. There is hypoventilation with minimal right basilar atelectasis.. There is no pleural effusion. There is no pneumothorax. The osseous structures are unremarkable. IMPRESSION: Right PICC line. Hypoventilation with minimal right basilar atelectasis. RPTAT: HMVK .Neal Godoy MD, Date Time Electronically viewed and signed by .Neal Godoy MD, on 02/20/2017 18:41 .K/
[2017-02-20 18:45] LABS: ALANINE AMINOTRANSFERASE 31 IU/L (13-69); ALBUMIN/GLOBULIN RATIO 1.33; ALKALINE PHOSPHATASE 152 IU/L (42-121); ANION GAP 16 (8-16); ASPARTATE AMINO TRANSFERASE 22 IU/L (15-46); BILIRUBIN,INDIRECT 0.2 mg/dl (0-1.1); BILIRUBIN,TOTAL 0.2 mg/dl (0.2-1.3); BLOOD UREA NITROGEN 20 mg/dl (7-20); CALCIUM 9.1 mg/dl (8.4-10.2); CARBON DIOXIDE 23 mmol/L (21-31); CHLORIDE 110 mmol/L (97-110); CREATINE KINASE 147 IU/L (23-200); CREATININE 1.02 mg/dl (0.44-1.00); GLUCOSE 106 mg/dl (70-220); POTASSIUM 3.9 mmol/L (3.5-5.1); SODIUM 145 mmol/L (135-144)
[2017-02-20 18:53] LABS: CK-MB 0.94 ng/ml (0.0-2.4)
[2017-02-20 18:59] LABS: TROPONIN-I < 0.012 ng/ml (0.00-0.12)
[2017-02-20] MEDS ORDERED: HYDROmorphONE 1 MG/ML SYG IV STA ×2 (19:22→20:04)
[2017-02-20] MEDS ORDERED: ONDANSETRON 4 MG INJ IV STA (19:22)
[2017-02-20] MEDS ORDERED: DIPHENHYDRAMINE 50 MG INJ IV ONE (19:30)
[2017-02-20] MEDS ORDERED: ACETAMINOPHEN 325 MG TAB PO PRN ×2 (21:00→22:30)
[2017-02-20] MEDS ORDERED: ONDANSETRON 4 MG INJ IV PRN ×2 (21:00→22:30)
--- NOTE | 2017-02-20 21:07 | STROKE ---
Date/Time of Note Date/Time of Note DATE: 02/20/17 TIME: 23:04 Patient Information General Patient location: emergency Arrival Date Age 36 Gender female Weight 85.91 kg Vital Signs Vital Signs Vital Signs Date Time Temp Pulse Resp B/P Pulse Ox O2 Delivery O2 Flow Rate FiO2 02/20/17 18:45 98.0 101 19 170/134 98 Room Air Patient History Current Medications Allergies: Coded Allergies: adhesive tape (Verified Allergy, Severe, 02/20/17) chlorhexidine (Verified Allergy, Severe, anaphylaxis, 02/20/17) ketorolac (Verified Allergy, Severe, anaphylaxis, 02/20/17) NSAIDS (Non-Steroidal Anti-Inflamma (Verified Allergy, Intermediate, hives , 02/20/17) Sulfa (Sulfonamide Antibiotics) (Verified Allergy, Intermediate, hives, ) aspirin (Verified Allergy, Unknown, 02/20/17) Uncoded Allergies: CT CONTRAST (Allergy, Severe, 04/10/16) ARTIFICIAL SWEATNERS (Allergy, Unknown, 04/10/16) Labs Hematology Labs Hematology Test 02/20/17 18:20 White Blood Count 10.610^3/ul (4.8-10.8) Red Blood Count 4.3710^6/ul (4.20-5.40) Hemoglobin 11.5g/dl (12.0-16.0) Hematocrit 35.7% (37.0-47.0) Mean Corpuscular Volume 81.7fl (82.0-101.0) Mean Corpuscular Hemoglobin 26.3pg (29.0-33.0) Mean Corpuscular Hemoglobin Concent 32.2g/dl (32.0-37.0) Red Cell Distribution Width 14.7% (11.5-14.5) Platelet Count 18156^3/UL (140-415) Mean Platelet Volume 9.2fl (7.4-10.4) Neutrophils % 92.7% (39.0-77.0) Lymphocytes % 5.9% (15.0-51.0) Monocytes % 0.9% (0.0-11.0) Eosinophils % 0.0% (0.0-7.0) Basophils % 0.1% (0.0-2.0) Nucleated Red Blood Cells % 0.0/100WBC (0.0-0.0) Neutrophils # 9.810^3/ul (1.6-7.5) Lymphocytes # 0.610^3/ul (0.8-2.9) Monocytes # 0.110^3/ul (0.3-0.9) Eosinophils # 0.010^3/ul (0.0-0.5) Basophils # 0.010^3/ul (0.0-0.1) Nucleated Red Blood Cells # 0.010^3/ul (0.0-0.0) Chemistry Labs Chemistry Test 02/20/17 18:20 Sodium Level 145mmol/L (135-144) Potassium Level 3.9mmol/L (3.5-5.1) Chloride Level 110mmol/L (97-110) Carbon Dioxide Level 23mmol/L (21-31) Anion Gap 16 (8-16) Blood Urea Nitrogen 20mg/dl (7-20) Creatinine 1.02mg/dl (0.44-1.00) Glucose Level 106mg/dl (70-220) Hemoglobin A1c 5.1% (0-5.9) Calcium Level 9.1mg/dl (8.4-10.2) Total Bilirubin 0.2mg/dl (0.2-1.3) Direct Bilirubin 0.00mg/dl (0.00-0.20) Indirect Bilirubin 0.2mg/dl (0-1.1) Aspartate Amino Transf (AST/SGOT) 22IU/L (15-46) Alanine Aminotransferase (ALT/SGPT) 31IU/L (13-69) Alkaline Phosphatase 152IU/L (42-121) Creatine Kinase 147IU/L (23-200) Creatine Kinase Index 0.6 Creatinine Kinase MB (Mass) 0.94ng/ml (0.0-2.4) Troponin I < 0.012ng/ml (0.00-0.12) Total Protein 7.0g/dl (6.1-8.1) Albumin 4.0g/dl (3.3-4.9) Globulin 3.00g/dl (1.3-3.2) Albumin/Globulin Ratio 1.33 History & Physical History of Present Illness 36 W PMH Lupus and PEs on Xarelto. Patient had acute L facial droop today. LKW was 1738 PST. NCHCT normal. Her facial droop has now resolved. Patient reports she had chest pain and SOB today then a felt a "pop" and her entire L side felt weak. She feels her face is still droopy and her LUE and LLE are weak. NIH Stroke Scale NIH Stroke Scale Total Score: 6 Date/Time Recorded DATE: 02/20/17 TIME: 23:04 Submitted By Regino Wellington t-PA Imaging Review Date/Time Imaging Reviewed DATE: 02/20/17 TIME: 23:04 t-PA Administration Recommendation: No Weight 85.91 kg Recommedation submitted by Regino Wellington Reason t-PA not Recommended Contraindicated due to Xarelto Recommendations Impression Diagnosis 36 YO W with possible ischemic stroke with new L hemiparesis and dysarthria. Not an IV tPA candidate as on Xarelto. No LVO suspected per negative VAN screen. Her LUE drift is not present upon patient being distracted and her facial droop looks functional. Her dysarthria is gone and later present upon formal testing of speech. There is concern for malingering based on the distractability of her exam deficits as well as repeated requests for opiates, benzos. Recommendation - Swallow testing at bedside then continue home Xarelto - Would start with MRI Brain to see if patient had a stroke. If symptoms still present through completion of MRI Brain and MRI Brain not showing stroke, stroke is less likely - If stroke on MRI Brain would complete stroke studies with MRA Head/Neck, TTE with bubble, tele, EKG, LDL, A1c. Would potentially need follow-up cerebral angio and CSF sampling if concerned for [employer] vasculitis in setting of Lupus - Needs PT, OT, SP - Local Neuro consult to guide further recs REGINO WELLINGTON MD Feb 20, 2017 21:07
--- NOTE | 2017-02-20 21:14 | ERD ---
ER Documentation Chief Complaint Chief Complaint LEFT SIDED WEAKNESS - HX OF STROKE HPI This is a 36-year-old female with a significant past medical history of lupus, remote osteomyelitis that received treatment in May 2016 with IV antibiotics through PICC line of T1 through T7 which she indicated was a result of a MediPort infection. 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 She has had 2 IVC filters placed in 2011 after her second pulmonary embolism. The patient indicates that her last known normal time was at 5:48 PM when she had a sudden onset of a left-sided facial droop slurred speech and began drooling. She denies any chest pain or pressure that radiates to the neck arm back or jaw. She denies any weakness of her upper or lower extremities. She denied a headache or neck pain. She states she has never had any similar symptoms in the past. She indicates she is compliant with all of her medications. She states she had visited her father in [place] roughly 2 weeks ago but denies any swelling of her lower extremities and no shortness of breath at rest or exertion. She denies any hemoptysis hematemesis or melanotic stools. She states she takes Dilaudid 2 mg every 4 hours for pain as a result of her lupus. She denies any fever shaking or chills. She denies any loss of sensation or tingling of her face. ROS All systems reviewed and are negative except as per history of present illness. Medications Home Meds Reported Medications Carisoprodol* (Soma*) 350 Mg Tablet, 350 MG PO TID Y for MUSCLE SPASMS, TAB 02/20/17 Vancomycin Hcl* (Vancomycin Hcl* Liq) 8.33 Mg/Ml Soln, 1000 MG IV Q12, ML 02/20/17 Diphenhydramine Hcl* (Benadryl*) 50 Mg Cap, 50 MG IV Q4 Y for ITCHING, CAP 04/10/16 Hydromorphone Hcl* (Dilaudid*) 2 Mg Tablet, 2 MG IV* Q4 Y for PAIN, TAB 03/09/16 Rivaroxaban* (Xarelto*) 20 Mg Tablet, 20 MG PO WITH DINNER, TAB 03/09/16 Hydroxychloroquine Sulfate* (Plaquenil*) 200 Mg Tab, 400 MG PO DAILY, TAB 03/09/16 Discontinued Reported Medications Vancomycin HCl (Vancomycin HCl) 500 Mg Vial.port, 500 MG IMPLANTED Q12 ON GOING TREATMENT PER PT 04/10/16 Zolpidem Tartrate* (Ambien*) 10 Mg Tablet, 10 MG PO QHS Y for INSOMNIA, TAB 03/09/16 Allergies Allergies: Coded Allergies: adhesive tape (Verified Allergy, Severe, 02/20/17) chlorhexidine (Verified Allergy, Severe, anaphylaxis, 02/20/17) ketorolac (Verified Allergy, Severe, anaphylaxis, 02/20/17) NSAIDS (Non-Steroidal Anti-Inflamma (Verified Allergy, Intermediate, hives , 02/20/17) Sulfa (Sulfonamide Antibiotics) (Verified Allergy, Intermediate, hives, ) aspirin (Verified Allergy, Unknown, 02/20/17) Uncoded Allergies: CT CONTRAST (Allergy, Severe, 04/10/16) ARTIFICIAL SWEATNERS (Allergy, Unknown, 04/10/16) PMhx/Soc History of Surgery: Yes (colycystectomy, appendectomy, ivc filters, ports ) Anesthesia Reaction: No Hx Neurological Disorder: No Hx Respiratory Disorders: Yes (9 pulmonary embolisms in the past ) Hx Cardiac Disorders: Yes (loop recorder ) Hx Psychiatric Problems: No Hx Miscellaneous Medical Probl: Yes (LUPUS, HEMOLYTIC ANEMIA, CVA 2017) Hx Alcohol Use: No Hx Substance Use: No Hx Tobacco Use: No Smoking Status: Never smoker Physical Exam Vitals Vital Signs Date Time Temp Pulse Resp B/P Pulse Ox O2 Delivery O2 Flow Rate FiO2 02/20/17 18:45 98.0 101 19 170/134 98 Room Air 02/20/17 18:08 98.0 106 19 187/121 97 Physical Exam Constitutional:Well-developed. Well-nourished. HEENT:Normocephalic. Atraumatic.Pupils were equal round reactive to light. Moist mucous membranes.No tonsillar exudates. Neck: No nuchal rigidity. No lymphadenopathy. No posterior cervical spine tenderness or step-offs. Respiratory: Not using accessory muscles of respiration.Lungs were clear to auscultation bilaterally. No rhonchi. No rales. No wheezing. Cardiovascular: Regular rate regular rhythm.No murmurs. No rubs were appreciated.S1, S2 normal. Distal pulses are palpable 2+ bilaterally. GI: Abdomen was soft. Nontender. Non Distended. No pulsatile abdominal masses or bruits. No rebound. No guarding. Bowel sounds were present and normal. Muscle skeletal: Full range of motion of both the upper and lower extremities bilaterally.Normal muscle tone.No assymetrical calf tenderness or swelling. Skin: No petechia, no purpura. No lesions on the palms or the soles of the feet. No maculopapular rash. NEURO: Patient was alert, awake, orientated x3. Gait observed and normal with no ataxia.Speech not slurred but patient did have a left-sided facial droop. NIH stroke scale was 6 with a pronator drift of the left upper extremity. Result Diagram: 02/20/17181902/20/171819 Results 24 hrs Laboratory Tests Test 02/20/17 18:20 White Blood Count 10.610^3/ul Red Blood Count 4.3710^6/ul Hemoglobin 11.5g/dl Hematocrit 35.7% Mean Corpuscular Volume 81.7fl Mean Corpuscular Hemoglobin 26.3pg Mean Corpuscular Hemoglobin Concent 32.2g/dl Red Cell Distribution Width 14.7% Platelet Count 75361^3/UL Mean Platelet Volume 9.2fl Neutrophils % 92.7% Lymphocytes % 5.9% Monocytes % 0.9% Eosinophils % 0.0% Basophils % 0.1% Nucleated Red Blood Cells % 0.0/100WBC Neutrophils # 9.810^3/ul Lymphocytes # 0.610^3/ul Monocytes # 0.110^3/ul Eosinophils # 0.010^3/ul Basophils # 0.010^3/ul Nucleated Red Blood Cells # 0.010^3/ul Sodium Level 145mmol/L Potassium Level 3.9mmol/L Chloride Level 110mmol/L Carbon Dioxide Level 23mmol/L Anion Gap 16 Blood Urea Nitrogen 20mg/dl Creatinine 1.02mg/dl Glucose Level 106mg/dl Hemoglobin A1c 5.1% Calcium Level 9.1mg/dl Total Bilirubin 0.2mg/dl Direct Bilirubin 0.00mg/dl Indirect Bilirubin 0.2mg/dl Aspartate Amino Transf (AST/SGOT) 22IU/L Alanine Aminotransferase (ALT/SGPT) 31IU/L Alkaline Phosphatase 152IU/L Creatine Kinase 147IU/L Creatine Kinase Index 0.6 Creatinine Kinase MB (Mass) 0.94ng/ml Troponin I < 0.012ng/ml Total Protein 7.0g/dl Albumin 4.0g/dl Globulin 3.00g/dl Albumin/Globulin Ratio 1.33 Current Medications Medications (Trade) Dose Ordered Sig/Omega Route PRN Reason Start Time Stop Time Status Last Admin Dose Admin Hydromorphone HCl (Dilaudid) 2 mg ONCE STAT IV 02/20/17 19:22 02/20/17 19:23 DC 02/20/17 19:48 Ondansetron HCl (Zofran Inj) 4 mg ONCE STAT IV 02/20/17 19:22 02/20/17 19:23 DC 02/20/17 19:48 Diphenhydramine HCl (Benadryl) 50 mg ONCE ONCE IV 02/20/17 19:30 02/20/17 19:31 DC 02/20/17 19:48 Hydromorphone HCl (Dilaudid) 2 mg ONCE STAT IV 02/20/17 20:04 02/20/17 20:05 DC 02/20/17 20:19 Ondansetron HCl (Zofran Inj) 4 mg ER BRIDGE PRN IV NAUSEA AND/OR VOMITING 02/20/17 21:00 02/21/17 20:59 Acetaminophen (Tylenol Tab) 650 mg ER BRIDGE PRN PO MILD PAIN/FEVER 02/20/17 21:00 02/21/17 20:59 Procedures/MDM This was a 36-year-old female who presented to the emergency department with strokelike symptoms with a last known normal time at 5:48 PM roughly 30 minutes prior to arrival. The patient was immediately placed on a cardiac/vascular sonographer continuous pulse oximetry and IV access was established by nursing staff. Upon my evaluation the patient was not a TPA candidate as she is currently on Xarelto and her symptoms began to significantly improve during my evaluation. She had a CT scan of her head or and reviewed by myself and the radiologist which showed no intracerebral hemorrhage mass-effect or midline shift. The telemetry neurologist Dr. Tovar kindly evaluated the patient. The patient will be admitted to the hospitalist to undergo an MRI evaluation for a TIA. The patient received aspirin in the emergency department due to an allergy. The patient was requesting Dilaudid and Benadryl. She received the first dose in the ER however no further opiates were given to the patient at this time she did appear to have lingering-like behavior. However given that she had an NIH stroke scale of 6 she did have neurological findings that would warrant further evaluation for possible TIA. 12 Lead EKG tracing ordered and reviewed by myself showed: Normal sinus rhythm of 88 bpm and no arrhythmia. [place] interval normal. QRS duration normal. No ST segment elevation No ST segment depression. No changes consistent with acute ischemia. Departure Diagnosis: Primary Impression: TIA (transient ischemic attack) Transient cerebral ischemia type: unspecified Qualified Code: G45.9 - Transient cerebral ischemia, unspecified type CHARI WILLINGHAM Feb 20, 2017 21:14
[2017-02-20 21:16] VITALS: TEMP 98
[2017-02-20 21:29] LABS: INR 0.96; PROTIME 12.9 Sec (11.9-14.9)
[2017-02-20 21:30] LABS: PARTIAL THROMBOPLASTIN TIME 23.4 Sec (25.0-35.0)
[2017-02-20 21:39] VITALS: PULSE 103
[2017-02-20 21:48] VITALS: Ht 160 cm; Wt 87.2 kg
[2017-02-20 22:02] VITALS: BP 177/118; PULSE 108; RESP 18
[2017-02-20] MEDS ORDERED: NACL 0.9% 3 ML SYG IV SCH (22:30)
[2017-02-20] MEDS: HYDROXYCHLOROQUINE 200 MG TAB PO SCH (22:30)
[2017-02-20] MEDS ORDERED: DOCUSATE SODIUM 100 MG CAP PO PRN (22:30)
[2017-02-20] MEDS ORDERED: hydrALAzine 20 MG INJ IV PRN (23:30)
[2017-02-20 23:51] VITALS: BP 177/102; RESP 20
[2017-02-20] MEDS: RIVAROXABAN 20 MG TABLET PO SCH (23:53)
[2017-02-20] MEDS: morphine 2 MG INJ IV PRN (23:53)
[2017-02-21] VITALS (11 sets, daily range): BP systolic 133–159; BP diastolic 70–90; PULSE 65–110; RESP 18–20
[2017-02-21] MEDS ORDERED: VANCOMYCIN 1 GM (PMX) 250 ML IVPB SCH (01:00)
[2017-02-21] MEDS: morphine 2 MG INJ IV PRN ×4 (04:19→17:43)
[2017-02-21] MEDS ORDERED: VANCOMYCIN IV PER PHARMACY XX SCH (06:30)
[2017-02-21] MEDS: DIPHENHYDRAMINE 50 MG INJ IV PRN ×2 (08:44→20:29)
[2017-02-21] MEDS: HYDROXYCHLOROQUINE 200 MG TAB PO SCH (08:44)
[2017-02-21] MEDS: VANCOMYCIN 1 GM (PMX) 250 ML IVPB SCH ×2 (08:45→20:29)
--- NOTE | 2017-02-21 09:17 | HP ---
Date/Time of Note Date/Time of Note DATE: 02/21/17 TIME: 08:45 Assessment/Plan VTE Prophylaxis VTE Prophylaxis Intervention: other Lines/Catheters IV Catheter Type (from Nrsg): PICC Line Assessment/Plan Chief Complaint/Hosp Course This is a 36 year female being admitted to the telemetry floor for: #1 Left sided weakness: Rule out stroke versus malingering #2 history of DVTs PEs, #3 lupus, #4 hemolytic anemia, #5 chronic osteomyelitis of C6-3 7 and T1 through T3 #6 chronic pain syndrome #7 Implantable Loop recorder Plan: This is a 36-year-old female who is presenting with symptoms of possible acute stroke. At the current time I as well as a ER physician and the tele- neurologist are not 100% convinced that this is a definite acute stroke. There appears to be a component of malingering involved. She has been admitted in the past and requested IV Benadryl and IV Dilaudid. She was asked regarding her medical paperwork for Benadryl and Dilaudid as well as for osteomyelitis and her chronic Vanco and she said she would provided from her doctor who was at [facility] in [place]. We will need to ask her his name and see if we can get in touch with him. On previous admissions she was asked to provide paperwork but no paperwork was provided regarding her medical conditions. At the current time I do not see any indication to give her Dilaudid as when I walked into the room she was sleeping comfortably. I will hold Dilaudid at this time. I am not 100% certain regarding this chronic osteomyelitis I will continue her vancomycin she states she needs Benadryl with it which I am very hesitant to give but in the setting of it being a possible infection I will started for right now until we are able to reassess her in the a.m. and further review the medical chart. We will also proceed with the neurologist recommendations as indicated: Swallow testing at bedside then continue home Xarelto. Would start with MRI Brain to see if patient had a stroke. If symptoms still present through completion of MRI Brain and MRI Brain not showing stroke, stroke is less likely. If stroke on MRI Brain would complete stroke studies with MRA Head/Neck, TTE with bubble, tele, EKG, LDL, A1c. Would potentially need follow-up cerebral angio and CSF sampling if concerned for [employer] vasculitis in setting of Lupus. Needs PT, OT, SP. Local Neuro consult to guide further recs Of note, I did review her old labs that were ordered and apparently patient's lupus anticoagulant was not detected. Also she states that she has an implantable loop recorder however I have reviewed x-rays from this admission as well as a previous admissions and I do not see them on the x-ray nor mentioned in the official reports. I do have a strong suspicion that she is displaying malingering as well as drug- seeking behavior as the previous doctor on her last admission also mentioned. The last though with her history that she has mentioned we will go ahead with the MRI of the brain and then proceed further as indicated. Of note she also brought a lot of her belongings with her, and I am suspicious that she may be self-medicating herself as well, will need to monitor for this. Further treatment be implemented as per the clinical course Problems: HPI/ROS Admit Date/Time Admit Date/Time Feb 20, 2017 at 20:58 Hx of Present Illness Complaint: Sudden onset of left-sided facial droop and slurred speech This is a 36-year-old female with a significant past medical history of lupus, remote osteomyelitis that received treatment in May 2016 with IV antibiotics through PICC line of T1 through T7 which she indicated was a result of a MediPort infection. 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 She has had 2 IVC filters placed in 2011 after her second pulmonary embolism. The patient indicates that her last known normal time was at 5:48 PM when she had a sudden onset of a left-sided facial droop slurred speech and began drooling. She denies any chest pain or pressure that radiates to the neck arm back or jaw. She denies any weakness of her upper or lower extremities. She denied a headache or neck pain. She states she has never had any similar symptoms in the past. She indicates she is compliant with all of her medications. She states she had visited her father in [place] roughly 2 weeks ago but denies any swelling of her lower extremities and no shortness of breath at rest or exertion. She denies any hemoptysis hematemesis or melanotic stools. She states she takes Dilaudid 2 mg every 4 hours for pain as a result of her lupus. She denies any fever shaking or chills. She denies any loss of sensation or tingling of her face. After being evaluated in the ED by ED physician tele-neurology consultation was ordered. As per the the neurologist assessment: with possible ischemic stroke with new L hemiparesis and dysarthria. Not an IV tPA candidate as on Xarelto. No LVO suspected per negative VAN screen. Her LUE drift is not present upon patient being distracted and her facial droop looks functional. Her dysarthria is gone and later present upon formal testing of speech. There is concern for malingering based on the distractability of her exam deficits as well as repeated requests for opiates, benzos. The neurologist recommendation was to admit the patient and obtain an MRI of the brain. If the MRI was positive then proceed to further neuro workup. Upon my examination of the patient, I did not visualize any left-sided facial droop. Allergies: SHE HAS MULTIPLE ALLERGIES INCLUDIN. ARTIFICIAL SWEETENERS. 2. CT CONTRAST. 3. NSAIDS. 4. SULFA MEDICATIONS. 5. ADHESIVE TAPE. 6. ASPIRIN. 7. CHLORHEXIDINE. 8. TORADOL. : medications: See AUGUST GUTIERREZ Const: As per HPI Eyes : No pain discharge or redness or change in visual acuity ENT: As per HPI Respiratory: No shortness of breath, cough, sputum, wheezing, or pleuritic pain Cardiovascular: No chest pain, palpitation, PND, or edema GI : no change in appetite, abdominal pain, nausea, vomiting, diarrhea, constipation, or change in the color his stool Genitourinary: No dysuria, hematuria, flank pain , discharge or CVA tenderness Musculoskeletal: No joint pain, back pain, neck pain, restricted range of motion in neck or joints Skin: No rash, bruising or hives Neuro: As per HPI Endocrine: No polyuria, polydipsia, temperature intolerance Psych: No hallucination, depression, anxiety or suicidal ideation PMH/Family/Social Past Medical History Multiple PEs, lupus, hemolytic anemia, osteomyelitis of C6-3 7 and T1 through T3 Past Surgical History IVC filter, cholecystectomy, appendectomy, tonsillectomy, implanted loop recorder Family History Significant Family History: no pertinent family hx Social History Alcohol Use: none Smoking Status: Never smoker Drug Use: none Exam/Review of Systems Vital Signs Vitals Vital Signs Date Time Temp Pulse Resp B/P Pulse Ox O2 Delivery O2 Flow Rate FiO2 02/21/17 08:00 98.1 65 18 133/74 97 02/20/17 22:02 Room Air Intake and Output 02/20/17 02/20/17 02/21/17 14:59 22:59 06:59 Intake Total 400 ml Balance 400 ml Exam Exam General: I walked into the room patient was sleeping comfortably. She was easily arousable. She does not appear in any acute distress or pain. HEENT: Atraumatic, normocephalic. The pupils are equal, round and reactive. Extraocular motor are intact Neck: Supple with full range of motion. No rigidity or meningismus Chest: Nontender Lungs: Clear to auscultation bilaterally no crackles rales or wheezing Heart: Normal S1-S2, Regular rhythm and rate. No murmur, S3, or S4 Abdomen: Soft , nontender, nondistended , bowel sounds are present. No guarding no rebound tenderness , No masses or organomegaly. No costovertebral temporal angle mass Extremities: Normal to inspection, no edema no cyanosis Neurologic: Normal mental status, speech normal, while talking to the patient I did not observe left-sided facial droop however when I asked her about it the droop "reappeared", strength 5 out of 5 in both right upper and lower extremities, strength 3 out of 5 in the left upper and lower extremity. Please see telemetry neurology note for their physical exam Additional Comments PROCEDURE: CT Brain. CLINICAL INDICATION: Left sided facial droop. TECHNIQUE: Multiple contiguous axial CT images of the brain were obtained without the administration of intravenous contrast. Coronal and sagittal reconstructions were also performed. DICOM images are available. CTDIvol (mGy): 42.56; Total Exam DLP (mGy-cm): 720.23. One or more of the following dose reduction techniques were utilized: - Automated exposure control. - Adjustment of the mA and/or kV according to patient size. - Use of iterative reconstruction technique. COMPARISON: 02/19/2017. FINDINGS: The ventricles are not enlarged. There is no mass effect or midline shift. There is no intracranial hemorrhage or extra-axial fluid collection. The still- white matter differentiation is well maintained. The posterior fossa is unremarkable. The paranasal sinuses and mastoid air cells are clear. The calvarium is intact. Extracalvarial soft tissues are unremarkable. IMPRESSION: No evidence of acute intracranial pathology. Call report: Imaging findings discussed with Dr. Willingham at 1830 hours. RPTAT: QQ .Leisa Heller MD, Date Time Electronically viewed and signed by .Leisa Heller MD, MD on 02/20/2017 18:33 .T/ CC: CHARI WILLINGHAM PROCEDURE: XR Chest. Stroke CLINICAL INDICATION: 02/18/2017. TECHNIQUE: Single frontal chest x-ray. COMPARISON: None. FINDINGS: There is a right PICC line with tip in the SVC. Heart is normal in size.. There is no congestive heart failure.. There is hypoventilation with minimal right basilar atelectasis.. There is no pleural effusion. There is no pneumothorax. The osseous structures are unremarkable. IMPRESSION: Right PICC line. Hypoventilation with minimal right basilar atelectasis. RPTAT: HMVK .Neal Godoy MD, Date Time Electronically viewed and signed by .Neal Godoy MD, on 02/20/2017 18:41 .K/ CC: CHARI WILLINGHAM 12 Lead EKG tracing ordered and reviewed by myself showed: Normal sinus rhythm of 88 bpm and no arrhythmia. LA interval normal. QRS duration normal. No ST segment elevation No ST segment depression. No changes consistent with acute ischemia. Labs Result Diagram: 02/20/17181902/20/171819 Medications Medications Current Medications Ondansetron HCl (Zofran Inj) 4 mg Q6H PRN IV NAUSEA AND/OR VOMITING; Start 02/20/17 at 22:30 Acetaminophen (Tylenol Tab) 650 mg Q6H PRN PO PAIN LEVEL 1-3 OR FEVER; Start 02/20/17 at 22:30 Docusate Sodium (Colace) 100 mg Q12H PRN PO CONSTIPATION; Start 02/20/17 at 22: 30 Hydroxychloroquine Sulfate (Plaquenil) 400 mg DAILY PO ; Start 02/20/17 at 22:30 Morphine Sulfate (morphine) 2 mg Q4H PRN IV pain Last administered on t 04:19; Admin Dose 2 MG; Start 02/20/17 at 23:30 Hydralazine HCl (Apresoline) 10 mg Q4H PRN IV SBP > 220 and/or DBP > 120; Start 02/20/17 at 23:30 Diphenhydramine HCl 50 mg 50 mg BID PRN IV ITCHING; Start 02/21/17 at 06:30 Vancomycin HCl (Vancocin) 250 ml @ 125 mls/hr Q12H IVPB ; Start 02/21/17 at 08: 00 SHANTHI TALAVERA Feb 21, 2017 08:56
[2017-02-21] MEDS ORDERED: ALTEPLASE (CATHFLO) 2 MG INJ CATHETER ONE (10:30)
[2017-02-21] MEDS ORDERED: LORAZEPAM 2 MG INJ IV PRN (10:30)
--- NOTE | 2017-02-21 12:40 | PN ---
Date/Time of Note Date/Time of Note DATE: 02/21/17 TIME: 12:32 Assessment/Plan VTE Prophylaxis VTE Prophylaxis Intervention: SCD's Lines/Catheters IV Catheter Type (from Nrsg): PICC Line Assessment/Plan Chief Complaint/Hosp Course Assessment and plan 1. Left-sided weakness. CT scan of the brain was negative for any acute intracranial findings. Questionable malingering. MRI of the brain is pending. Patient was seen by teleneurologist who after exam also had concern for possible malingering. Will get PT/OT/ST for now. Discussed plan with RN. Follow-up MRI of the brain. 2. 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 Patient does report following up at clinic with neurosurgeon for this issue. Will follow up with outpatient records concerning this. On vancomycin 3. Chronic pain syndrome. There is also questionable pain seeking behavior. Will get pain management physician to follow. History of lupus. Resume on Plaquenil. 4. History of multiple pulmonary embolism. Continue on Xarelto for now. Disposition and plan: Follow-up with an MRI of the brain. Will get PT/OT/ST evaluation. Pain management physician to follow. Will discharge if no other acute findings and plan to set up patient for home health services upon discharge. Discussed plan of care with Problems: Subjective 24 Hr Interval Summary Free Text/Dictation did see patient. was seen with some left sided weakness, barely able to move left upper and lower extremity. However Patient was reportedly able to get up with nurse to bathroom. no s/s of distress Exam/Review of Systems Vital Signs Vitals Vital Signs Date Time Temp Pulse Resp B/P Pulse Ox O2 Delivery O2 Flow Rate FiO2 02/21/17 12:00 89 02/21/17 11:45 98.0 20 136/70 97 02/20/17 22:02 Room Air Intake and Output 02/20/17 02/20/17 02/21/17 14:59 22:59 06:59 Intake Total 400 ml Balance 400 ml Exam Constitutional: alert Psych: nl mood/affect Head: normocephalic Eyes: nl conjunctiva Neck: non-tender, supple Respiratory: clear to auscultation Cardiovascular: regular rate and rhythm Gastrointestinal: non-tender, soft Musculoskeletal: other (left sided weakness) Skin: nl turgor, rash or lesions Results Result Diagram: 02/20/170 02/20/17 1820 Results 24 hrs Laboratory Tests Test 02/20/17 18:20 02/20/17 21:05 White Blood Count 10.6 Red Blood Count 4.37 Hemoglobin 11.5 L Hematocrit 35.7 L Mean Corpuscular Volume 81.7 L Mean Corpuscular Hemoglobin 26.3 L Mean Corpuscular Hemoglobin Concent 32.2 Red Cell Distribution Width 14.7 H Platelet Count 314 Mean Platelet Volume 9.2 Neutrophils % 92.7 H Lymphocytes % 5.9 L Monocytes % 0.9 Eosinophils % 0.0 Basophils % 0.1 Nucleated Red Blood Cells % 0.0 Neutrophils # 9.8 H Lymphocytes # 0.6 L Monocytes # 0.1 L Eosinophils # 0.0 Basophils # 0.0 Nucleated Red Blood Cells # 0.0 Sodium Level 145 H Potassium Level 3.9 Chloride Level 110 Carbon Dioxide Level 23 Anion Gap 16 Blood Urea Nitrogen 20 Creatinine 1.02 H Glucose Level 106 Hemoglobin A1c 5.1 Calcium Level 9.1 Total Bilirubin 0.2 Direct Bilirubin 0.00 Indirect Bilirubin 0.2 Aspartate Amino Transf (AST/SGOT) 22 Alanine Aminotransferase (ALT/SGPT) 31 Alkaline Phosphatase 152 H Creatine Kinase 147 Creatine Kinase Index 0.6 Creatinine Kinase MB (Mass) 0.94 Troponin I < 0.012 Total Protein 7.0 Albumin 4.0 Globulin 3.00 Albumin/Globulin Ratio 1.33 Prothrombin Time 12.9 Prothrombin Time Ratio 1.0 INR International Normalized Ratio 0.96 Activated Partial Thromboplast Time 23.4 L Medications Medications Current Medications Ondansetron HCl (Zofran Inj) 4 mg Q6H PRN IV NAUSEA AND/OR VOMITING; Start 02/20/17 at 22:30 Acetaminophen (Tylenol Tab) 650 mg Q6H PRN PO PAIN LEVEL 1-3 OR FEVER; Start 02/20/17 at 22:30 Docusate Sodium (Colace) 100 mg Q12H PRN PO CONSTIPATION; Start 02/20/17 at 22: 30 Hydroxychloroquine Sulfate (Plaquenil) 400 mg DAILY PO Last administered on 08:44; Admin Dose 400 MG; Start 02/20/17 at 22:30 Morphine Sulfate (morphine) 2 mg Q4H PRN IV pain Last administered on 08:43; Admin Dose 2 MG; Start 02/20/17 at 23:30 Hydralazine HCl (Apresoline) 10 mg Q4H PRN IV SBP > 220 and/or DBP > 120; Start 02/20/17 at 23:30 Diphenhydramine HCl 50 mg 50 mg BID PRN IV ITCHING Last administered on 08:44; Admin Dose 50 MG; Start 02/21/17 at 06:30 Vancomycin HCl (Vancocin) 250 ml @ 125 mls/hr Q12H IVPB Last administered on 02/21/17 08:45; Admin Dose 125 MLS/HR; Start 02/21/17 at 08:00 MICHA GUERRERO Feb 21, 2017 12:39
[2017-02-21] MEDS ORDERED: LORAZEPAM 2 MG INJ IV ONE (15:00)
--- NOTE | 2017-02-21 15:13 | RADRPT ---
Echocardiogram Report Patient Name: CLAUDIA FERREIRA Gender: Female Date: 1980 Study Date: 21-Feb-2017 Cancer Program Director: Andrey [facility] Location: [address] Ref. Physician: SHANTHI TALAVERA Quality: Adequate Procedures: Transthoracic echocardiogram with complete 2D, M-Mode, and doppler examination. Indications: Possible stroke. 2D/M Mode Doppler Measurement Value Normal Ranges Measurement Value Normal Ranges LVIDd 2D 4.9 3.5 - 5.6 cm MV E Peak David 1.2 m/sec LVIDs 2D 3.7 2.1 - 4.1 cm MV A Peak David 1.0 m/sec FS 2D 23.9 % MV E/A 1.2 LVPWd 2D 1.3 0.6 - 1.1 cm MV Decel Time 141 msec IVSd 2D 1.3 0.6 - 1.1 cm MV E/A 1.2 IVS/LVPW 2D 1.0 TR Peak David 2.4 m/sec AoR Diam 2D 2.5 2.0 - 3.7 cm TR Peak PG 23.0 mmHg LA/Ao 2D 2 0 - 1 RVSP 33.0 mmHg EDV 2D 118.0 cm3 ESV 2D 51.9 cm3 LA Dimen 2D 4.1 2.3 - 4.0 cm Findings Left Ventricle: Normal left ventricular systolic function. Normal left ventricular cavity size. Moderate concentric left ventricular hypertrophy. Ejection fraction is visually estimated at 5560 %. Abnormal Diastolic Function. Right Ventricle: Normal right ventricular size. Normal right ventricular systolic function. Left Atrium: There is mild enlargement of left atrium. Right Atrium: The right atrium is normal in size. Atrial Septum: Bubble study was performed with and with out valsalva indicating no evidence of intra atrial shunt. Mitral Valve: Mild mitral leaflet calcification. Mild mitral annular calcification. Trace mitral regurgitation. Aortic Valve: Normal appearance of the aortic valve. No significant aortic stenosis or insufficiency. Tricuspid Valve: Normal appearance of the tricuspid valve. Estimated peak PA systolic pressure 33 mmHg. There is mild tricuspid regurgitation. Pulmonic Valve: Pulmonic valve not well visualized. There is trace pulmonic regurgitation. Pericardium: Normal pericardium with no significant pericardial effusion. Aorta: Normal aortic root. IVC: Normal size and normal respiratory collapse consistent with normal right atrial pressure. Conclusions 1.Normal left ventricular systolic function. Normal left ventricular cavity size. Moderate concentric left ventricular hypertrophy. Ejection fraction is visually estimated at 55-60 %. Abnormal Diastolic Function. 2.There is mild enlargement of left atrium. 3.Mild mitral leaflet calcification. Mild mitral annular calcification. Trace mitral regurgitation. 4.Normal appearance of the aortic valve. No significant aortic stenosis or insufficiency. 5.Normal appearance of the tricuspid valve. Estimated peak PA systolic pressure 33 mmHg. There is mild tricuspid regurgitation. 6.Normal size and normal respiratory collapse consistent with normal right atrial pressure. Electronically Signed By: Grant Burciaga 21-Feb-2017 15:13:00 -0800 Patient Name: CLAUDIA FERREIRA Study Date: 21-Feb-2017 [id number]
--- NOTE | 2017-02-21 15:59 | RADRPT ---
PROCEDURE: MRI Brain without contrast. CLINICAL INDICATION: Neurological deficit. TECHNIQUE: An MRI of the brain was performed utilizing the following sequences: Sagittal and axial T1 weighted, axial T2 weighted, axial diffusion weighted with ADC mapping, coronal GRE, sagittal an d axial FLAIR. COMPARISON: Brain CT 02/20/2017. FINDINGS: No diffusion weighted abnormalities are seen to suggest the presence of acute ischemia or recent inf arct. No hypointense signal abnormalities are seen on the GRE images to suggest the presence of blo od degradation products. There is no evidence of intracranial hemorrhage, mass effect, or midline s hift. No extra-axial fluid collections are seen. The ventricles and sulci are mildly enlarged indica tive of volume loss. There are several scattered foci of T2 FLAIR hyperintensity in the periventricular, deep, and subcor tical white matter measuring up to 7 mm in the left periventricular white matter which demonstrate v ertical orientation in respect to lateral ventricle. There is also involvement of the callososeptal interface. These findings are most concerning for demyelinating disease. consideration includes demy elinating disease, vasculopathy, early microvascular ischemic disease, sequela from prior traumatic or inflammatory insults. No abnormal intracranial vascular flow void is noted. The visualized paranasal sinuses demonstrate m ild scattered mucosal thickening mainly in ethmoid air cells and maxillary sinuses. There is thinnin g of bilateral lens indicative of prior lens replacement. IMPRESSION: 1. Several scattered white matter signal abnormality which are most concerning for demyelinating di sease. Other differential consideration includes vasculopathy, early microvascular ischemic disease, sequela from prior traumatic or inflammatory insults. Follow-up brain MRI with contrast can be obta ined for further evaluation. 2. No acute intracranial hemorrhage, infarction or mass. 3. Mild generalized cerebral volume loss. RPTAT: HH .Pranay Quinones MD, MD Date Time Electronically viewed and signed by .Pranay Quinones MD, MD on 02/21/2017 15:59 .N/
[2017-02-21] MEDS: RIVAROXABAN 20 MG TABLET PO SCH (17:43)
[2017-02-22] VITALS (14 sets, daily range): BP systolic 145–160; BP diastolic 81–95; PULSE 75–131; RESP 17–20
[2017-02-22] MEDS: morphine 2 MG INJ IV PRN ×2 (03:14→07:43)
[2017-02-22] MEDS ORDERED: LORAZEPAM 2 MG INJ IV PRN (07:00)
[2017-02-22] MEDS: DIPHENHYDRAMINE 50 MG INJ IV PRN ×2 (07:43→21:07)
--- NOTE | 2017-02-22 08:04 | CONS ---
Date/Time of Note Date/Time of Note DATE: 02/22/17 TIME: 08:01 Assessment/Plan Assessment/Plan Additional Assessment/Plan Chronic pain syndrome History of lupus MRI appears to be questionable for demyelination Obesity Chronic osteomyelitis by history Long conversation with her and I told her unfortunately I cannot give her IV Dilaudid based on her history and physical findings. Therefore I will switch to p.o. medications discontinue morphine discontinue Benadryl. I have asked her to produce medical records and a name and phone number her pain management doctor in [place] so I can make contact with him. Respective at that I do not believe there is an indication for such high doses of pain control medications once again based on her physical findings. Consultation Date/Type/Reason Admit Date/Time Feb 20, 2017 at 20:58 Type of Consultation: Pain management Hx of Present Illness Sheila pain management consultation this 36-year-old female who states she has a history of osteomyelitis of her lower sacral spine and is scheduled to have a definitive surgical procedure within the next month at [facility] in [place]. Patient describes the pain is lumbosacral spine without radiations in the lower extremity but she states she has pain everywhere. She describes her pain as throbbing grade 10/10 however the patient appears to be somewhat comfortable at this time. As an outpatient he says she is receiving 4 mg Dilaudid IV every 4 hours she takes it 3-4 times a day as well as Benadryl IV push she does this herself states that she receives these medications by her primary care physician pain management doctor from [place]. States that she has gone through the drug enforcement administration here with her pain management physician who has flown out from [place] to make arrangements for her to receive pain control medications intravenously. Morphine 2 mg IV every 4 hours states that is not controlling her discomfort and Benadryl 50 mg IV twice daily as needed. States is interfering with her physical function social relations mood and sleeping patterns overall function is impaired denies nausea vomiting constipation itching mental cloudiness sweating fatigue drowsiness. Denies oversedation in the past denies alcohol or drug use or street drug abuse states she has never been intoxicated she does not abuse her current medications by her history. Patient did not appear to be unkempt she is requesting early renewals in a different medication from morphine to Dilaudid she is not negotiating with me for p.o. pain medications she seems to be somewhat insistent that she wants intravenous and that p.o. medications do not control her pain. Therefore she is requesting change in route of administration states she has never had DUIs or been arrested by police. There she has never been admitted to a drug rehab. Social History Alcohol Use: none Smoking Status: Never smoker Drug Use: none Exam/Review of Systems Vital Signs Vitals Vital Signs Date Time Temp Pulse Resp B/P Pulse Ox O2 Delivery O2 Flow Rate FiO2 02/22/17 04:11 81 02/22/17 03:58 98.0 18 150/81 96 02/20/17 22:02 Room Air Intake and Output 02/21/17 02/21/17 02/22/17 15:00 23:00 07:00 Intake Total 900 ml 550 ml Balance 900 ml 550 ml Exam Constitutional: alert, oriented, well developed Respiratory: clear to auscultation, normal air movement Cardiovascular: nl pulses, regular rate and rhythm Gastrointestinal: nl liver, spleen, non-tender, soft Neurological: FLASK PUSHER II-XII intact, nl mental status, nl speech, nl strength Results Result Diagram: 02/20/17181902/20/171819 Medications Medications Current Medications Ondansetron HCl (Zofran Inj) 4 mg Q6H PRN IV NAUSEA AND/OR VOMITING; Start 02/20/17 at 22:30 Acetaminophen (Tylenol Tab) 650 mg Q6H PRN PO PAIN LEVEL 1-3 OR FEVER; Start 02/20/17 at 22:30 Docusate Sodium (Colace) 100 mg Q12H PRN PO CONSTIPATION; Start 02/20/17 at 22: 30 Hydroxychloroquine Sulfate (Plaquenil) 400 mg DAILY PO Last administered on 08:44; Admin Dose 400 MG; Start 02/20/17 at 22:30 Morphine Sulfate (morphine) 2 mg Q4H PRN IV pain Last administered on 07:43; Admin Dose 2 MG; Start 02/20/17 at 23:30 Hydralazine HCl (Apresoline) 10 mg Q4H PRN IV SBP > 220 and/or DBP > 120; Start 02/20/17 at 23:30 Diphenhydramine HCl 50 mg 50 mg BID PRN IV ITCHING Last administered on 07:43; Admin Dose 50 MG; Start 02/21/17 at 06:30 Vancomycin HCl (Vancocin) 250 ml @ 125 mls/hr Q12H IVPB Last administered on 02/21/17 20:29; Admin Dose 125 MLS/HR; Start 02/21/17 at 08:00 Lorazepam (Ativan) 2 mg ONCE PRN IV prior to MRI study; Start 02/22/17 at 07:00 ; Stop 02/22/17 at 12:00 ZENY BURR Feb 22, 2017 08:04
[2017-02-22] MEDS: HYDROXYCHLOROQUINE 200 MG TAB PO SCH (08:19)
[2017-02-22] MEDS: VANCOMYCIN 1 GM (PMX) 250 ML IVPB SCH ×2 (08:19→21:08)
--- NOTE | 2017-02-22 10:30 | RADRPT ---
PROCEDURE: MRI Brain with contrast. CLINICAL INDICATION: White matter signal abnormality. Concern for demyelinating disease. TECHNIQUE: An MRI of the brain was performed utilizing the following sequences: Precontrast axial T1-weighted images were obtained. Following the uneventful administration of 10 cc Magnevist, postc ontrast axial and coronal T1-weighted images were obtained. Images were viewed on a PACS workstation . COMPARISON: Brain MRI with without contrast 02/21/2017. FINDINGS: No abnormal intraparenchymal, meningeal or ependymal enhancement is seen. Specifically no associated enhancing abnormality related to the prior white matter signal abnormalities. IMPRESSION: 1. No intracranial enhancing abnormality, specifically no associated enhancing abnormality related to the prior white matter signal abnormalities. RPTAT: UU .Pranay Quinones MD, MD Date Time Electronically viewed and signed by .Pranay Quinones MD, MD on 02/22/2017 10:30 .N/
--- NOTE | 2017-02-22 10:48 | RADRPT ---
PROCEDURE: MRI Cervical Spine with and without contrast. CLINICAL INDICATION: Intracranial white matter signal abnormality. TECHNIQUE: An MRI of the cervical spine was performed utilizing the following sequences: Sagittal and axial T1 weighted, sagittal and axial T2 weighted, sagittal T2 weighted with fat saturation. Pos tcontrast axial and sagittal T1-weighted images were obtained. 10 mL of Magnevist was administered i ntravenously. COMPARISON: No prior studies are available for comparison. FINDINGS: Multiple images are degraded by motion. There is straightening of the normal lordosis of the cervical spine. No vertebral body subluxation is seen. The vertebral bodies are normal in height. There is 6 mm T1 and T2 hyperintense focus in the C4 vertebral body which likely represent an intrao sseous hemangioma. There is otherwise no focal suspect marrow lesion. The cervical cord is normal in caliber without convincing abnormal signal intensity that can be confirmed on both axial and sagitt al images considering motion degraded images. The craniocervical junction is unremarkable. Postcontr ast images demonstrate no intra spinal canal enhancing abnormality. C2-3: The disk height and signal intensity is preserved. No focal posterior disc herniation. No spi nal canal or neural foraminal stenosis. C3-4: The disk height and signal intensity is preserved. No focal posterior disc herniation. No spi nal canal or neural foraminal stenosis. C4-5: The disk height and signal intensity is preserved. No focal posterior disc herniation. No spi nal canal or neural foraminal stenosis. C5-6: The disk height and signal intensity is preserved. No focal posterior disc herniation. No spi nal canal or neural foraminal stenosis. C6-7: The disk height and signal intensity is preserved. No focal posterior disc herniation. No spi nal canal or neural foraminal stenosis. C7-T1: The disk height is mildly to moderately decreased with disc desiccation. No focal posterior disc herniation. No spinal canal or neural foraminal stenosis. IMPRESSION: Suboptimal motion degraded study. 1. No convincing cervical spinal cord signal abnormality or enhancement. 2. Mild to moderate discogenic disease at C7-T1. 3. No significant cervical spinal canal or foraminal stenosis. 4. Straightening of the normal cervical lordosis. RPTAT: UU .Pranay Quinones MD, MD Date Time Electronically viewed and signed by .Pranay Quinones MD, MD on 02/22/2017 14:51 .N/
--- NOTE | 2017-02-22 11:14 | RADRPT ---
PROCEDURE: MRI Thoracic Spine with and without contrast. CLINICAL INDICATION: Intracranial abnormal white matter signal intensity, concern for demyelinatin g disease. TECHNIQUE: An MRI of the thoracic spine was performed utilizing the following sequences: Sagittal and axial T2 weighted, sagittal T1 weighted and sagittal T2 fat sat. Postcontrast axial and sagitta l T1-weighted images COMPARISON: None. FINDINGS: Multiple images are degraded by motion. There is a normal kyphosis of the thoracic spine. The vertebral heights and alignment are maintaine d. The marrow signal is unremarkable. The thoracic spinal cord is unremarkable in caliber without convincing abnormal signal intensity that can be confirmed on both axial and sagittal images conside ring motion degraded images. Postcontrast images demonstrate no intra spinal canal enhancing abnormality. T1-2 through T11-12: No significant disk bulge or protrusion is seen. No significant spinal canal o r foraminal stenosis. There is 1 cm right renal cyst. There is right posterior atelectasis. IMPRESSION: Suboptimal motion degraded study. 1. No convincing thoracic spinal cord abnormal signal intensity or enhancement. 2. No significant thoracic spinal canal or foraminal stenosis. RPTAT: UU .Pranay Quinones MD, MD Date Time Electronically viewed and signed by .Pranay Quinones MD, MD on 02/22/2017 11:14 .N/
--- NOTE | 2017-02-22 11:36 | CONS ---
Date/Time of Note Date/Time of Note DATE: 02/22/17 TIME: 11:28 Assessment/Plan Assessment/Plan Chief Complaint/Hosp Course 36 yo female with history of reported Lupus with multiple prior PE and TIA/ CVA history is reported. No outside records are available for review. She states she is on Xarelto and has failed many other medications. She has left sided weakness, there is no neurologic etiology for her weakness on MRI Brain, Cervical, Thoracic Spine. She is also requesting pain medications for management of lower back pain from reported osteomyelitis. Would recommend obtaining outside records for review, no other recommendations at this time. Problems: Consultation Date/Type/Reason Admit Date/Time Feb 20, 2017 at 20:58 Date of Consultation: Feb 22, 2017 Type of Consultation: Neurology Reason for Consultation Evaluation of left sided weakness left arm and leg hx of Lupus Referring Provider: MICHA GUERRERO Hx of Present Illness 36 yo female with history of reported Lupus on Xarelto for multiple PE's hx of TIA reported and prior CVA with residual right facial weakness. She now presents with complaint of left arm and leg weakness that began the day prior, no improvement since admission. MRI Brain was done without contrast concerning for demyelinating disease repeat w contrast shows no enhancing lesions. MRI Cervical and Thoracic Spine show no lesions. left arm and leg weakness Past Medical History Medical History: no pertinent history Social History Alcohol Use: none Smoking Status: Never smoker Drug Use: none Exam/Review of Systems Vital Signs Vitals Vital Signs Date Time Temp Pulse Resp B/P Pulse Ox O2 Delivery O2 Flow Rate FiO2 02/22/17 08:00 77 02/22/17 07:53 98.4 17 155/92 96 02/20/17 22:02 Room Air Intake and Output 02/21/17 02/21/17 02/22/17 15:00 23:00 07:00 Intake Total 900 ml 550 ml Balance 900 ml 550 ml Exam Constitutional: alert, obese (CN: RANDI, blinks to threat, right facial asymmetry, palate upgoing uvula midline scm/trap intact), oriented, well developed Neurological: other (CN: RANDI, VFF right facial droop Motor: Left arm and leg drift poor effort, right arm and leg full) Results Result Diagram: 02/20/17181902/20/171819 Medications Medications Current Medications Ondansetron HCl (Zofran Inj) 4 mg Q6H PRN IV NAUSEA AND/OR VOMITING; Start 02/20/17 at 22:30 Acetaminophen (Tylenol Tab) 650 mg Q6H PRN PO PAIN LEVEL 1-3 OR FEVER; Start 02/20/17 at 22:30 Docusate Sodium (Colace) 100 mg Q12H PRN PO CONSTIPATION; Start 02/20/17 at 22: 30 Hydroxychloroquine Sulfate (Plaquenil) 400 mg DAILY PO Last administered on 08:19; Admin Dose 400 MG; Start 02/20/17 at 22:30 Hydralazine HCl (Apresoline) 10 mg Q4H PRN IV SBP > 220 and/or DBP > 120; Start 02/20/17 at 23:30 Diphenhydramine HCl 50 mg 50 mg BID PRN IV ITCHING Last administered on 07:43; Admin Dose 50 MG; Start 02/21/17 at 06:30 Vancomycin HCl (Vancocin) 250 ml @ 125 mls/hr Q12H IVPB Last administered on 02/22/17 08:19; Admin Dose 125 MLS/HR; Start 02/21/17 at 08:00 Lorazepam (Ativan) 2 mg ONCE PRN IV prior to MRI study Last administered on 08:19; Admin Dose 2 MG; Start 02/22/17 at 07:00; Stop 02/22/17 at 12:00 Hydromorphone HCl (Dilaudid) 2 mg Q6H PRN PO PAIN LEVEL 8-10; Start 02/22/17 at 08:00 Miscellaneous Information (*Rx Drug Level Order Reminder*) VANCOMYCIN TROUGH ON ... ONCE ONCE XX ; Start 02/22/17 at 19:00; Stop 02/22/17 at 19:01 NORBERTO BOLAND MD Feb 22, 2017 11:36
--- NOTE | 2017-02-22 11:48 | PN ---
Date/Time of Note Date/Time of Note DATE: 02/22/17 TIME: 11:41 Assessment/Plan VTE Prophylaxis VTE Prophylaxis Intervention: SCD's Lines/Catheters IV Catheter Type (from Nrs): PICC Line Urinary Cath still in place: No Assessment/Plan Chief Complaint/Hosp Course Assessment and plan 1. Left-sided weakness. CT scan of the brain was negative for any acute intracranial findings. Questionable malingering. Patient was seen by teleneurologist who after exam also had concern for possible malingering. Will get PT/OT/ST for now. Repeat MRI of the brain with contrast showed no evidence of abnormal enhancement to suggest white matter lesion. Cervical spine MRI showed no convincing cervical spinal cord abnormality or enhancement and no evidence of osteomyelitis. There is only seen mild to moderate discogenic disease at C7-T1. Thoracic spine MRI with contrast showed no convincing thoracic spinal cord abnormal signal intensity or enhancement and no significant thoracic spinal cord or foraminal stenosis. Await PT evaluation. suspect possible malingering. Will get delinquency prevention social worker to follow. 2. 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 Patient does report following up at clinic with neurosurgeon for this issue. Patient for outpatient follow-up with this issue although it is noted that recent thoracic and cervical spinal MRI showed no evidence of osteomyelitis 3. Chronic pain syndrome. There is also questionable pain seeking behavior. Continue with pain management physician recommendations. History of lupus. Resume on Plaquenil. 4. History of multiple pulmonary embolism. Continue on Xarelto for now. Disposition and plan: suspect possible malingering. Additionally patient is refusing medical compliance and refusing laboratory draws. Physical therapy to evaluate for mobility for now. sheet ironworker to follow. Anticipate discharge within the next 24 hours Discussed plan of care with Problems: Subjective 24 Hr Interval Summary Free Text/Dictation no s/s of distress Exam/Review of Systems Vital Signs Vitals Vital Signs Date Time Temp Pulse Resp B/P Pulse Ox O2 Delivery O2 Flow Rate FiO2 02/22/17 11:32 97.9 103 19 153/93 95 02/20/17 22:02 Room Air Intake and Output 02/21/17 02/21/17 02/22/17 15:00 23:00 07:00 Intake Total 900 ml 550 ml Balance 900 ml 550 ml Exam Constitutional: alert Psych: nl mood/affect Head: normocephalic Eyes: nl conjunctiva Neck: non-tender, supple Respiratory: clear to auscultation Cardiovascular: regular rate and rhythm Gastrointestinal: non-tender, soft Musculoskeletal: other (left sided weakness) Skin: nl turgor, rash or lesions Results Result Diagram: 02/20/17181902/20/171819 Medications Medications Current Medications Ondansetron HCl (Zofran Inj) 4 mg Q6H PRN IV NAUSEA AND/OR VOMITING; Start 02/20/17 at 22:30 Acetaminophen (Tylenol Tab) 650 mg Q6H PRN PO PAIN LEVEL 1-3 OR FEVER; Start 02/20/17 at 22:30 Docusate Sodium (Colace) 100 mg Q12H PRN PO CONSTIPATION; Start 02/20/17 at 22: 30 Hydroxychloroquine Sulfate (Plaquenil) 400 mg DAILY PO Last administered on 08:19; Admin Dose 400 MG; Start 02/20/17 at 22:30 Hydralazine HCl (Apresoline) 10 mg Q4H PRN IV SBP > 220 and/or DBP > 120; Start 02/20/17 at 23:30 Diphenhydramine HCl 50 mg 50 mg BID PRN IV ITCHING Last administered on 07:43; Admin Dose 50 MG; Start 02/21/17 at 06:30 Vancomycin HCl (Vancocin) 250 ml @ 125 mls/hr Q12H IVPB Last administered on 02/22/17 08:19; Admin Dose 125 MLS/HR; Start 02/21/17 at 08:00 Lorazepam (Ativan) 2 mg ONCE PRN IV prior to MRI study Last administered on 08:19; Admin Dose 2 MG; Start 02/22/17 at 07:00; Stop 02/22/17 at 12:00 Hydromorphone HCl (Dilaudid) 2 mg Q6H PRN PO PAIN LEVEL 8-10; Start 02/22/17 at 08:00 Miscellaneous Information (*Rx Drug Level Order Reminder*) VANCOMYCIN TROUGH ON 12... ONCE ONCE XX ; Start 02/22/17 at 19:00; Stop 02/22/17 at 19:01 MICHA GUERRERO Feb 22, 2017 11:48
[2017-02-22] MEDS: HYDROmorphONE 2 MG TAB PO PRN ×2 (12:06→18:00)
[2017-02-22] MEDS: RIVAROXABAN 20 MG TABLET PO SCH (18:00)
[2017-02-23] VITALS (7 sets, daily range): BP systolic 153–166; BP diastolic 110–117; PULSE 88–108; RESP 18
[2017-02-23] MEDS: VANCOMYCIN 1 GM (PMX) 250 ML IVPB SCH (07:53)
[2017-02-23] MEDS: DIPHENHYDRAMINE 50 MG INJ IV PRN (07:53)
[2017-02-23] MEDS: HYDROmorphONE 2 MG TAB PO PRN (07:54)
[2017-02-23] MEDS: HYDROXYCHLOROQUINE 200 MG TAB PO SCH (07:59)
--- NOTE | 2017-02-23 10:08 | CONS ---
Date/Time of Note Date/Time of Note DATE: 02/23/17 TIME: 10:04 Assessment/Plan Assessment/Plan Chief Complaint/Hosp Course Sheila pain management consultation this 36-year-old female who states she has a history of osteomyelitis of her lower sacral spine and is scheduled to have a definitive surgical procedure within the next month at [facility] in [place]. Patient describes the pain is lumbosacral spine without radiations in the lower extremity but she states she has pain everywhere. She describes her pain as throbbing grade 10/10 however the patient appears to be somewhat comfortable at this time. As an outpatient he says she is receiving 4 mg Dilaudid IV every 4 hours she takes it 3-4 times a day as well as Benadryl IV push she does this herself states that she receives these medications by her primary care physician pain management doctor from [place]. States that she has gone through the drug enforcement administration here with her pain management physician who has flown out from [place] to make arrangements for her to receive pain control medications intravenously. Morphine 2 mg IV every 4 hours states that is not controlling her discomfort and Benadryl 50 mg IV twice daily as needed. States is interfering with her physical function social relations mood and sleeping patterns overall function is impaired denies nausea vomiting constipation itching mental cloudiness sweating fatigue drowsiness. Denies oversedation in the past denies alcohol or drug use or street drug abuse states she has never been intoxicated she does not abuse her current medications by her history. Patient did not appear to be unkempt she is requesting early renewals in a different medication from morphine to Dilaudid she is not negotiating with me for p.o. pain medications she seems to be somewhat insistent that she wants intravenous and that p.o. medications do not control her pain. Therefore she is requesting change in route of administration states she has never had DUIs or been arrested by police. There she has never been admitted to a drug rehab. Problems: Additional Assessment/Plan History of osteomyelitis Chronic pain syndrome Obesity History of connective tissue disorder undocumented I have asked patient to deliver medical records she states that somebody is on her way to deliver him at this time. In the meantime strongly recommend not re-prescribing opioids at discharge. Patient states she has a pain management physician who routinely since her the intravenous Dilaudid. I believe this is dangerous since patient does not have a pain management physician in [place] and by history states that her pain management doctor at [facility] in [place] is controlling her pain management and her opioid prescribing. Consultation Date/Type/Reason Admit Date/Time Feb 20, 2017 at 20:58 Initial Consult Date 02/22/17 Type of Consultation: Pain management Referring Provider: MICHA GUERRERO Exam/Review of Systems Vital Signs Vitals Vital Signs Date Time Temp Pulse Resp B/P Pulse Ox O2 Delivery O2 Flow Rate FiO2 02/23/17 08:27 98.3 98 18 153/112 94 02/20/17 22:02 Room Air Intake and Output 02/22/17 02/22/17 02/23/17 15:00 23:00 07:00 Intake Total 1225 ml 450 ml Balance 1225 ml 450 ml Results Result Diagram: 02/20/17 1820 02/20/17 1820 Medications Medications Current Medications Ondansetron HCl (Zofran Inj) 4 mg Q6H PRN IV NAUSEA AND/OR VOMITING; Start 02/20/17 at 22:30 Acetaminophen (Tylenol Tab) 650 mg Q6H PRN PO PAIN LEVEL 1-3 OR FEVER; Start 02/20/17 at 22:30 Docusate Sodium (Colace) 100 mg Q12H PRN PO CONSTIPATION; Start 02/20/17 at 22: 30 Hydroxychloroquine Sulfate (Plaquenil) 400 mg DAILY PO Last administered on 07:59; Admin Dose 400 MG; Start 02/20/17 at 22:30 Hydralazine HCl (Apresoline) 10 mg Q4H PRN IV SBP > 220 and/or DBP > 120; Start 02/20/17 at 23:30 Diphenhydramine HCl 50 mg 50 mg BID PRN IV ITCHING Last administered on 07:53; Admin Dose 50 MG; Start 02/21/17 at 06:30 Vancomycin HCl (Vancocin) 250 ml @ 125 mls/hr Q12H IVPB Last administered on 02/23/17 07:53; Admin Dose 125 MLS/HR; Start 02/21/17 at 08:00 Hydromorphone HCl (Dilaudid) 2 mg Q6H PRN PO PAIN LEVEL 8-10 Last administered on 02/23/17 07:54; Admin Dose 2 MG; Start 02/22/17 at 08:00 ZENY BURR Feb 23, 2017 10:08
--- NOTE | 2017-02-23 10:31 | PN ---
Date/Time of Note Date/Time of Note DATE: 02/23/17 TIME: 10:26 Assessment/Plan VTE Prophylaxis VTE Prophylaxis Intervention: SCD's Lines/Catheters IV Catheter Type (from Nrs): PICC Line Urinary Cath still in place: No Assessment/Plan Chief Complaint/Hosp Course Assessment and plan 1. Left-sided weakness. CT scan of the brain was negative for any acute intracranial findings. Questionable malingering. Patient was seen by teleneurologist who after exam also had concern for possible malingering. Will get PT/OT/ST for now. Repeat MRI of the brain with contrast showed no evidence of abnormal enhancement to suggest white matter lesion. Cervical spine MRI showed no convincing cervical spinal cord abnormality or enhancement and no evidence of osteomyelitis. There is only seen mild to moderate discogenic disease at C7-T1. Thoracic spine MRI with contrast showed no convincing thoracic spinal cord abnormal signal intensity or enhancement and no significant thoracic spinal cord or foraminal stenosis. Await PT evaluation. Suspect patient is malingering. Discussed with school social worker, will get telepsychiatrist to follow 2. 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 Patient does report following up at clinic with neurosurgeon for this issue. Patient for outpatient follow-up with this issue although it is noted that recent thoracic and cervical spinal MRI showed no evidence of osteomyelitis 3. Chronic pain syndrome. There is also questionable pain seeking behavior. Continue with pain management physician recommendations. History of lupus. Resume on Plaquenil. 4. History of multiple pulmonary embolism. Continue on Xarelto for now. Disposition and plan: suspect malingering. Additionally patient is refusing medical compliance and refusing laboratory draws. f/u PT recs. Discussed with school social worker, will get telepsychiatrist consultation Discussed plan of care with Problems: Subjective 24 Hr Interval Summary Free Text/Dictation Comfortable at present. No specific complaints Exam/Review of Systems Vital Signs Vitals Vital Signs Date Time Temp Pulse Resp B/P Pulse Ox O2 Delivery O2 Flow Rate FiO2 02/23/17 08:27 98.3 98 18 153/112 94 02/20/17 22:02 Room Air Intake and Output 02/22/17 02/22/17 02/23/17 15:00 23:00 07:00 Intake Total 1225 ml 450 ml Balance 1225 ml 450 ml Exam Constitutional: alert, oriented Psych: nl mood/affect Head: normocephalic Neck: non-tender, supple Respiratory: clear to auscultation, normal air movement Cardiovascular: regular rate and rhythm Gastrointestinal: non-tender, soft Musculoskeletal: No swelling Neurological: nl mental status, nl speech Results Result Diagram: 02/20/17181902/20/171819 Medications Medications Current Medications Ondansetron HCl (Zofran Inj) 4 mg Q6H PRN IV NAUSEA AND/OR VOMITING; Start 02/20/17 at 22:30 Acetaminophen (Tylenol Tab) 650 mg Q6H PRN PO PAIN LEVEL 1-3 OR FEVER; Start 02/20/17 at 22:30 Docusate Sodium (Colace) 100 mg Q12H PRN PO CONSTIPATION; Start 02/20/17 at 22: 30 Hydroxychloroquine Sulfate (Plaquenil) 400 mg DAILY PO Last administered on 07:59; Admin Dose 400 MG; Start 02/20/17 at 22:30 Hydralazine HCl (Apresoline) 10 mg Q4H PRN IV SBP > 220 and/or DBP > 120; Start 02/20/17 at 23:30 Diphenhydramine HCl 50 mg 50 mg BID PRN IV ITCHING Last administered on 07:53; Admin Dose 50 MG; Start 02/21/17 at 06:30 Vancomycin HCl (Vancocin) 250 ml @ 125 mls/hr Q12H IVPB Last administered on 02/23/17 07:53; Admin Dose 125 MLS/HR; Start 02/21/17 at 08:00 Hydromorphone HCl (Dilaudid) 2 mg Q6H PRN PO PAIN LEVEL 8-10 Last administered on 02/23/17 07:54; Admin Dose 2 MG; Start 02/22/17 at 08:00 MICHA GUERRERO Feb 23, 2017 10:31
== END 2017-02-23 13:30 | disposition left against medical advice (07) ==
LOC: E/R 18:06 → INTOOBSV 20:58 → MS4 20:58
PROVIDERS: ADMIT Family Medicine; ATTEND Family Medicine
DX: R53.1 Weakness (principal); M46.23 Osteomyelitis of vertebra, cervicothoracic region; M32.9 Systemic lupus erythematosus, unspecified; D58.9 Hereditary hemolytic anemia, unspecified; G89.4 Chronic pain syndrome; E66.9 Obesity, unspecified; Z68.34 Body mass index [BMI] 34.0-34.9, adult; Z86.73 Personal history of transient ischemic attack (TIA), and cerebral infarction without residual deficits; Z88.6 Allergy status to analgesic agent; Z88.2 Allergy status to sulfonamides; Z88.8 Allergy status to other drugs, medicaments and biological substances; Z91.048 Other nonmedicinal substance allergy status; Z91.041 Radiographic dye allergy status; Z86.718 Personal history of other venous thrombosis and embolism; Z86.711 Personal history of pulmonary embolism; Z79.01 Long term (current) use of anticoagulants
CPT/HCPCS: 70450; 70551; 70553; 71010; 72156; 72157; 80053; 82550; 82553; 83036; 84484; 85025; 85610; 85730; 92610; 93005; 93306; 96374; 96375; 96376; 97110; 97163; 97167; 97530; 97535; 99285; G0378; G8978; G8979; G8987; G8988; G8996; G8997; G8998; J1170; J1200; J2060; J2270; J2405; J2997; J3370; 99217

== ENCOUNTER 2017-03-31 18:50 | Inpatient (IN) | END 2017-04-01 10:32 | disposition left against medical advice (07) | DRG 948 ==